=== PATIENT | female | born 1940 | race Caucasian/White ===

== ENCOUNTER 2021-04-28 23:35 | Inpatient (IN) | payer MEDICARE, BC ==
[~2021-04-28] VITALS: Ht 160 cm; Wt 54.9 kg
--- NOTE | 2021-04-29 | NUR ---
PT WOO WITH PSYCHIATRIC 5150 HOLD FOR INCREASED BEHAVIOUR AT FACILITY
[2021-04-29] MEDS ORDERED: OLANZAPINE 10 MG VIAL IM ONE ×2 (00:22→00:30)
[2021-04-29 03:02] LABS: BASOPHILS # (AUTO) 0.1 K/uL (0.0-0.2); BASOPHILS % (AUTO) 1.1 % (0.0-2.0); EOSINOPHILS % (AUTO) 1.1 % (0.0-6.0); HEMATOCRIT 37 % (33-45); LYMPHOCYTES # (AUTO) 2.8 K/uL (0.8-4.8); LYMPHOCYTES % (AUTO) 23.9 % (20.0-44.0); MEAN CORPUSCULAR HGB CONC 32 g/dl (31.0-36.0); MEAN CORPUSCULAR VOLUME 93 fL (82-100); MONOCYTES # (AUTO) 1.1 K/uL (0.1-1.30); MONOCYTES % (AUTO) 9.6 % (2.0-12.0); NEUTROPHILS # (AUTO) 7.5 K/uL (1.8-8.9); NEUTROPHILS % (AUTO) 64.3 % (43.0-81.0); PLATELET COUNT (AUTO) 323 K/uL (150-450); RED BLOOD CELL COUNT(AUTO) 4.01 MIL/uL (4.0-5.2); WHITE BLOOD COUNT (AUTO) 11.6 K/uL (4.3-11.0)
[2021-04-29 03:16] LABS: BILIRUBIN,URINE NEGATIVE (NEGATIVE); COLOR,URINE YELLOW (YELLOW); LEUKOCYTE ESTERASE ,URINE NEGATIVE (NEGATIVE); NITRITE, URINE NEGATIVE (NEGATIVE); PH,URINE 5.5 (5.0-8.0); PROTEIN,URINE NEGATIVE (NEGATIVE); UGLUCOSE 250 MG/DL mg/dL (NEGATIVE); UROBILINOGEN,URINE 0.2 EU/dL (0.2)
[2021-04-29 04:37] LABS: CALCIUM, SERUM 9.2 mg/dL (8.5-10.1); CARBON DIOXIDE 23 mmol/L (21-32); CHLORIDE 107 mmol/L (98-107); CREATININE 1.1 mg/dL (0.6-1.3); GLUCOSE 198 mg/dL (74-106); POTASSIUM 5.1 mmol/L (3.5-5.1); SODIUM SERUM 140 mmol/L (136-145); UREA NITROGEN, BLOOD 26 mg/dL (7-18)
[2021-04-29 04:42] LABS: ALANINE AMINOTRANSFERASE 68 U/L (12-78); ALBUMIN 3.7 g/dL (3.4-5.0); ALKALINE PHOSPHATASE 185 U/L (46-116); ASPARTATE AMINOTRANSFERASE 37 U/L (15-37); TOTAL PROTEIN, SERUM 7.5 g/dL (6.4-8.2)
[2021-04-29 04:43] LABS: ACETAMINOPHEN 0 ug/ml (10-30); ALCOHOL, BLOOD < 0 mg/dL (0-0); BILIRUBIN,DIRECT 0.1 mg/dL (0.0-0.2)
--- NOTE | 2021-04-29 04:59 | NUR ---
report given to serena brooks
--- NOTE | 2021-04-29 05:00 | NUR ---
bed 217
[2021-04-29] MEDS ORDERED: METF-442 PO (05:06)
[2021-04-29] MEDS ORDERED: METO25TA6 PO (05:06)
[2021-04-29] MEDS ORDERED: ESCI5TAB PO (05:07)
[2021-04-29] MEDS ORDERED: LOSA50TA39 PO (05:08)
[2021-04-29] MEDS ORDERED: ASPI-1169 PO (05:10)
[2021-04-29] MEDS ORDERED: GLIP5TAB13 PO (05:11)
[2021-04-29] MEDS ORDERED: POLY17PO4 PO (05:11)
[2021-04-29] MEDS ORDERED: FAMO20TA8 PO (05:12)
[2021-04-29] MEDS ORDERED: LEVO125T8 PO (05:13)
[2021-04-29] MEDS ORDERED: QUET25TA PO (05:14)
[2021-04-29] MEDS ORDERED: ATOR10TA PO (05:14)
[2021-04-29] MEDS ORDERED: GABA-532 PO (05:15)
[2021-04-29] MEDS ORDERED: IBUP-1953 PO (05:17)
--- NOTE | 2021-04-29 05:17 | NUR ---
MRSA SWAB COLLECTED AND SENT TO LAB. PATIENT'S BELONGINGS LIST DONE.
[2021-04-29] MEDS ORDERED: ALBU2.5V38 NEB (05:18)
[2021-04-29] MEDS ORDERED: CLON0.5T4 PO (05:20)
[2021-04-29 06:15] LABS: BILIRUBIN,TOTAL 0.4 mg/dL (0.2-1.0)
--- NOTE | 2021-04-29 06:21 | NUR ---
PT TAKEN TO GPS VIA [place].
--- NOTE | 2021-04-29 06:43 | NUR ---
RN NOTE: PATIENT REFUSED FULL SKIN ASSESSMENT, UNCOOPERATIVE, AGITATED, YELLING, SCREAMING, AGGRESSIVE, NON REDIRECTABLE AT THIS TIME. ONLY ALLOWED RIGHT, LEFT ARM & LEFT SECOND TOE PICTURE.
--- NOTE | 2021-04-29 06:44 | NUR ---
RN NOTE PATIENT REFUSED VITALS UPON ADMISSION, TOOK OFF BP CUFF AND THREW IT ON THE FLOOR. UNCOOPERATIVE, NON COMPLAINT, AGITATED, PARANOID, LOUD AND KEPT REFUSING TO COOPERATE WITH PLAN OF CARE.
--- NOTE | 2021-04-29 06:59 | NUR ---
RN NOTE PATIENT REFUSED MRSA X 3, UNCOOPERATIVE, ASKED THE NURSE TO LEAVE THE ROOM AND NEVER BOTHER HER AGAIN.
[2021-04-29] MEDS ORDERED: MAG HYDROX/AL HYDROX/SIMETH 30 ML UDC PO PRN (07:00)
[2021-04-29] MEDS ORDERED: MAGNESIUM HYDROXIDE 30 ML UDC PO PRN (07:00)
[2021-04-29] MEDS ORDERED: ACETAMINOPHEN 325 MG TABLET PO PRN (07:00)
[2021-04-29] MEDS ORDERED: TEMAZEPAM 7.5 MG CAPSULE PO PRN (07:00)
--- NOTE | 2021-04-29 07:10 | NUR ---
Admitted an 81 years old female on 5150 hold for DTS and GD at 0617. Pt. arrived to the unit via a gurney, assisted by nurse from [facility], ER. Per hold, patient is very loud, not following directions, yelling, being disruptive. patient refused her meds. [facility] nurse kylee reported, patient was hitting her head on the door, yelling not listening, refusing meds. patient is uncooperative with plan of care, disruptive, yelling, screaming, loud, paranoid, unpredictable, agitated, aggressive. Patient refused vitals, mrsa & full skin assessment. Patient refused to provide covid vaccine and pneumococcal vaccine information, keeps repeating, " I am not on 5950 hold, it does not exist." Ambulatory but unsteady. Belongings & contraband done. pt. only has top and shirt. Pt. was offered snack & fluids but patient refused. BS is 109 mg/dl. patient refused to sign all admission papers. Pt. oriented to the unit, needs attended, Endorsed to am RN for continuity of care and admission assessment.
[2021-04-29] MEDS ORDERED: BLOOD SUGAR DIAGNOSTIC 1 EACH STRIP IN ONE (07:30)
[2021-04-29 08:00] VITALS: BP 131/63
[2021-04-29] MEDS ORDERED: ALBUTEROL FS 2.5 MG/3 ML VIAL.NEB NEB PRN (10:00)
[2021-04-29] MEDS ORDERED: IBUPROFEN 400 MG TABLET PO PRN (10:00)
[2021-04-29] MEDS: GABAPENTIN 100 MG CAPSULE PO SCH ×2 (13:00→21:12)
[2021-04-29 16:08] VITALS: BP 132/66
[2021-04-29] MEDS: glipiZIDE 5 MG TABLET PO SCH (16:30)
[2021-04-29] MEDS: METOPROLOL TARTRATE 25 MG TABLET PO SCH (17:00)
[2021-04-29] MEDS: METFORMIN 500 MG TABLET PO SCH (17:00)
--- NOTE | 2021-04-29 17:19 | NUR ---
GPS/RN PT REFUSED THE MEDS. OFFERED X3. PT STATES" I DO NOT NEED MEDS..." PT AGREED TO LET RN TO DO ACCUCHECK.
[2021-04-29] MEDS: ATORVASTATIN 10 MG TABLET PO SCH (17:27)
--- NOTE | 2021-04-29 17:46 | NUR ---
GPS/RN PT WAS OFFERED LOPRESSOR AND NEURONTIN. PT REFUSED STATING :" I DO NOT HAVE HYPERTENSION, YOU,WHAT, GONNA KILL ME..." DR STEVEN MADE AWARE OF PT REFUSAL.
[2021-04-29] MEDS: clonazePAM 0.5 MG TABLET PO SCH (18:00)
--- NOTE | 2021-04-29 18:11 | NUR ---
RN-CO: PATIENT REFUSED KLONOPIN WHEN I OFFERD IT TO HERE. PT STATED " I DON'T NEED ANY MEDICATIONS, BEC I DON'T KNOW WHAT ARE YOU GIVING ME."
--- NOTE | 2021-04-29 18:11 | NUR ---
GPS/RN PT REFUSED CLONAZEPAM PO OFFERED X3.
[2021-04-29 19:56] VITALS: BP 137/65
[2021-04-29] MEDS: DIVALPROEX SODIUM 250 MG TABLET.DR PO SCH (21:00)
--- NOTE | 2021-04-29 21:14 | NUR ---
GPS-RN NOTES: MEDICATION COMPLIANCE PATIENT REFUSED SCHEDULED DEPAKOTE FOR TONIGHT. DESPITE OF EDUCATION PROVIDED REGARDING MEDICATION COMPLIANCE. EXPLAINED RISKS/BENEFITS. PATIENT CONTINUED TO REFUSE X3. WILL CONTINUE TO MONITOR. Addendum: 04/30/21 at 0642 by NIC HERNANDEZ RN CORRECTION ON ABOVE DOCUMENTATION: MEDICATION REFUSAL NOT MEDICATION COMPLIANCE
[2021-04-30] MEDS: GABAPENTIN 100 MG CAPSULE PO SCH ×3 (05:20→21:37)
[2021-04-30] MEDS: clonazePAM 0.5 MG TABLET PO SCH ×2 (06:00→17:13)
[2021-04-30 06:39] LABS: BASOPHILS # (AUTO) 0.1 K/uL (0.0-0.2); BASOPHILS % (AUTO) 0.8 % (0.0-2.0); EOSINOPHILS % (AUTO) 1.7 % (0.0-6.0); HEMATOCRIT 34 % (33-45); HEMOGLOBIN 11.3 g/dL (11.5-14.8); LYMPHOCYTES # (AUTO) 2.7 K/uL (0.8-4.8); LYMPHOCYTES % (AUTO) 25.8 % (20.0-44.0); MEAN CORPUSCULAR HGB CONC 33 g/dl (31.0-36.0); MEAN CORPUSCULAR VOLUME 91 fL (82-100); MONOCYTES # (AUTO) 0.7 K/uL (0.1-1.30); MONOCYTES % (AUTO) 6.4 % (2.0-12.0); NEUTROPHILS # (AUTO) 6.8 K/uL (1.8-8.9); NEUTROPHILS % (AUTO) 65.3 % (43.0-81.0); PLATELET COUNT (AUTO) 307 K/uL (150-450); RED BLOOD CELL COUNT(AUTO) 3.72 MIL/uL (4.0-5.2); WHITE BLOOD COUNT (AUTO) 10.4 K/uL (4.3-11.0)
--- NOTE | 2021-04-30 06:39 | NUR ---
PS-RN NOTES: MEDICATION REFUSAL PATIENT REFUSED SCHEDULED CLONAZEPAM AT 0600. DESPITE OF EDUCATION PROVIDED REGARDING MEDICATION COMPLIANCE AND EXPLAINED RISKS/BENEFITS. PATIENT CONTINUED TO REFUSE X3. PATIENT STATED, "NO, I DON'T NEED IT. WILL ENDORSE TO DAY SHIFT NURSE FOR CONTINUITY OF CARE.
[2021-04-30 07:13] LABS: CALCIUM, SERUM 8.3 mg/dL (8.5-10.1); CREATININE 0.7 mg/dL (0.6-1.3); POTASSIUM 4.5 mmol/L (3.5-5.1)
[2021-04-30] MEDS: glipiZIDE 5 MG TABLET PO SCH ×2 (07:30→16:14)
--- NOTE | 2021-04-30 07:30 | NUR ---
RECEIVED PATIENT RESTING IN HER BED, ALERT, GUARDED, NO ACUTE DISTRESS NOTED..VSS. REFUSED FULL BODY ASSESSMENT. IN COOPERATIVE WITH CARE.SAFETY PRECAUTIONS OBSERVED ALL NEEDS ATTENDED AND ANTICIPATED. WILL CONTINUE MONITORING Q15MIN FOR SAFETY AND BEHAVIOR.
[2021-04-30 08:00] VITALS: BP 133/63
[2021-04-30] MEDS: LEVOTHYROXINE SODIUM 125 MCG TABLET PO SCH (08:35)
[2021-04-30] MEDS: ASPIRIN 81 MG TAB.CHEW PO SCH (08:36)
[2021-04-30] MEDS: LOSARTAN POTASSIUM 50 MG TABLET PO SCH (08:40)
[2021-04-30] MEDS: DIVALPROEX SODIUM 250 MG TABLET.DR PO SCH ×2 (08:42→21:37)
[2021-04-30] MEDS: HALOPERIDOL 1 MG TABLET PO SCH ×3 (08:42→16:43)
[2021-04-30] MEDS: METFORMIN 500 MG TABLET PO SCH ×2 (08:42→16:43)
[2021-04-30] MEDS: METOPROLOL TARTRATE 25 MG TABLET PO SCH ×2 (08:42→16:43)
[2021-04-30] MEDS: FAMOTIDINE (20 MG) 20 MG TABLET PO SCH (08:43)
[2021-04-30] MEDS: LORAZEPAM 0.5 MG TABLET PO PRN (09:55)
--- NOTE | 2021-04-30 13:24 | NUR ---
VINICIO Initial Discharge Plan: Pt currently resides at [facility]. VINICIO contacted [facility] to see if pt is welcomed back and will notify this SW. VINICIO will coordinate with patient, MD, and treatment team for appropriate discharge.
--- NOTE | 2021-04-30 13:42 | NUR ---
VINICIO Family Contact: VINICIO received a call from Aurea (Friend) ([phone]) who stated that she is the DPOA. VINICIO requested for Aurea to send DPOA documents to this SW. VINICIO left a detailed voicemail to gather collateral. SW waiting for a call back,
--- NOTE | 2021-04-30 15:22 | NUR ---
SNF Contact: VINICIO contacted Arnol Méndez from [facility] who stated that the pt is welcomed back upon dc.
[2021-04-30 16:00] VITALS: BP 136/63
[2021-04-30 16:21] VITALS: BP 136/63
[2021-04-30] MEDS: ATORVASTATIN 10 MG TABLET PO SCH (17:13)
[2021-04-30 20:08] VITALS: BP 134/57
[2021-05-01] MEDS: GABAPENTIN 100 MG CAPSULE PO SCH ×4 (05:00→21:00)
[2021-05-01] MEDS: clonazePAM 0.5 MG TABLET PO SCH ×3 (05:27→17:32)
--- NOTE | 2021-05-01 05:36 | NUR ---
Pt refused meds Klonopin 0.25 mg po and Neurontin po. Offered x3 and explained risk and benefits. Still refused. Pt is very agitated and aggressive. Stating, "Get out of here, i dont want any medicines at this time." Charge nurse RN aware. Will endorse to next shift.
[2021-05-01] MEDS: LEVOTHYROXINE SODIUM 125 MCG TABLET PO SCH (07:30)
[2021-05-01] MEDS: glipiZIDE 5 MG TABLET PO SCH ×2 (07:30→16:30)
[2021-05-01 08:00] VITALS: BP 122/68
[2021-05-01] MEDS: ASPIRIN 81 MG TAB.CHEW PO SCH (08:56)
[2021-05-01] MEDS: LOSARTAN POTASSIUM 50 MG TABLET PO SCH (08:56)
[2021-05-01] MEDS: DIVALPROEX SODIUM 250 MG TABLET.DR PO SCH ×2 (08:57→21:00)
[2021-05-01] MEDS: HALOPERIDOL 1 MG TABLET PO SCH ×3 (08:57→17:00)
[2021-05-01] MEDS: METFORMIN 500 MG TABLET PO SCH ×2 (08:57→17:00)
[2021-05-01] MEDS: FAMOTIDINE (20 MG) 20 MG TABLET PO SCH (08:58)
[2021-05-01] MEDS: METOPROLOL TARTRATE 25 MG TABLET PO SCH ×2 (09:00→17:32)
[2021-05-01] MEDS ORDERED: HALOPERIDOL LACTATE INJ 5 MG/ML VIAL IM STA (09:57)
[2021-05-01] MEDS ORDERED: diphenhydrAMINE HCL 50 MG/ML VIAL IM STA (09:58)
--- NOTE | 2021-05-01 10:07 | NUR ---
VINICIO Family Contact: VINICIO Aurea (Friend) ([phone]) who states that she is the DPOA and will send documents to this SW. VINICIO contacted her and left her a detailed voicemail to of information to send the DPOA. She had left this SW a voicemail requesting to speak to the doctor. VINICIO notified NAYAN Cook
--- NOTE | 2021-05-01 10:29 | NUR ---
Patient start to get agitated in her room ,banging her head on the ,yelling and screaming .offered Ativan po patient refused ,redirect patient into lower stimuli setting and tried to calm her down but unsuccessful.Fiona Guillen DNP notified with new order Haldol 2MG IM ,BENADRYL 25MG given at 10:29 ,close monitoring on patient ,patient refused VS x4 ,no S/S distress noted ,no SOB .Will continue to monitor for safety q15 minutes.
[2021-05-01 16:30] VITALS: BP 131/71
[2021-05-01] MEDS: ATORVASTATIN 10 MG TABLET PO SCH (17:31)
[2021-05-01 20:12] VITALS: BP 162/73
--- NOTE | 2021-05-01 22:17 | NUR ---
Pt awake and alert, offered 2100 meds 3x, and pt still refused to take it, charge nurse informed...
[2021-05-02] MEDS: GABAPENTIN 100 MG CAPSULE PO SCH ×3 (05:00→21:12)
[2021-05-02] MEDS: clonazePAM 0.5 MG TABLET PO SCH ×2 (05:01→17:07)
[2021-05-02 08:00] VITALS: BP 127/77
[2021-05-02] MEDS: FAMOTIDINE (20 MG) 20 MG TABLET PO SCH (08:47)
[2021-05-02] MEDS: HALOPERIDOL 1 MG TABLET PO SCH ×4 (08:48→17:00)
[2021-05-02] MEDS: DIVALPROEX SODIUM 250 MG TABLET.DR PO SCH ×2 (08:48→21:00)
[2021-05-02] MEDS: METFORMIN 500 MG TABLET PO SCH ×3 (08:48→17:06)
[2021-05-02] MEDS: ASPIRIN 81 MG TAB.CHEW PO SCH (08:49)
[2021-05-02] MEDS: glipiZIDE 5 MG TABLET PO SCH ×2 (08:49→17:06)
[2021-05-02] MEDS: METOPROLOL TARTRATE 25 MG TABLET PO SCH ×2 (08:53→17:06)
[2021-05-02] MEDS: LEVOTHYROXINE SODIUM 125 MCG TABLET PO SCH (08:54)
[2021-05-02] MEDS: LOSARTAN POTASSIUM 50 MG TABLET PO SCH (08:54)
[2021-05-02] MEDS: LORAZEPAM 0.5 MG TABLET PO PRN (12:57)
--- NOTE | 2021-05-02 12:57 | NUR ---
GIVEN ATIVAN FOR AGITATION.
[2021-05-02 16:00] VITALS: BP 150/89
[2021-05-02] MEDS: ATORVASTATIN 10 MG TABLET PO SCH (17:05)
--- NOTE | 2021-05-02 17:52 | NUR ---
refused zohreh. metoprolol,although advised against it.bp 150/89,hrate 62.
[2021-05-02 20:00] VITALS: BP 151/69
--- NOTE | 2021-05-02 21:19 | NUR ---
RN NOTE PT REFUSED TO TAKE DEPAKOTE, EXPLAINED RISKS AND BENEFITS, VERBALIZES UNDERSTANDING, STILL REFUSED. PT TOOK NEURONTIN SCHEDULED. WILL CONTINUE TO MONITOR.
[2021-05-03] MEDS: GABAPENTIN 100 MG CAPSULE PO SCH ×3 (05:04→21:00)
[2021-05-03] MEDS: clonazePAM 0.5 MG TABLET PO SCH ×2 (06:00→18:00)
[2021-05-03] MEDS: glipiZIDE 5 MG TABLET PO SCH ×2 (07:30→16:30)
[2021-05-03 08:00] VITALS: BP 140/70
[2021-05-03] MEDS: LEVOTHYROXINE SODIUM 125 MCG TABLET PO SCH (08:41)
[2021-05-03] MEDS: ASPIRIN 81 MG TAB.CHEW PO SCH (08:41)
[2021-05-03] MEDS: LOSARTAN POTASSIUM 50 MG TABLET PO SCH (08:41)
[2021-05-03] MEDS: FAMOTIDINE (20 MG) 20 MG TABLET PO SCH (08:43)
[2021-05-03] MEDS: METOPROLOL TARTRATE 25 MG TABLET PO SCH ×2 (09:00→16:42)
[2021-05-03] MEDS: DIVALPROEX SODIUM 250 MG TABLET.DR PO SCH ×2 (09:00→21:00)
[2021-05-03] MEDS: METFORMIN 500 MG TABLET PO SCH ×2 (09:00→16:42)
[2021-05-03] MEDS: HALOPERIDOL 1 MG TABLET PO SCH ×3 (09:00→17:00)
--- NOTE | 2021-05-03 09:38 | NUR ---
Pt. is selective on meds. Refused to take Haldol po, Depakote, Glucotrol, Metformin and Lopressor. Pt. said her BP and BS is ok and she doesn't need Haldol and Depakote. Explained on the importance and offered 3x and still refusing.
--- NOTE | 2021-05-03 12:53 | NUR ---
RN-CO: DR VILLEGAS MADE AWARE OF THE RIESE HEARING TODAY AT 1600.
--- NOTE | 2021-05-03 13:42 | NUR ---
Pt. took only the Gabapentin at this time and refused to take the Haldol po. Explained on the importance and offered 3x and still refusing and said "I don't need it".
[2021-05-03 16:00] VITALS: BP 142/72
--- NOTE | 2021-05-03 16:53 | NUR ---
Received a call from Dr. Chirinos telling that Riese is upheld and gave an order to give Haldol 2 mg IM prn for each refusal of Haldol po.
[2021-05-03] MEDS: HALOPERIDOL LACTATE INJ 5 MG/ML VIAL IM PRN (17:05)
--- NOTE | 2021-05-03 17:31 | NUR ---
Haldol given IM as ordered for pt. refused Haldol po.
[2021-05-03] MEDS: ATORVASTATIN 10 MG TABLET PO SCH (18:00)
--- NOTE | 2021-05-03 20:00 | NUR ---
RN NOTES: REFUSED VITAL SIGNS PT. REFUSED VITAL SIGNS OFFERD X3 EXPLINED RISKS AND BENFITS STRONGLY REFUSED, PT. IS VERY AGITATED AND AGGRESSIVE , NON REDIRECTABLE ,PT. STATING NO NEEDS VITAL SIGNS , I AM OK, CHARGE NURSE MADE AWRE, WILL CONTINUE WITH CARE.
--- NOTE | 2021-05-03 21:47 | NUR ---
RN NOTES: REFUSED MEDICATIONS PT. REFUSED DEPAKOTE 250 MG PO, GABAPENTIN 100 MG PO OFFERD X3 EXPLINED RISKS AND BENFITS STRONGLY REFUSED, PT. IS VERY AGITATED AND AGGRESSIVE ,PT. STATING GET OUT FROM HERE, I DONT WANT TAKE ANY MEDICATIONS, CHARGE NURSE MADE AWRE, WILL CONTINUE WITH CARE.
[2021-05-04] MEDS: GABAPENTIN 100 MG CAPSULE PO SCH ×3 (05:00→20:33)
[2021-05-04] MEDS: clonazePAM 0.5 MG TABLET PO SCH ×2 (05:38→17:18)
--- NOTE | 2021-05-04 05:39 | NUR ---
RN NOTES: REFUSED MEDICATIONS PT. REFUSED SCHEDULE MEDS, GABAPENTIN 100 MG PO, KLONOPIN 0.25 MG PO OFFERD X3 EXPLINED RISKS AND BENFITS STRONGLY REFUSED, PT. IS VERY AGITATED AND AGGRESSIVE ,PT. STATING , I DONT WANT TAKE ANY MEDICATIONS, CHARGE NURSE MADE AWRE, WILL CONTINUE WITH CARE.
[2021-05-04] MEDS: glipiZIDE 5 MG TABLET PO SCH ×2 (07:30→16:39)
[2021-05-04] MEDS: LEVOTHYROXINE SODIUM 125 MCG TABLET PO SCH (07:30)
[2021-05-04 08:00] VITALS: BP 142/75
[2021-05-04] MEDS: HALOPERIDOL 1 MG TABLET PO SCH ×2 (09:34→20:34)
[2021-05-04] MEDS: DIVALPROEX SODIUM 250 MG TABLET.DR PO SCH ×2 (09:34→20:33)
[2021-05-04] MEDS: FAMOTIDINE (20 MG) 20 MG TABLET PO SCH (09:39)
[2021-05-04] MEDS: ASPIRIN 81 MG TAB.CHEW PO SCH (09:39)
[2021-05-04] MEDS: METFORMIN 500 MG TABLET PO SCH ×2 (09:40→17:19)
[2021-05-04] MEDS: METOPROLOL TARTRATE 25 MG TABLET PO SCH ×2 (09:40→17:19)
[2021-05-04] MEDS: LOSARTAN POTASSIUM 50 MG TABLET PO SCH (09:40)
[2021-05-04 16:00] VITALS: BP 133/93
--- NOTE | 2021-05-04 16:15 | NUR ---
DPOA: VINICIO Villar (Friend) ([phone]) who states that she is the DPOA and sent documents to this VINICIO. VINICIO placed in chart.
[2021-05-04] MEDS: ATORVASTATIN 10 MG TABLET PO SCH (17:19)
--- NOTE | 2021-05-04 20:30 | NUR ---
RN NOTE CLONAZEPAM PULLED OUT ACCIDENTALLY AT THE WRONG TIME, IT IS TO BE GIVEN AT 0600. RETURNED MED TO [facility] THROUGH "MISC. RETURN" A WHOLE PILL. CHARGE NURSE AWARE.
[2021-05-04 21:15] VITALS: BP 149/67
[2021-05-05] MEDS: GABAPENTIN 100 MG CAPSULE PO SCH ×4 (05:06→21:22)
[2021-05-05] MEDS: clonazePAM 0.5 MG TABLET PO SCH ×2 (05:06→17:41)
[2021-05-05 08:00] VITALS: BP 127/67
[2021-05-05] MEDS: METOPROLOL TARTRATE 25 MG TABLET PO SCH ×2 (08:20→17:35)
[2021-05-05] MEDS: ASPIRIN 81 MG TAB.CHEW PO SCH (08:20)
[2021-05-05] MEDS: METFORMIN 500 MG TABLET PO SCH ×2 (08:21→17:34)
[2021-05-05] MEDS: LOSARTAN POTASSIUM 50 MG TABLET PO SCH (08:21)
[2021-05-05] MEDS: DIVALPROEX SODIUM 250 MG TABLET.DR PO SCH ×2 (08:21→21:22)
[2021-05-05] MEDS: LEVOTHYROXINE SODIUM 125 MCG TABLET PO SCH (08:22)
[2021-05-05] MEDS: FAMOTIDINE (20 MG) 20 MG TABLET PO SCH (08:22)
[2021-05-05] MEDS: HALOPERIDOL 1 MG TABLET PO SCH ×2 (08:22→21:22)
[2021-05-05] MEDS: glipiZIDE 5 MG TABLET PO SCH ×2 (08:28→17:34)
--- NOTE | 2021-05-05 09:30 | NUR ---
SUSPICIOUS IN AM AND CHECKING MEDS.
[2021-05-05 16:15] VITALS: BP 136/65
[2021-05-05] MEDS: ATORVASTATIN 10 MG TABLET PO SCH (17:34)
--- NOTE | 2021-05-05 17:41 | NUR ---
PT. REFUSED PANTERA.CLONOPIN.
--- NOTE | 2021-05-05 19:30 | NUR ---
GPS RN NOTE, RECEIVED PATIENT AWAKE AND IN BED, NO S/S OR COMPLAINTS OF PAIN AT THIS TIME. PATIENT IS DISPLAYING NO S/S OF APPARENT DISTRESS AT THIS TIME. PATIENT BREATHING IS UNLABORED WITH EQUAL RISE AND FALL OF THE CHEST. PATIENT IS ALERT AND ORIENTED X 2 ON ROOM AIR WITH A SPO2 95%. PATIENT IS SELECTIVE WITH MEDICATIONS, ANXIOUS AT TIMES, PARANOID, ARGUMENTATIVE, UNCOOPERATIVE AT TIMES, AND NEEDS REDIRECTION. PATIENT DENIES SUICIDAL AND HOMICIDAL IDEATIONS AT THIS TIME. PATIENT ASSISTED WITH TURNING AND REPOSITIONING Q2HR AND PRN FOR COMFORT AND CIRCULATION. PATIENT HAS NO NEEDS AT THIS TIME. PATIENT EDUCATED ON THE USE OF THE CALL MEJIA. PATIENT BED SIDE RAILS UP X 2 FOR SAFETY. PATIENT BED IS LOCKED, LOW, WITH BED ALARM ON. WILL CONTINUE TO MONITOR THIS PATIENT Q15 MINUTES WITH THE HELP OF STAFF TO MAINTAIN SAFETY.
[2021-05-05 20:00] VITALS: BP 128/61
[2021-05-06] MEDS: GABAPENTIN 100 MG CAPSULE PO SCH ×3 (05:28→21:27)
[2021-05-06] MEDS: clonazePAM 0.5 MG TABLET PO SCH ×2 (05:29→17:21)
--- NOTE | 2021-05-06 05:29 | NUR ---
GPS RN NOTE, PATIENT REFUSED KLONOPIN 0.25 MG PO Q12HR. OFFERED KLONOPIN THREE TIMES AND STILL PATIENT REFUSED STATING, " I DON'T FELL ANXIOUS SO I DON'T NEED ANY KLONOPIN ". EDUCATED PATIENT ON THE RISKS AND BENEFITS OF TAKING AND REFUSING KLONOPIN. WILL CONTINUE TO MONITOR MONITOR THIS PATIENT WITH THE HELP OF STAFF.
[2021-05-06 08:00] VITALS: BP 123/70
[2021-05-06] MEDS: ASPIRIN 81 MG TAB.CHEW PO SCH (08:29)
[2021-05-06] MEDS: glipiZIDE 5 MG TABLET PO SCH ×2 (08:29→17:27)
[2021-05-06] MEDS: LEVOTHYROXINE SODIUM 125 MCG TABLET PO SCH (08:29)
[2021-05-06] MEDS: FAMOTIDINE (20 MG) 20 MG TABLET PO SCH (08:30)
[2021-05-06] MEDS: HALOPERIDOL 1 MG TABLET PO SCH ×2 (08:30→21:00)
[2021-05-06] MEDS: DIVALPROEX SODIUM 250 MG TABLET.DR PO SCH ×2 (08:30→21:26)
[2021-05-06] MEDS: METOPROLOL TARTRATE 25 MG TABLET PO SCH ×2 (08:30→17:21)
[2021-05-06] MEDS: METFORMIN 500 MG TABLET PO SCH ×2 (08:30→17:21)
[2021-05-06] MEDS: LOSARTAN POTASSIUM 50 MG TABLET PO SCH (08:32)
[2021-05-06 16:00] VITALS: BP 146/67
[2021-05-06] MEDS: ATORVASTATIN 10 MG TABLET PO SCH (17:20)
[2021-05-06 20:22] VITALS: BP 143/67
[2021-05-06] MEDS: HALOPERIDOL LACTATE INJ 5 MG/ML VIAL IM PRN (21:43)
--- NOTE | 2021-05-06 21:43 | NUR ---
GPS-RN NOTES PATIENT REFUSED HALDOL PO. HALDOL 2MG IM GIVEN ORDERED
[2021-05-07] MEDS: GABAPENTIN 100 MG CAPSULE PO SCH ×3 (05:08→21:37)
[2021-05-07] MEDS: clonazePAM 0.5 MG TABLET PO SCH ×2 (06:00→17:14)
--- NOTE | 2021-05-07 06:19 | NUR ---
GPS-RN NOTES: MEDICATION REFUSAL PATIENT REFUSED SCHEDULED KLONOPIN AT 0600. DESPITE OF EDUCATION PROVIDED REGARDING MEDICATION COMPLIANCE. PATIENT CONTINUED TO REFUSE. PATIENT STATED "I DON'T NEED IT". WILL ENDORSE TO DAY SHIFT NURSE FOR CONTINUITY OF CARE.
[2021-05-07] MEDS: glipiZIDE 5 MG TABLET PO SCH ×2 (07:30→16:30)
[2021-05-07 08:00] VITALS: BP 131/55
[2021-05-07] MEDS: LOSARTAN POTASSIUM 50 MG TABLET PO SCH (08:11)
[2021-05-07] MEDS: ASPIRIN 81 MG TAB.CHEW PO SCH (08:11)
[2021-05-07] MEDS: DIVALPROEX SODIUM 250 MG TABLET.DR PO SCH ×2 (08:11→21:37)
[2021-05-07] MEDS: LEVOTHYROXINE SODIUM 125 MCG TABLET PO SCH (08:11)
[2021-05-07] MEDS: METOPROLOL TARTRATE 25 MG TABLET PO SCH ×2 (08:12→17:00)
[2021-05-07] MEDS: METFORMIN 500 MG TABLET PO SCH ×2 (08:12→16:42)
[2021-05-07] MEDS: FAMOTIDINE (20 MG) 20 MG TABLET PO SCH (08:12)
[2021-05-07] MEDS: HALOPERIDOL LACTATE INJ 5 MG/ML VIAL IM PRN (08:18)
[2021-05-07] MEDS: HALOPERIDOL 1 MG TABLET PO SCH ×2 (08:18→21:37)
--- NOTE | 2021-05-07 08:26 | NUR ---
PATIENT REFUSED HALDOL PO. HALDOL 2MG IM GIVEN ORDERED
[2021-05-07 16:00] VITALS: BP 150/77
[2021-05-07] MEDS: ATORVASTATIN 10 MG TABLET PO SCH (17:14)
--- NOTE | 2021-05-07 18:34 | NUR ---
UNABLE TO ADMINISTER IM HALDOL DECANOATE, PHARMACY WORKING ON CORRECT EMAR SCHEDULING. PER PHARMACY, THEY WILL INFORM US WHEN READY. WILL ENDORSE TO WALKER DUMONT.
--- NOTE | 2021-05-07 19:09 | NUR ---
ADMINISTERED IM HALDOL DECANOATE. WILL CONTINUE TO MONITOR.
[2021-05-07] MEDS ORDERED: HALOPERIDOL DECANOATE IM 100 MG/ML AMPUL IM SCH (19:30)
[2021-05-07 21:04] VITALS: BP 152/77
[2021-05-08] MEDS: GABAPENTIN 100 MG CAPSULE PO SCH ×3 (05:53→21:48)
[2021-05-08] MEDS: clonazePAM 0.5 MG TABLET PO SCH ×2 (05:54→17:05)
[2021-05-08] MEDS: glipiZIDE 5 MG TABLET PO SCH ×2 (07:30→16:30)
[2021-05-08 08:00] VITALS: BP 130/60
[2021-05-08] MEDS: LOSARTAN POTASSIUM 50 MG TABLET PO SCH (08:24)
[2021-05-08] MEDS: ASPIRIN 81 MG TAB.CHEW PO SCH (08:25)
[2021-05-08] MEDS: LEVOTHYROXINE SODIUM 125 MCG TABLET PO SCH (08:25)
[2021-05-08] MEDS: METOPROLOL TARTRATE 25 MG TABLET PO SCH ×2 (08:25→17:00)
[2021-05-08] MEDS: HALOPERIDOL 1 MG TABLET PO SCH ×2 (08:25→21:48)
[2021-05-08] MEDS: METFORMIN 500 MG TABLET PO SCH ×2 (08:25→17:00)
[2021-05-08] MEDS: DIVALPROEX SODIUM 250 MG TABLET.DR PO SCH ×2 (08:25→21:48)
[2021-05-08] MEDS: FAMOTIDINE (20 MG) 20 MG TABLET PO SCH (08:26)
--- NOTE | 2021-05-08 11:29 | NUR ---
DPOA: VINICIO Villar (Friend) ([phone]) DPOA and spoke with her in regards to pt's status and how she is doing.
[2021-05-08 16:09] VITALS: BP 148/75
[2021-05-08] MEDS: ATORVASTATIN 10 MG TABLET PO SCH (17:06)
[2021-05-09] MEDS: GABAPENTIN 100 MG CAPSULE PO SCH ×3 (05:45→20:57)
[2021-05-09] MEDS: clonazePAM 0.5 MG TABLET PO SCH ×2 (06:00→18:00)
[2021-05-09] MEDS: LEVOTHYROXINE SODIUM 125 MCG TABLET PO SCH (06:32)
[2021-05-09] MEDS: glipiZIDE 5 MG TABLET PO SCH ×2 (07:30→16:30)
[2021-05-09 08:00] VITALS: BP 120/57
[2021-05-09] MEDS: METFORMIN 500 MG TABLET PO SCH ×2 (08:25→17:00)
[2021-05-09] MEDS: ASPIRIN 81 MG TAB.CHEW PO SCH (08:25)
[2021-05-09] MEDS: METOPROLOL TARTRATE 25 MG TABLET PO SCH ×2 (08:26→17:00)
[2021-05-09] MEDS: FAMOTIDINE (20 MG) 20 MG TABLET PO SCH (08:27)
[2021-05-09] MEDS: DIVALPROEX SODIUM 250 MG TABLET.DR PO SCH ×2 (08:28→20:57)
[2021-05-09] MEDS: LOSARTAN POTASSIUM 50 MG TABLET PO SCH (08:29)
[2021-05-09] MEDS: HALOPERIDOL 1 MG TABLET PO SCH ×2 (08:32→20:57)
[2021-05-09 16:00] VITALS: BP 135/69
[2021-05-09] MEDS: ATORVASTATIN 10 MG TABLET PO SCH (18:00)
--- NOTE | 2021-05-09 19:30 | NUR ---
RN NOTES RECEIVED PT IN NO ACUTE RESPIRATORY DISTRESS. PT IN BEDROOM RESTING COMFORTABLY. NO SIGNS OF RESTLESSNESS AND AGITATION AT THIS TIME. WILL ENSURE TP PROVIDE SAFE AND COMFORTABLE ENVIRONMENT FOR THE PT AND TO MONITOR AND ADDRESS ALL NEEDS THROUGHOUT THE SHIFT.
[2021-05-09 20:00] VITALS: BP_SYST 120; BP_SYST 159; BP_DIAS 57; BP_DIAS 67
[2021-05-09 21:26] VITALS: BP 108/45
--- NOTE | 2021-05-10 | NUR ---
RN NOTES PATIENT REMAINED TO BE IN NO SIGNS OF ACUTE RESPIRATORY DISTRESS , SAFE ENVIRONMENT MAINTAINED FOR PT. WILL CONTINUE TO MONITOR AND REASSESS FOR ANY CHANGES THROUGHOUT THE CRISTHIAN
[2021-05-10] MEDS: GABAPENTIN 100 MG CAPSULE PO SCH ×3 (05:14→21:30)
[2021-05-10] MEDS: clonazePAM 0.5 MG TABLET PO SCH ×2 (05:15→18:00)
--- NOTE | 2021-05-10 06:49 | NUR ---
RN CLOSING NOTE: PATIENT REMAINS IN ROOM IN NO SIGNS OF RESPIRATORY DISTRESS; PATIENT ON ROOM AIR. SAFETY MEASURES IMPLEMENTED, BED IN LOWEST POSITION, LOCKED, SIDE RAILS UP, CALL LIGHT WITHIN REACH. ALL NEEDS AND ORDERS ADDRESSED DURING THE SHIFT.PATIENT KEPT CLEAN AND COMFORTABLE WITHIN THE SHIFT. PATIENT ENDORSED TO INCOMING SHIFT RN WITH STABLE VITAL SIGN AND FOR CONTINUITY OF CARE.
[2021-05-10] MEDS: glipiZIDE 5 MG TABLET PO SCH ×2 (07:30→16:30)
[2021-05-10 08:00] VITALS: BP 137/71
[2021-05-10] MEDS: ASPIRIN 81 MG TAB.CHEW PO SCH (08:39)
[2021-05-10] MEDS: LOSARTAN POTASSIUM 50 MG TABLET PO SCH (08:40)
[2021-05-10] MEDS: LEVOTHYROXINE SODIUM 125 MCG TABLET PO SCH (08:40)
[2021-05-10] MEDS: HALOPERIDOL 1 MG TABLET PO SCH ×2 (08:40→21:29)
[2021-05-10] MEDS: FAMOTIDINE (20 MG) 20 MG TABLET PO SCH (08:41)
[2021-05-10] MEDS: DIVALPROEX SODIUM 250 MG TABLET.DR PO SCH ×2 (09:00→21:30)
[2021-05-10] MEDS: METOPROLOL TARTRATE 25 MG TABLET PO SCH ×2 (09:00→17:00)
[2021-05-10] MEDS: METFORMIN 500 MG TABLET PO SCH ×2 (09:00→17:00)
[2021-05-10 16:00] VITALS: BP 149/77
[2021-05-10] MEDS: ATORVASTATIN 10 MG TABLET PO SCH (18:00)
[2021-05-10 20:03] VITALS: BP 162/77
[2021-05-10 20:10] VITALS: BP 162/77
[2021-05-10 20:35] VITALS: BP 148/61
[2021-05-11] MEDS: GABAPENTIN 100 MG CAPSULE PO SCH ×3 (05:00→20:26)
--- NOTE | 2021-05-11 05:13 | NUR ---
GPS RN NOTE: MEDICATION REFUSAL PATIENT REFUSED SCHEDULED GABAPENTIN AT 0500 DESPITE OF EDUCATION PROVIDED REGARDING MEDICATION COMPLIANCE. PATIENT CONTINUED TO REFUSE AND STATED," LET ME SLEEP,". WILL CONTINUE TO MONITOR.
[2021-05-11] MEDS: clonazePAM 0.5 MG TABLET PO SCH ×2 (06:22→18:00)
[2021-05-11] MEDS: glipiZIDE 5 MG TABLET PO SCH ×2 (07:30→16:30)
[2021-05-11 08:00] VITALS: BP 126/73
[2021-05-11] MEDS: DIVALPROEX SODIUM 250 MG TABLET.DR PO SCH ×2 (08:18→20:26)
[2021-05-11] MEDS: LEVOTHYROXINE SODIUM 125 MCG TABLET PO SCH (08:18)
[2021-05-11] MEDS: ASPIRIN 81 MG TAB.CHEW PO SCH (08:18)
[2021-05-11] MEDS: HALOPERIDOL 1 MG TABLET PO SCH ×2 (08:18→20:26)
[2021-05-11] MEDS: LOSARTAN POTASSIUM 50 MG TABLET PO SCH (08:19)
[2021-05-11] MEDS: METFORMIN 500 MG TABLET PO SCH ×2 (09:00→17:00)
[2021-05-11] MEDS: METOPROLOL TARTRATE 25 MG TABLET PO SCH ×2 (09:00→17:00)
[2021-05-11] MEDS: FAMOTIDINE (20 MG) 20 MG TABLET PO SCH (09:00)
[2021-05-11 16:00] VITALS: BP 133/52
[2021-05-11] MEDS: ATORVASTATIN 10 MG TABLET PO SCH (18:00)
[2021-05-11 20:24] VITALS: BP 141/78
[2021-05-11 22:00] VITALS: BP 129/69
[2021-05-12] MEDS: GABAPENTIN 100 MG CAPSULE PO SCH ×3 (05:05→21:06)
[2021-05-12] MEDS: clonazePAM 0.5 MG TABLET PO SCH ×2 (06:00→17:09)
--- NOTE | 2021-05-12 06:11 | NUR ---
GPS-RN NOTES: MEDICATION REFUSAL PATIENT REFUSED SCHEDULED KLONOPIN AT 0600. DESPITE OF EDUCATION PROVIDED REGARDING MEDICATION COMPLIANCE. PER PT. THAT MEDICATIONS MAKE ME SLEEPING AND TIRED. WILL CONTINUITY WITH CARE.
[2021-05-12] MEDS: glipiZIDE 5 MG TABLET PO SCH (07:30)
[2021-05-12 08:00] VITALS: BP 127/68
[2021-05-12] MEDS: ASPIRIN 81 MG TAB.CHEW PO SCH ×2 (08:21→09:00)
[2021-05-12] MEDS: HALOPERIDOL 1 MG TABLET PO SCH ×2 (08:21→21:06)
[2021-05-12] MEDS: DIVALPROEX SODIUM 250 MG TABLET.DR PO SCH ×3 (08:21→21:06)
[2021-05-12] MEDS: LEVOTHYROXINE SODIUM 125 MCG TABLET PO SCH (08:22)
[2021-05-12] MEDS: LOSARTAN POTASSIUM 50 MG TABLET PO SCH (08:22)
[2021-05-12] MEDS: METFORMIN 500 MG TABLET PO SCH ×2 (09:00→17:00)
[2021-05-12] MEDS: METOPROLOL TARTRATE 25 MG TABLET PO SCH ×2 (09:00→17:00)
[2021-05-12] MEDS: FAMOTIDINE (20 MG) 20 MG TABLET PO SCH (09:00)
--- NOTE | 2021-05-12 09:45 | NUR ---
Dr. Sanchez in the unit and made aware that pt. is selective on meds and ordered to d/c the Glipizide.
[2021-05-12 16:00] VITALS: BP 153/71
[2021-05-12] MEDS: ATORVASTATIN 10 MG TABLET PO SCH (18:00)
[2021-05-12 20:08] VITALS: BP 152/71
[2021-05-13] MEDS: clonazePAM 0.5 MG TABLET PO SCH ×2 (05:31→17:09)
[2021-05-13] MEDS: GABAPENTIN 100 MG CAPSULE PO SCH ×3 (05:31→21:16)
--- NOTE | 2021-05-13 07:21 | NUR ---
RN NOTES RECEIVED PT IN NO ACUTE RESPIRATORY DISTRESS. PT IN BEDROOM RESTING COMFORTABLY. NO SIGNS OF RESTLESSNESS AND AGITATION AT THIS TIME. WILL ENSURE TP PROVIDE SAFE AND COMFORTABLE ENVIRONMENT FOR THE PT AND TO MONITOR PATIENT THROUGHOUT SHIFT
[2021-05-13 08:00] VITALS: BP 142/76
[2021-05-13] MEDS: ASPIRIN 81 MG TAB.CHEW PO SCH (08:03)
[2021-05-13] MEDS: HALOPERIDOL 1 MG TABLET PO SCH ×2 (08:03→21:16)
[2021-05-13] MEDS: LEVOTHYROXINE SODIUM 125 MCG TABLET PO SCH (08:03)
[2021-05-13] MEDS: LOSARTAN POTASSIUM 50 MG TABLET PO SCH (08:03)
[2021-05-13] MEDS: METFORMIN 500 MG TABLET PO SCH ×2 (08:04→17:09)
[2021-05-13] MEDS: METOPROLOL TARTRATE 25 MG TABLET PO SCH ×2 (08:04→17:09)
[2021-05-13] MEDS: DIVALPROEX SODIUM 250 MG TABLET.DR PO SCH ×2 (08:04→21:16)
[2021-05-13] MEDS: FAMOTIDINE (20 MG) 20 MG TABLET PO SCH (08:04)
[2021-05-13] MEDS: LORAZEPAM 0.5 MG TABLET PO PRN (12:02)
--- NOTE | 2021-05-13 12:02 | NUR ---
RN NOTE PATIENT C/O ANXIOUS, RESTLESS, AGITATED. NONREDIRECTABLE PRN ATIVAN PO ADMINISTERED ORDERED. WILL CONTINUE TO MONITOR.
[2021-05-13 16:00] VITALS: BP 150/67
[2021-05-13] MEDS: ATORVASTATIN 10 MG TABLET PO SCH (17:09)
--- NOTE | 2021-05-13 18:03 | NUR ---
RN CLOSING NOTES PATIENT AWAKE IN BED AT THIS TIME. PATIENT REMAINED STABLE THROUGHOUT SHIFT. PT IS CALM AT THIS TIME, PT DENIES SI/HI. DENIES VISUAL AND AUDITORY HALLUCINATION. NO TREMORS OR EPS NOTED. SAFETY PRECAUTIONS IN PLACE AND MAINTAINED AT ALL TIMES. BED IN LOWEST LOCKED POSITION, HOB ELEVATED, SIDE RAILS UP X2, CALL LIGHT AND TABLE WITHIN REACH, WILL ENDORSE TO ONCOMING SHIFT
--- NOTE | 2021-05-13 19:30 | NUR ---
GPS RN NOTE, RECEIVED PATIENT AWAKE AND IN BED, NO S/S OR COMPLAINTS OF PAIN AT THIS TIME. PATIENT IS DISPLAYING NO S/S OF APPARENT DISTRESS AT THIS TIME. PATIENT BREATHING IS UNLABORED WITH EQUAL RISE AND FALL OF THE CHEST. PATIENT IS ALERT AND ORIENTED X 2 ON ROOM AIR WITH A SPO2 96%. PATIENT IS SELECTIVE WITH MEDICATIONS, ANXIOUS AT TIMES, PARANOID, ARGUMENTATIVE, UNCOOPERATIVE AT TIMES, AND NEEDS REDIRECTION. PATIENT DENIES SUICIDAL AND HOMICIDAL IDEATIONS AT THIS TIME. PATIENT ASSISTED WITH TURNING AND REPOSITIONING Q2HR AND PRN FOR COMFORT AND CIRCULATION. PATIENT HAS NO NEEDS AT THIS TIME. PATIENT EDUCATED ON THE USE OF THE CALL MEJIA. PATIENT BED SIDE RAILS UP X 2 FOR SAFETY. PATIENT BED IS LOCKED, LOW, WITH BED ALARM ON. WILL CONTINUE TO MONITOR THIS PATIENT Q15 MINUTES WITH THE HELP OF STAFF TO MAINTAIN SAFETY.
--- NOTE | 2021-05-13 19:53 | NUR ---
GPS RN NOTE, PATIENT REFUSED TO HAVE SKIN ASSESSMENT AND WEEKLY PHOTO'S TAKEN PER POLICY. OFFERED THREE TIMES AND STILL PATIENT REFUSED STATING, " NO NOT EVER ". ECAUDATED PATIENT ABOUT HOSPITAL POLICY. WILL CONTINUE TO MONITOR THIS PATIENT WITH THE HELP OF STAFF.
[2021-05-13 20:05] VITALS: BP 157/62
[2021-05-14] MEDS: clonazePAM 0.5 MG TABLET PO SCH ×2 (05:34→18:00)
[2021-05-14] MEDS: GABAPENTIN 100 MG CAPSULE PO SCH ×3 (05:34→21:10)
[2021-05-14] MEDS: LEVOTHYROXINE SODIUM 125 MCG TABLET PO SCH (07:30)
[2021-05-14 08:00] VITALS: BP 139/74
[2021-05-14] MEDS: LOSARTAN POTASSIUM 50 MG TABLET PO SCH (09:00)
[2021-05-14] MEDS: METOPROLOL TARTRATE 25 MG TABLET PO SCH ×2 (09:00→17:00)
[2021-05-14] MEDS: ASPIRIN 81 MG TAB.CHEW PO SCH (09:00)
[2021-05-14] MEDS: FAMOTIDINE (20 MG) 20 MG TABLET PO SCH (09:00)
[2021-05-14] MEDS: METFORMIN 500 MG TABLET PO SCH ×2 (09:00→17:00)
[2021-05-14] MEDS: HALOPERIDOL 1 MG TABLET PO SCH ×2 (09:10→21:10)
[2021-05-14] MEDS: DIVALPROEX SODIUM 250 MG TABLET.DR PO SCH ×2 (09:13→21:10)
[2021-05-14 16:00] VITALS: BP 141/67
[2021-05-14] MEDS: ATORVASTATIN 10 MG TABLET PO SCH (18:00)
[2021-05-14 19:56] VITALS: BP 152/62
[2021-05-14 20:15] VITALS: BP 152/62
[2021-05-15] MEDS: GABAPENTIN 100 MG CAPSULE PO SCH ×2 (05:06→13:00)
[2021-05-15] MEDS: clonazePAM 0.5 MG TABLET PO SCH (06:05)
--- NOTE | 2021-05-15 06:52 | NUR ---
RN NOTE COVID SWAB COLLECTED AND SENT TO LAB.
--- NOTE | 2021-05-15 06:53 | NUR ---
RN NOTE PATIENT SLEPT WELL AT NIGHT. NO BEHAVIOR EPISODE NOTED THROUGH OUT THE SHIFT.
[2021-05-15] MEDS: LEVOTHYROXINE SODIUM 125 MCG TABLET PO SCH (07:30)
[2021-05-15 08:00] VITALS: BP 136/66
--- NOTE | 2021-05-15 08:15 | NUR ---
SW Discharge Note: Patient will be discharged to [facility] facility [facility] [address] [address], [place] [address]; ). Please arrange transportation at 1PM. Biofuels Production Technician spoke with Susan title searcher at [facility]; ([phone], who stated patient will be accepted today. Patients DPOA Aurea ([phone]) is aware and agreeable. Patient is alert and oriented x3 and is unable to plan for self-care. Patient denies any suicidal or homicidal ideations. Patient is aware and agreeable with discharge plans. Patient will continue to follow-up with (psychiatrist) Dr. Zuniga located at [id number] [place] [id number]; ([phone]) and (car sales consultant) Dr. Orona [address], [place] [address]; ([phone]). Patient presents with euthymic and congruent mood.
[2021-05-15] MEDS: HALOPERIDOL 1 MG TABLET PO SCH (08:46)
[2021-05-15] MEDS: DIVALPROEX SODIUM 250 MG TABLET.DR PO SCH (08:46)
[2021-05-15] MEDS: ASPIRIN 81 MG TAB.CHEW PO SCH (08:47)
[2021-05-15] MEDS: METOPROLOL TARTRATE 25 MG TABLET PO SCH (08:48)
[2021-05-15] MEDS: LOSARTAN POTASSIUM 50 MG TABLET PO SCH (08:48)
[2021-05-15] MEDS: METFORMIN 500 MG TABLET PO SCH (08:48)
[2021-05-15] MEDS: FAMOTIDINE (20 MG) 20 MG TABLET PO SCH (08:49)
[2021-05-15] MEDS ORDERED: LORAZEPAM INJ 2 MG/ML VIAL IM STA (13:20)
--- NOTE | 2021-05-15 13:20 | NUR ---
Patient start to get agitated in her room and refused to go to [facility] ,loud ,not following directions ,disrupting unit and yells at staff .Offered Ativan po patient refused ,redirect patient into lower stimuli setting and tried to calm her down but unsuccessful. Unrein TAX ASSESSOR notified with new order Ativan 0.25mg IM AND given at 1320 ,patient voluntarily accept IM injection ,no physical hold close monitoring on patient ,patient refused VS x4 ,no S/S distress noted ,no SOB .Will continue to monitor for safety q15 minutes.
[2021-05-15 16:04] VITALS: BP 138/65
--- NOTE | 2021-05-15 16:35 | NUR ---
Patient discharged to [facility] in stable condition.Compliant with medications ,cooperative with treatment plans Patient denies SI/HI/AVH .Behavior improved ,psychiatric tx plans met ,medical tx plans differed for for continual monitoring Educated pt about after care plan (Exit -care)and copy provided .Returned personal belongings to patient med list given and explained to patient able to verbalize understanding, report given to Louis PARK in facility .Vs stable ,no c/o pain .Patient seen by Erica PUBLIC AFFAIRS SPECIALIST and Michael Mcclellan DNP with discharge orders .Patient discharge at 1635 with ambulance.
[2021-06-06] MEDS ORDERED: HALOPERIDOL DECANOATE IM 100 MG/ML AMPUL IM SCH (18:16)
== END 2021-05-15 16:35 | DRG 885 ==
LOC: ER 23:37 → GPS 04-29 05:56
PROVIDERS: ADMIT Psychiatry & Neurology Psychiatry; ATTEND Nurse Practitioner Acute Care
DX: F31.64 Bipolar disorder, current episode mixed, severe, with psychotic features (principal); F23 Brief psychotic disorder; E11.9 Type 2 diabetes mellitus without complications; E03.9 Hypothyroidism, unspecified; E78.5 Hyperlipidemia, unspecified; F03.90 Unspecified dementia, unspecified severity, without behavioral disturbance, psychotic disturbance, mood disturbance, and anxiety; I25.10 Atherosclerotic heart disease of native coronary artery without angina pectoris; I10 Essential (primary) hypertension; J44.9 Chronic obstructive pulmonary disease, unspecified; Z79.899 Other long term (current) drug therapy; Z88.1 Allergy status to other antibiotic agents; Z88.8 Allergy status to other drugs, medicaments and biological substances; Z79.51 Long term (current) use of inhaled steroids; Z79.82 Long term (current) use of aspirin; Z79.84 Long term (current) use of oral hypoglycemic drugs
CPT/HCPCS: 36415; 80048-TC; 80061-TC; 80076-TC; 80164-TC; 82962-TC; 85025-TC; 87081-TC; C9803; G0480; J1200; J1630; J1631; J2060; J3490

== ENCOUNTER 2021-09-06 21:43 | Inpatient (IN) | payer MEDICARE, BC ==
[~2021-09-06] VITALS: Ht 160 cm; Wt 56.7 kg
[~2021-09-06 21:43] MED LIST: ALBU2.5V38 NEB; ASPI-1169 PO; ATOR10TA PO; CLON0.5T4 PO; ESCI5TAB PO; FAMO20TA8 PO; GABA-532 PO; GLIP5TAB13 PO; IBUP-1953 PO; LEVO125T8 PO; LOSA50TA39 PO; METF-442 PO; METO25TA6 PO; POLY17PO4 PO; QUET25TA PO
[2021-09-06] MEDS ORDERED: IV NS 0.9% 1,000 ML BAG IV ONE (22:30)
[2021-09-06] MEDS ORDERED: INSULIN REGULAR, HUMAN 100 UNIT/ML 10 ML VIAL ONE (22:34)
[2021-09-06 22:55] LABS: BASOPHILS % (AUTO) 0.1 % (0.0-2.0); HEMATOCRIT 36 % (33-45); HEMOGLOBIN 11.6 g/dL (11.5-14.8); LYMPHOCYTES # (AUTO) 0.9 K/uL (0.8-4.8); LYMPHOCYTES % (AUTO) 3.1 % (20.0-44.0); MEAN CORPUSCULAR HGB CONC 32 g/dl (31.0-36.0); MEAN CORPUSCULAR VOLUME 87 fL (82-100); MONOCYTES # (AUTO) 3.1 K/uL (0.1-1.30); MONOCYTES % (AUTO) 10.4 % (2.0-12.0); NEUTROPHILS # (AUTO) 25.4 K/uL (1.8-8.9); NEUTROPHILS % (AUTO) 86.4 % (43.0-81.0); PLATELET COUNT (AUTO) 269 K/uL (150-450); RED BLOOD CELL COUNT(AUTO) 4.11 MIL/uL (4.0-5.2); WHITE BLOOD COUNT (AUTO) 29.4 K/uL (4.3-11.0)
[2021-09-06] MEDS ORDERED: INSULIN REGULAR, HUMAN 100 UNIT/ML 10 ML VIAL IV ONE (23:00)
--- NOTE | 2021-09-06 23:11 | NUR ---
BIBPA FROM SNF TO ER BED 7. AAOX3. NOT IN RESP DISTRESS. BROUGHT IN FOR HYPERGLYCEMIA. PT WAS NOTED WITH ACCUCHECK OF 465.
[2021-09-06 23:53] LABS: ALBUMIN 3.3 g/dL (3.4-5.0); BILIRUBIN,DIRECT 0.5 mg/dL (0.0-0.2); BILIRUBIN,TOTAL 1.2 mg/dL (0.2-1.0); CREATININE 1.2 mg/dL (0.6-1.3); POTASSIUM 3.7 mmol/L (3.5-5.1); TOTAL PROTEIN, SERUM 7.3 g/dL (6.4-8.2)
[2021-09-07] VITALS (23 sets, daily range): BP systolic 90–154; BP diastolic 35–87
[2021-09-07 00:05] LABS: BILIRUBIN,URINE NEGATIVE (NEGATIVE); COLOR,URINE YELLOW (YELLOW); LEUKOCYTE ESTERASE ,URINE NEGATIVE (NEGATIVE); NITRITE, URINE NEGATIVE (NEGATIVE); PROTEIN,URINE NEGATIVE (NEGATIVE); UGLUCOSE >=1000 mg/dL (NEGATIVE); UROBILINOGEN,URINE 0.2 EU/dL (0.2)
--- NOTE | 2021-09-07 00:05 | NUR ---
PER LAB, BS 478; DR. ARACELI CHAPARRO AWARE
[2021-09-07 01:04] LABS: BACTERIA,URINE Rare /HPF (None Seen); RBC,URINE 0-2 /HPF (0-2); SQUAMOUS EPITHELIAL CELL,UR None Seen /HPF (None Seen); WBC,URINE NONE SEEN /HPF (0-3)
[2021-09-07 01:04] LABS: ABG BASE EXCESS -5.2 mmol/L; ABG PCO2 23.8 mmHg (35.0-45.0); ABG PH 7.469 (7.350-7.450); ABG PO2 74.7 mmHg (75.0-100.0); COHb 0.3 % (0.5-1.5); MetHb 0.3 % (0.0-1.5); O2Hb 93.9 % (94.0-97.0); SITE, ABG Right Brachial; VENT MODE, BG RA
[2021-09-07 01:48] LABS: CALCIUM, SERUM 9.1 mg/dL (8.5-10.1)
[2021-09-07] MEDS ORDERED: ONDANSETRON HCL/PF 4 MG/2 ML VIAL IVP PRN (03:30)
[2021-09-07] MEDS ORDERED: MAG HYDROX/AL HYDROX/SIMETH 30 ML UDC PO PRN (03:30)
--- NOTE | 2021-09-07 03:51 | NUR ---
ROOM 254 ICU
[2021-09-07] MEDS ORDERED: ENOXAPARIN SODIUM 40 MG/0.4 ML DISP.SYRIN SQ ONE (03:54)
[2021-09-07] MEDS ORDERED: INSULIN REGULAR, HUMAN 100 UNIT/ML 10 ML VIAL ONE (03:55)
[2021-09-07 04:15] LABS: BASOPHILS % (AUTO) 0.1 % (0.0-2.0); HEMATOCRIT 37 % (33-45); HEMOGLOBIN 11.8 g/dL (11.5-14.8); LYMPHOCYTES % (AUTO) 3.1 % (20.0-44.0); MEAN CORPUSCULAR HGB CONC 32 g/dl (31.0-36.0); MEAN CORPUSCULAR VOLUME 87 fL (82-100); MONOCYTES # (AUTO) 4.2 K/uL (0.1-1.30); MONOCYTES % (AUTO) 13.1 % (2.0-12.0); NEUTROPHILS # (AUTO) 27.1 K/uL (1.8-8.9); NEUTROPHILS % (AUTO) 83.7 % (43.0-81.0); PLATELET COUNT (AUTO) 276 K/uL (150-450); RED BLOOD CELL COUNT(AUTO) 4.18 MIL/uL (4.0-5.2)
--- NOTE | 2021-09-07 04:15 | NUR ---
INSULIN DRIP STARTED AT 5.3 ML/HR BS NOTED AT 353
[2021-09-07] MEDS: ENOXAPARIN SODIUM 40 MG/0.4 ML DISP.SYRIN SQ SCH (04:27)
[2021-09-07] MEDS: IV NS 0.9% 1,000 ML IV PRN ×3 (04:27→19:39)
--- NOTE | 2021-09-07 04:28 | NUR ---
Garrick darby in ED - 09/07/21 at 0429 by DAYRON INSULIN DRIP STARTED AT 5.3 ML/HR BS NOTED AT 353
--- NOTE | 2021-09-07 04:39 | NUR ---
REPORT GIVEN TO TIM ELLISON
[2021-09-07 04:55] LABS: WHITE BLOOD COUNT (AUTO) 32.4 K/uL (4.3-11.0)
--- NOTE | 2021-09-07 05:10 | NUR ---
PT TRANSFERRED UNDER ACLS
[2021-09-07 05:27] LABS: CALCIUM, SERUM 9.3 mg/dL (8.5-10.1); CREATININE 1.1 mg/dL (0.6-1.3); POTASSIUM 3.5 mmol/L (3.5-5.1)
[2021-09-07] MEDS: BLOOD SUGAR DIAGNOSTIC 1 EACH STRIP IN SCH ×5 (05:56→10:15)
[2021-09-07] MEDS ORDERED: INSULIN REGULAR, HUMAN 100 UNIT in IV NS 0.9% 99 ML IV PRN ×2 (06:00)
--- NOTE | 2021-09-07 06:55 | NUR ---
ANIMAL CONTROL LICENSING WORKER PER PT SHE SHAKES DUE TO PAST MEDICATIONS GIVEN TO HER INCLUDING HALDOL
--- NOTE | 2021-09-07 07:00 | NUR ---
RN NOTES RECEIVED PT ON BED, A/Ox1, ON RA, NO SOB NOTED, ON TELE ST HR IN 110'S, T=100.4 AXILLARY , PT IS NPO, ON INSULIN DRIP AT 3.39 U/HR , NS AT 125CC/HR RUNNING , IV SITES CLEAN ,DRY AND INTACT, SR UP x3, CALL LIGHT WITHIN EASY REACH, BED LOCKED AND IN LOWEST POSITION , CONTINUE TO MONITOR .
[2021-09-07] MEDS: ACETAMINOPHEN 325 MG TABLET PO PRN (07:23)
[2021-09-07] MEDS ORDERED: ALBUTEROL FS 2.5 MG/3 ML VIAL.NEB NEB PRN (07:30)
[2021-09-07] MEDS ORDERED: IBUPROFEN 400 MG TABLET PO PRN (07:30)
[2021-09-07] MEDS: METOPROLOL TARTRATE 25 MG TABLET PO SCH ×2 (08:19→16:08)
[2021-09-07] MEDS: LOSARTAN POTASSIUM 50 MG TABLET PO SCH (08:19)
[2021-09-07] MEDS: ASPIRIN 81 MG TAB.CHEW PO SCH (08:19)
[2021-09-07] MEDS: QUETIAPINE FUMARATE 25 MG TABLET PO SCH ×2 (08:20→20:01)
[2021-09-07] MEDS: FAMOTIDINE (20 MG) 20 MG TABLET PO SCH (08:20)
[2021-09-07] MEDS: ESCITALOPRAM OXALATE (10 MG) 10 MG TABLET PO SCH (08:20)
[2021-09-07] MEDS: POLYETHYLENE GLYCOL 3350 17 GM POWD.PACK PO SCH (08:20)
[2021-09-07] MEDS: LEVOTHYROXINE SODIUM 125 MCG TABLET PO SCH (08:20)
[2021-09-07] MEDS ORDERED: VANCOMYCIN 1.25 GM in IV D5W 250 ML IV ONE (09:00)
[2021-09-07 09:41] LABS: ALBUMIN 2.7 g/dL (3.4-5.0); POTASSIUM 3.1 mmol/L (3.5-5.1); TOTAL PROTEIN, SERUM 6.6 g/dL (6.4-8.2)
[2021-09-07] MEDS ORDERED: DEXTROSE 50%-WATER 50 ML DISP.SYRIN IV PRN (10:30)
[2021-09-07] MEDS: POTASSIUM CL. PREMIX PERIPHER. 50 ML IV SCH ×4 (10:45→14:31)
--- NOTE | 2021-09-07 11:00 | NUR ---
RN NOTES CALL RECEIVED FROM SNF THAT PT FELL DERREK AT SNF BEFORE SHE GETS ADMITTED TO THE HOSPITAL , DR PATEL NOTIFIED , NEW ORDER RECEIVED .CONTINUE TO MONITOR.
[2021-09-07 11:04] LABS: BAND % (MANUAL) 13 % (0.0-5.0); LYMPHOCYTES % (MANUAL) 4 % (16-48); METAMYELOCYTES % 1 % (0-0); MONOCYTES % (MANUAL) 11 % (0-11.0); MYELOCYTES % 1 % (0-0); NEUTROPHILS % (MANUAL) 70 (42-76)
[2021-09-07] MEDS: PIPERACILLIN /TAZOBACTAM 2.25 G in IV D5W 50 ML IV SCH ×3 (11:31→23:00)
--- NOTE | 2021-09-07 12:00 | NUR ---
RN NOTES PT CONFUSED AT TIMES AND AGITATED, REFUSED MEDS , TEACHING REINFORCED.
[2021-09-07] MEDS: INSULIN GLARGINE, 100 UNIT/ML CARTRIDGE SQ SCH ×2 (12:14→21:19)
[2021-09-07] MEDS: INSULIN REGULAR, HUMAN 100 UNIT/ML 3 ML VIAL SQ PRN ×2 (12:15→17:29)
[2021-09-07] MEDS: BLOOD SUGAR DIAGNOSTIC 1 EACH STRIP VI SCH ×3 (12:16→21:30)
[2021-09-07] MEDS: GABAPENTIN 100 MG CAPSULE PO SCH ×2 (12:18→20:01)
--- NOTE | 2021-09-07 15:00 | NUR ---
RN NOTES PT WANTS TO GET OUT OF THE BED, CONFUSED TO PLACE , REORIENTED TO ROOM AND SURROUNDING , CONTINUE TO MONITOR .
[2021-09-07] MEDS: ATORVASTATIN 10 MG TABLET PO SCH (17:17)
[2021-09-07] MEDS: clonazePAM 0.5 MG TABLET PO PRN ×2 (17:39→21:45)
--- NOTE | 2021-09-07 18:00 | NUR ---
RN NOTES NO SIGNIFICANT CHANGES NOTED ON THIS SHIFT, PT REFUSED MEDS AT TIMES , ON TELE SR , KATE DRINING TO GRAVITY, IVF AT 125CC/HR RUNNING, WILL ENDORSE TO PATIENT SERVICES ASSISTANT NURSE FOR CONTINUITY OF CARE .
--- NOTE | 2021-09-07 18:15 | NUR ---
RN NOTES CALL MADE TO LAB x2 REGARDING BMP RESULTS ,
[2021-09-07 18:31] LABS: ALANINE AMINOTRANSFERASE 37 U/L (12-78); ALKALINE PHOSPHATASE 113 U/L (46-116); ASPARTATE AMINOTRANSFERASE 36 U/L (15-37); BILIRUBIN,TOTAL 1.5 mg/dL (0.2-1.0); CREATININE 1.3 mg/dL (0.6-1.3); GLUCOSE 313 mg/dL (74-106); UREA NITROGEN, BLOOD 31 mg/dL (7-18)
[2021-09-07 18:58] LABS: CALCIUM, SERUM 8.8 mg/dL (8.5-10.1); CARBON DIOXIDE 25 mmol/L (21-32); CHLORIDE 95 mmol/L (98-107); POTASSIUM 3.9 mmol/L (3.5-5.1); SODIUM SERUM 128 mmol/L (136-145)
--- NOTE | 2021-09-07 19:15 | NUR ---
RN URGENT CARE FOUND PT PULLING ECG LEADS; REORIENTED PT; PT CONFUSED AND NOT PRECEPTIVE TO SITUATION
[2021-09-07] MEDS: VANCOMYCIN 1 GM in IV D5W 250 ML IV SCH (20:00)
--- NOTE | 2021-09-07 20:00 | NUR ---
SHIPPING PROCESSOR PT A/O x4; COMPLIANT AT THIS TIME
[2021-09-07] MEDS ORDERED: IV NS 0.9% 1,000 ML IV ONE (21:00)
[2021-09-07] MEDS: *INSULIN REGULAR(HUMULIN R)HUM 100 UNIT/ML VIAL SQ PRN (21:19)
--- NOTE | 2021-09-07 21:36 | NUR ---
SUPERVISOR PUTTY AND CALUKING PT NOTED WITH MOMENTS OF CONFUSION WELL REMOVING ECG LEADS AND PULLING ON IV TUBING. ATTEMPT TO REORIENT PT HOWEVER PT DISPLAYS AGGRESSIVE DEMEANOR AND RESPONDS INAPPROPRIATELY.
--- NOTE | 2021-09-07 21:46 | NUR ---
SAT MATH TUTOR PT NOTED TO BE AGITATED PULLING ON ECG LINES AND IVS; AGGRESSIVE WHEN NURSING ATTEMPTS TO REAPPLY ECG LEADS. PT TALKING ABOUT PACKAGES SHE IS EXPECTING AT [facility]. REDIRECTED PT THAT SHE IS AT [facility]. PT DOES NOT LISTEN CONTINUES THINKING SHE IS ELSEWHERE AND DOES NOT TO HAVE "SO MANY THINGS ATTACHED" HER. Addendum: 09/07/21 at 2149 by SCOT GOMEZ RN KLONOPIN 0.5 MG PO GIVEN
[2021-09-07 21:50] LABS: BASOPHILS # (AUTO) 0.1 K/uL (0.0-0.2); BASOPHILS % (AUTO) 0.3 % (0.0-2.0); HEMATOCRIT 32 % (33-45); HEMOGLOBIN 10.3 g/dL (11.5-14.8); LYMPHOCYTES # (AUTO) 1.1 K/uL (0.8-4.8); LYMPHOCYTES % (AUTO) 3.5 % (20.0-44.0); MEAN CORPUSCULAR HGB CONC 32 g/dl (31.0-36.0); MEAN CORPUSCULAR VOLUME 87 fL (82-100); MONOCYTES # (AUTO) 3.9 K/uL (0.1-1.30); NEUTROPHILS # (AUTO) 25.2 K/uL (1.8-8.9); NEUTROPHILS % (AUTO) 83.2 % (43.0-81.0); PLATELET COUNT (AUTO) 247 K/uL (150-450); RED BLOOD CELL COUNT(AUTO) 3.64 MIL/uL (4.0-5.2)
[2021-09-07 22:00] LABS: WHITE BLOOD COUNT (AUTO) 30.3 K/uL (4.3-11.0)
--- NOTE | 2021-09-07 22:00 | NUR ---
TARPER PT ATTEMPTED TO GET OUT OF BED DISPLAYING AGGRESSIVE DEMEANOR; SOFT WRIST RESTRAINTS PLACED AT THIS TIME
[2021-09-07 22:54] LABS: BAND % (MANUAL) 31 % (0.0-5.0); LYMPHOCYTES % (MANUAL) 7 % (16-48); METAMYELOCYTES % 1 % (0-0); MONOCYTES % (MANUAL) 4 % (0-11.0); MYELOCYTES % 1 % (0-0); NEUTROPHILS % (MANUAL) 56 (42-76)
[2021-09-08] VITALS (25 sets, daily range): BP systolic 87–128; BP diastolic 33–88
[2021-09-08] MEDS: ACETAMINOPHEN 325 MG TABLET PO PRN ×2 (04:01→20:51)
[2021-09-08] MEDS: GABAPENTIN 100 MG CAPSULE PO SCH ×3 (04:01→20:51)
[2021-09-08] MEDS: PIPERACILLIN /TAZOBACTAM 2.25 G in IV D5W 50 ML IV SCH ×4 (05:15→23:53)
--- NOTE | 2021-09-08 05:30 | NUR ---
RED HAT OPEN STACK ADMINISTRATOR PT SLEEPING AT THIS TIME; BSWR REMOVED AT THIS TIME
[2021-09-08 06:02] LABS: BASOPHILS # (AUTO) 0.1 K/uL (0.0-0.2); BASOPHILS % (AUTO) 0.2 % (0.0-2.0); HEMATOCRIT 30 % (33-45); HEMOGLOBIN 9.9 g/dL (11.5-14.8); LYMPHOCYTES # (AUTO) 1.4 K/uL (0.8-4.8); LYMPHOCYTES % (AUTO) 4.7 % (20.0-44.0); MEAN CORPUSCULAR HGB CONC 33 g/dl (31.0-36.0); MEAN CORPUSCULAR VOLUME 86 fL (82-100); MONOCYTES # (AUTO) 3.9 K/uL (0.1-1.30); MONOCYTES % (AUTO) 13.6 % (2.0-12.0); NEUTROPHILS # (AUTO) 23.4 K/uL (1.8-8.9); NEUTROPHILS % (AUTO) 81.5 % (43.0-81.0); PLATELET COUNT (AUTO) 239 K/uL (150-450); RED BLOOD CELL COUNT(AUTO) 3.47 MIL/uL (4.0-5.2); WHITE BLOOD COUNT (AUTO) 28.8 K/uL (4.3-11.0)
[2021-09-08 06:57] LABS: MAGNESIUM 1.3 mg/dL (1.8-2.4); PHOSPHORUS 2.2 mg/dL (2.5-4.9)
[2021-09-08 07:17] LABS: CARBON DIOXIDE 18 mmol/L (21-32); CHLORIDE 105 mmol/L (98-107); GLUCOSE 117 mg/dL (74-106); POTASSIUM 3.6 mmol/L (3.5-5.1); SODIUM SERUM 134 mmol/L (136-145); UREA NITROGEN, BLOOD 21 mg/dL (7-18)
[2021-09-08] MEDS: BLOOD SUGAR DIAGNOSTIC 1 EACH STRIP VI SCH ×4 (07:55→22:01)
[2021-09-08] MEDS: POLYETHYLENE GLYCOL 3350 17 GM POWD.PACK PO SCH (08:46)
[2021-09-08] MEDS: QUETIAPINE FUMARATE 25 MG TABLET PO SCH ×2 (08:46→20:51)
[2021-09-08] MEDS: LEVOTHYROXINE SODIUM 125 MCG TABLET PO SCH (08:46)
[2021-09-08] MEDS: FAMOTIDINE (20 MG) 20 MG TABLET PO SCH (08:47)
[2021-09-08] MEDS: ESCITALOPRAM OXALATE (10 MG) 10 MG TABLET PO SCH (08:47)
[2021-09-08] MEDS: ENOXAPARIN SODIUM 40 MG/0.4 ML DISP.SYRIN SQ SCH (08:50)
[2021-09-08] MEDS: ASPIRIN 81 MG TAB.CHEW PO SCH (08:50)
[2021-09-08] MEDS: LOSARTAN POTASSIUM 50 MG TABLET PO SCH (08:51)
[2021-09-08] MEDS: METOPROLOL TARTRATE 25 MG TABLET PO SCH ×2 (08:51→17:54)
[2021-09-08] MEDS: INSULIN GLARGINE, 100 UNIT/ML CARTRIDGE SQ SCH ×2 (08:59→18:11)
[2021-09-08] MEDS: IV NS 0.9% 1,000 ML IV PRN (09:00)
--- NOTE | 2021-09-08 09:30 | NUR ---
RN NOTES PATIENT GET INSERTED MIDLINE ON EDGAR INTACT, PATIENT CONFUSED, COMBATIVE, HITTING, DUE MEDICATION ADMINISTERED CRUSHED MIXED WITH APPLE SAUCE, KEEP HOB ELEVATED FOR ASPIRATION PRECAUTION, INFUSING NS @125 ML/HR INTACT.
--- NOTE | 2021-09-08 09:40 | NUR ---
RN NOTES SEEN HOSPITALIST PATIENT WILL DOWNGRADE TO THE TELE UNIT, WAITING FOR AVAILABLE BED, ALSO GET TO NEW ORDER TITRATED IV NS TO THE 80ML/HR, ORDER TAKEN AND CARRIED OUT.
[2021-09-08] MEDS: MAGNESIUM OXIDE 400 MG TABLET PO SCH ×2 (10:54→12:46)
[2021-09-08 11:18] LABS: CALCIUM, SERUM 8.6 mg/dL (8.5-10.1)
[2021-09-08 11:25] LABS: CALCIUM, SERUM 8.2 mg/dL (8.5-10.1); CARBON DIOXIDE 20 mmol/L (21-32); CHLORIDE 105 mmol/L (98-107); GLUCOSE 155 mg/dL (74-106); POTASSIUM 3.4 mmol/L (3.5-5.1); SODIUM SERUM 136 mmol/L (136-145); UREA NITROGEN, BLOOD 24 mg/dL (7-18)
[2021-09-08 11:32] LABS: ALANINE AMINOTRANSFERASE 27 U/L (12-78); ALBUMIN 1.9 g/dL (3.4-5.0); ASPARTATE AMINOTRANSFERASE 27 U/L (15-37); BILIRUBIN,TOTAL 0.8 mg/dL (0.2-1.0); TOTAL PROTEIN, SERUM 5.3 g/dL (6.4-8.2)
[2021-09-08 11:32] LABS: ALANINE AMINOTRANSFERASE 31 U/L (12-78); ALBUMIN 2.2 g/dL (3.4-5.0); ASPARTATE AMINOTRANSFERASE 32 U/L (15-37); TOTAL PROTEIN, SERUM 5.8 g/dL (6.4-8.2)
[2021-09-08] MEDS: INSULIN REGULAR, HUMAN 100 UNIT/ML 3 ML VIAL SQ PRN ×2 (12:44→18:16)
--- NOTE | 2021-09-08 13:12 | NUR ---
RN NOTES GET CONSENT SIGN WITH TO WITH PATIENT'S POWER 0F ATTORNEYNAME ELIN ALANIS FOR CT OF ABDOMEN, AND PELVIC. CO SIGN CO WORKER YVETTE DUMONT.
[2021-09-08] MEDS ORDERED: POTASSIUM CHLORIDE 20 MEQ TAB.PRT.SR PO SCH (13:30)
[2021-09-08] MEDS ORDERED: IOHEXOL-350 100 ML VIAL IV ONE (13:41)
[2021-09-08] MEDS ORDERED: IV NS 0.9% 250 ML IV ONE (13:41)
[2021-09-08] MEDS ORDERED: CT SWABBABLE VALVE TRANS SET 1 EA INFUS.SET MC ONE (13:41)
--- NOTE | 2021-09-08 15:50 | NUR ---
RN NOTES TRANSFERRED PATIENT STABLE CONDITION TO THE MED/SURGE UNIT AT THOIS TIME . PATIENT HAS NO ACUTE RESPIRATORY DISTRESS. PATIENT CONFUSED, AND LAST MINUTE TRANSFERRING , REMOVED MIDLINE FROM EDGAR. PUT PATIENT ON RESTRAIN SOFT BILATERAL WRISTS. BEDSIDE REPORT GIVEN RN JSOEPH MONTE.
[2021-09-08] MEDS ORDERED: K PHOS NEUTRAL 250 MG TABLET PO ONE (16:00)
--- NOTE | 2021-09-08 16:00 | NUR ---
ms rn receive a new transfer from icu, 81 year old female, alert,oriented x2,not in any form of distress, respirations even and unlabored,no sob noted, noble to gravity w/ yellowish urine output, bilateral soft wrist restraint ,will monitor patient.
[2021-09-08] MEDS: ATORVASTATIN 10 MG TABLET PO SCH (17:53)
--- NOTE | 2021-09-08 18:00 | NUR ---
ms r due meds given,tolerated well.
--- NOTE | 2021-09-08 19:00 | NUR ---
ms rn on bed, all needs attended.
--- NOTE | 2021-09-08 19:52 | NUR ---
RN NOTES: RECEIVED AWAKE ON BED, A/OX1 TO SELF ONLY, ON RA, ORIENTED TO UNIT AND STAFF, WITH IV CANNULA-PERIPHERAL LIEN, ON THE LEFT HAND IVF ON NS AT 80ML/HR ON GOING, PATIENT IS FROM ICU PER RN/AM SHIFT AND ON BILATERAL SOFT RESTRAINTS, PER ENDORSEMENT SHE IS TRYING TO PULL OUT HER IV; HER MIDLINE WAS PULLED OUT FROM ICU,ON BLOOD GLUCOSE MONITOR, Q ACHS, ALL ELECTROLYTES REPLACED FROM ICU INCLUDING MG, PHOS, AND K; CT ABDOMEN DONE AND PSYCH CONSULT, PATIENT HAS PERIODS OF AGITATION ESPECIALLY DURING ADL AND REPOSITIONING. -ORIENTED TO UNIT AND STAFF, FALL,SAFETY AND ASPIRATION PRECAUTION OBSERVED, Addendum: 09/08/21 at 2024 by SCOTT JOHNSON RN ADDED NOTES: -PER ENDORSEMENT PATIENT IS ON MED SURG NOT ON TELE ANYMORE.
[2021-09-08] MEDS: VANCOMYCIN 1 GM in IV D5W 250 ML IV SCH (20:51)
--- NOTE | 2021-09-08 21:13 | NUR ---
RN NOTES: SHE GRIMACE AND SHOUT WHEN YOU REPOSITIONED HER, GIVEN ORAL MEDS WITH PRN FOR PAIN, ALSO HER IV/ATB, EXPLAINED TO HER WILL GIVE HER ORAL MEDS WITH PUDDINGS AND WE WILL REPOSITIONED HER, RN AND BRASS POLISHER NEEDS TO EXPLAIN IN DETAILED ALL THE THINGS YOU WILL DO TO HIM THEN SHE WILL COOPERATE AND SHE WILL NOT SHOUT.
[2021-09-08] MEDS: *INSULIN REGULAR(HUMULIN R)HUM 100 UNIT/ML VIAL SQ PRN (22:03)
--- NOTE | 2021-09-08 22:18 | NUR ---
RN NOTES: SHE AGREED FOR BLOOD SUGAR CHECK-219, INSULIN PER SCALE WAS 4 UNITS, WHEN RN WAS ABOUT TO GIVE AFTER EXPLAINING TO HER , SHE STARTED TO SHOUT AND BECOME RESTLESS, SHE IS PINCHING THE RN HAND AND SAYING "219 IS NORMAL, I DONT NEED ANY INSULIN, GET OUT", DESPITE EXPLANATION SHE DID NOT LISTEN SHE KICK HER LEGS,WITNESSED BY ANOTHER RN/FELECIA, INSULIN WAS NOT GIVEN. Addendum: 09/08/21 at 2229 by SCOTT JOHNSON RN ADDED NOTES: CN NOTIFIED.
[2021-09-09] MEDS: IV NS 0.9% 1,000 ML IV PRN (02:31)
--- NOTE | 2021-09-09 03:18 | NUR ---
RN NOTES: ASLEEP AT SHORT INTERVALS, WHENEVER RN STARTS TO CHECK HER RESTRAIN AND CHECK HER IV SITE SHE WAKES UP AND SAID "DONT TOUCH ME". ON CLOSE MONITOR, KEPT CALL LIGHT WITHIN EASY REACH.
[2021-09-09] MEDS: GABAPENTIN 100 MG CAPSULE PO SCH ×3 (05:01→23:28)
[2021-09-09] MEDS: PIPERACILLIN /TAZOBACTAM 2.25 G in IV D5W 50 ML IV SCH ×3 (05:01→17:15)
--- NOTE | 2021-09-09 05:12 | NUR ---
RN NOTES: -AWAKEN TO GIVE HER ORAL MEDS MIXED WITH PUDDING, SHE OPEN HER MOUTH, SHE WAS ABLE TO TAKE ALMOST HALF OF THE MEDICINE, WHEN SHE BEGONE TO TASTE ITS BITTER SHE STARTED TO SPIT IT OUT, THEN SHOUT "GET OUT OF HERE". IV/ATB GIVEN. Addendum: 09/09/21 at 0515 by SCOTT JOHNSON RN ADDED NOTES: SHE GO BACK TO SLEEP AGAIN.
--- NOTE | 2021-09-09 05:50 | NUR ---
RN NOTES: NOTICED PATIENT WAS CRYING IN PAIN DURING THE TIME MORNING CARE ESPECIALLY WHEN SHE WAS REPOSITIONED ON THE LEFT SIDE, NOTICED HER LLE IS A LITTLE BIT BIGGER THAN THE RLE, SHE HAS MILD SWELLING ON THE LEFT KNEE, OFFERED PAIN MEDICATION, SHE AGREED, WHEN RN WAS ABOUT TO GIVE HER SHE HEARD THE BANANA EXPERT TALKING TO HER ROOM MATE THE PATIENT IN BED 1 REGARDING BLOOD PRESSURE AND SHE THOUGHT SHE WAS GIVEN THE WRONG MEDICATION, RN WAS EXPLAINING TO HER AND SHOWING HER THE MEDICATION IS NOT YET OPEN, SHE BEGONE TO SHOUT VERY LOUDLY AND SAYING "I DONT WANT TO TAKE ANY OF YOUR MEDICATION, I DONT WANT, YOU ARE ALL LYING TO ME, I DONT WANNA HERE BECAUSE YOU GIVE A WRONG PILL". THEN SHE SAID "GET OUT". -MEDICATION WAS RETURNED BACK TO OMNICEL, NOT YET OPEN.
--- NOTE | 2021-09-09 06:00 | NUR ---
RN NOTES: WILL ENDORSED TO MORNING SHIFT TO LET [facility] DOCTOR ASSESSED HER LLE, SWELLING IS PROMINENT AND SHE HAS MODERATE-SEVERE PAIN UPON REPOSITIONING SHE MIGHT NEED X-RAY FOR FURTHER EVALUATION.CHARGE NURSE AWARE.
[2021-09-09] MEDS: BLOOD SUGAR DIAGNOSTIC 1 EACH STRIP VI SCH ×4 (06:28→23:52)
--- NOTE | 2021-09-09 06:53 | NUR ---
RN NOTES: SHE TOOK A NAP IN BETWEEN, FBS-131, SHE REFUSED FOR HER INSULIN , SHE SAID 'IM OK I DONT NEED INSULIN, MY RESULT IS NORMAL",KEPT MONITORED, CONTINUE CAREFUL HANDLING ESPECIALLY DURING REPOSITIONING. ENDORSED FOR CONTINUITY OF CARE.
[2021-09-09 06:59] LABS: BASOPHILS % (AUTO) 0.1 % (0.0-2.0); EOSINOPHILS % (AUTO) 0.2 % (0.0-6.0); HEMATOCRIT 30 % (33-45); LYMPHOCYTES # (AUTO) 1.4 K/uL (0.8-4.8); MEAN CORPUSCULAR HGB CONC 33 g/dl (31.0-36.0); MEAN CORPUSCULAR VOLUME 87 fL (82-100); MONOCYTES # (AUTO) 2.7 K/uL (0.1-1.30); MONOCYTES % (AUTO) 9.5 % (2.0-12.0); NEUTROPHILS # (AUTO) 24.2 K/uL (1.8-8.9); NEUTROPHILS % (AUTO) 85.2 % (43.0-81.0); PLATELET COUNT (AUTO) 303 K/uL (150-450); RED BLOOD CELL COUNT(AUTO) 3.51 MIL/uL (4.0-5.2); WHITE BLOOD COUNT (AUTO) 28.4 K/uL (4.3-11.0)
[2021-09-09] MEDS: LEVOTHYROXINE SODIUM 125 MCG TABLET PO SCH (07:29)
--- NOTE | 2021-09-09 07:39 | NUR ---
MS RN OPENING NOTE RECEIVED PATIENT ASLEEP IN BED, AROUSABLE BY NAME TO A/O X 1-2 (ORIENTED TO NAME AND LOCATION) TOLERATING WELL ON ROOM AIR WITH NO S/S OF RESPIRATORY DISTRESS. BREATHING EVEN AND UNLABORED WITH NO COMPLAINTS OF PAIN OR DISCOMFORT AT THIS TIME. LEFT WRIST 22G CLEAN, INTACT, AND FLUSHING WELL WITH NS AT 80 ML/HR. PATIENT ON BILATERAL SOFT WRIST RESTRAINTS WITH CIRCULATION, MOTOR FUNCTION, AND SENSATION INTACT IN BILATERAL HANDS. SAFETY MEASURES IN PLACE: BED IN LOWEST LOCKED POSITION, SIDE RAILS UP X 2, CALL LIGHT WITHIN REACH. WILL CONTINUE TO MONITOR.
[2021-09-09 08:00] VITALS: BP 140/71
[2021-09-09 08:04] LABS: CALCIUM, SERUM 8.5 mg/dL (8.5-10.1); CREATININE 0.9 mg/dL (0.6-1.3); MAGNESIUM 2.1 mg/dL (1.8-2.4); PHOSPHORUS 2.8 mg/dL (2.5-4.9); POTASSIUM 3.6 mmol/L (3.5-5.1)
[2021-09-09] MEDS: ENOXAPARIN SODIUM 40 MG/0.4 ML DISP.SYRIN SQ SCH ×2 (09:00→09:21)
[2021-09-09] MEDS: ESCITALOPRAM OXALATE (10 MG) 10 MG TABLET PO SCH ×2 (09:00→09:21)
[2021-09-09] MEDS: ASPIRIN 81 MG TAB.CHEW PO SCH ×2 (09:00→09:22)
[2021-09-09] MEDS: LOSARTAN POTASSIUM 50 MG TABLET PO SCH ×2 (09:00→09:22)
[2021-09-09] MEDS: FAMOTIDINE (20 MG) 20 MG TABLET PO SCH ×2 (09:00→09:22)
[2021-09-09] MEDS: METOPROLOL TARTRATE 25 MG TABLET PO SCH ×3 (09:00→17:00)
[2021-09-09] MEDS: POLYETHYLENE GLYCOL 3350 17 GM POWD.PACK PO SCH ×2 (09:00→09:21)
[2021-09-09] MEDS: INSULIN GLARGINE, 100 UNIT/ML CARTRIDGE SQ SCH ×3 (09:00→17:00)
[2021-09-09] MEDS: QUETIAPINE FUMARATE 25 MG TABLET PO SCH ×3 (09:00→23:28)
[2021-09-09] MEDS: *INSULIN REGULAR(HUMULIN R)HUM 100 UNIT/ML VIAL SQ PRN (11:36)
--- NOTE | 2021-09-09 13:47 | NUR ---
MS RN NOTE SPOKE WITH HAM FROM LAB WHO STATED PATIENT URINE CULTURE IS POSITIVE FOR GRAM POSITIVE COCCI CHAINS IN BOTH AEROBIC AND ANAEROBIC CULTURES. PRIMARY MD MADE AWARE.
[2021-09-09 16:00] VITALS: BP 135/65
[2021-09-09] MEDS: ATORVASTATIN 10 MG TABLET PO SCH (17:23)
--- NOTE | 2021-09-09 18:10 | NUR ---
MS RN NOTE SPOKE WITH JAY FROM PHARMACY WHO CONFIRMED PATIENT MAY RECEIVE HER FIRST VANCOMYCIN DOSE THIS EVENING PRIOR TO DRAWING THE TROUGH LEVELS TOMORROW MORNING.
--- NOTE | 2021-09-09 18:11 | NUR ---
MS RN NOTE PATIENT WITH 500 ML TOTAL URINE OUTPUT DURING SHIFT.
--- NOTE | 2021-09-09 18:19 | NUR ---
MS RN CLOSING NOTE PATIENT LAYING ASLEEP IN BED, AROUSABLE BY NAME TO A/O X 3. PATIENT TOLERATING WELL ON ROOM AIR WITH NO S/S OF RESPIRATORY DISTRESS. BREATHING EVEN AND UNLABORED WITH NO COMPLAINTS OF PAIN OR DISCOMFORT AT THIS TIME. LEFT WRIST 22G CLEAN, INTACT, AND FLUSHING WELL WITH NS @ 80 ML/HR. LOVE CATHETER IN PLACE DRAINING CLEAR YELLOW URINE TO GRAVITY. PATIENT WRIST RESTRAINTS WERE REMOVED THIS MORNING AND REMAINED OFF OF PATIENT WITH NO SIGNS OF AGGRESSION OR ATTEMPTS TO PULL OUT IV LINES DURING SHIFT. ALL NEEDS MET. SAFETY MEASURES IN PLACE: BED IN LOWEST LOCKED POSITION, SIDE RAILS UP X 2, CALL LIGHT WITHIN REACH. WILL ENDORSE TO JANITOR HELPER FOR MELL.
--- NOTE | 2021-09-09 19:15 | NUR ---
RN opening notes Pt is resting in bed comfortably. Pt is alert and orienetedX2. On room air. No SOB. No S/s of distress noted. IV site at R arm # 22 is clean, intact and infusing well NS @ 80 ml/hr. Montiel cath is in placed and draining yellow urine. Safety precautions is maintained all the time. Bed at low position, brakes locked, side rails upX3, hob elevated and call light is within reach. Will continue to monitor.
[2021-09-09 20:00] VITALS: BP 124/74
[2021-09-09 20:19] VITALS: BP 124/74
[2021-09-09] MEDS: VANCOMYCIN 1 GM in IV D5W 250 ML IV SCH (23:16)
[2021-09-09] MEDS: ACETAMINOPHEN 325 MG TABLET PO PRN (23:43)
--- NOTE | 2021-09-09 23:43 | NUR ---
RN notes Pt is complaining of pain on left leg and requesting tylenol only. administered tylenol 650mg/po/prn as ordered. Will continue to monitor.
[2021-09-09] MEDS: INSULIN REGULAR, HUMAN 100 UNIT/ML 3 ML VIAL SQ PRN (23:52)
--- NOTE | 2021-09-09 23:57 | NUR ---
RN notes Pt's blood sugar HS is 140. Pt refused coverage. Pt stated "No Insulin!!" explained risks and benefits. Pt keep refusing. Will continue to monitor.
[2021-09-10] MEDS: PIPERACILLIN /TAZOBACTAM 2.25 G in IV D5W 50 ML IV SCH ×5 (00:46→17:54)
[2021-09-10] MEDS: GABAPENTIN 100 MG CAPSULE PO SCH ×3 (05:00→21:00)
--- NOTE | 2021-09-10 06:50 | NUR ---
RN closing notes Pt is resting in bed comfortably. Pt is alert and orientedX2. On room air. No SOB. No S/s of distress noted. IV site at R arm # 22 is clean, intact and infusing well NS @ 80 ml/hr. Montiel cath is in placed and draining yellow urine 600 ml. Kept Pt clean, dry and comfortable. Safety precautions is maintained. Bed at low position, brakes locked, side rails upX3, hob elevated and call light is within reach. Will endorse to am nurse for MELL.
--- NOTE | 2021-09-10 07:41 | NUR ---
MS RN OPENING NOTE RECEIVED PATIENT ASLEEP IN BED.TOLERATING WELL ON ROOM AIR WITH NO S/S OF RESPIRATORY DISTRESS. BREATHING EVEN AND UNLABORED.LEFT WRIST 22G CLEAN, INTACT, AND FLUSHING WELL WITH NS AT 80 ML/HR. PATIENT ON BILATERAL SOFT WRIST RESTRAINTS WITH CIRCULATION, MOTOR FUNCTION, AND SENSATION INTACT IN BILATERAL HANDS. SAFETY MEASURES IN PLACE: BED IN LOWEST LOCKED POSITION, SIDE RAILS UP X 2, CALL LIGHT WITHIN REACH. WILL CONTINUE TO MONITOR.
[2021-09-10] MEDS: LEVOTHYROXINE SODIUM 125 MCG TABLET PO SCH (07:52)
[2021-09-10] MEDS: BLOOD SUGAR DIAGNOSTIC 1 EACH STRIP VI SCH ×4 (08:00→22:00)
[2021-09-10] MEDS: INSULIN REGULAR, HUMAN 100 UNIT/ML 3 ML VIAL SQ PRN ×3 (08:08→16:53)
[2021-09-10 08:29] VITALS: BP 97/54
[2021-09-10 08:50] LABS: ALBUMIN 1.7 g/dL (3.4-5.0); CALCIUM, SERUM 8.2 mg/dL (8.5-10.1); CREATININE 0.9 mg/dL (0.6-1.3); POTASSIUM 3.8 mmol/L (3.5-5.1); TOTAL PROTEIN, SERUM 5.8 g/dL (6.4-8.2)
[2021-09-10] MEDS: METOPROLOL TARTRATE 25 MG TABLET PO SCH ×2 (09:00→16:25)
[2021-09-10] MEDS: LOSARTAN POTASSIUM 50 MG TABLET PO SCH (09:00)
[2021-09-10] MEDS: INSULIN GLARGINE, 100 UNIT/ML CARTRIDGE SQ SCH ×2 (09:00→16:40)
[2021-09-10] MEDS: ENOXAPARIN SODIUM 40 MG/0.4 ML DISP.SYRIN SQ SCH (09:01)
--- NOTE | 2021-09-10 09:07 | NUR ---
RN NOTE PT REFUSED ENOXAPARIN SODIUM 40MG/0.4ML ALSO POLYETHYLENE GLYCOL POWDER FOR ORAL DARIUS'N.HYPERTENSION MEDS WAS HOLD DUE TO DECREASED BLOOD PRESSURE MD AWARE.PT REMAINE STABLE NO CHANGES.
[2021-09-10 09:16] LABS: BASOPHILS % (AUTO) 0.1 % (0.0-2.0); EOSINOPHILS % (AUTO) 0.4 % (0.0-6.0); HEMATOCRIT 33 % (33-45); HEMOGLOBIN 10.9 g/dL (11.5-14.8); LYMPHOCYTES # (AUTO) 1.5 K/uL (0.8-4.8); LYMPHOCYTES % (AUTO) 4.8 % (20.0-44.0); MEAN CORPUSCULAR HGB CONC 33 g/dl (31.0-36.0); MEAN CORPUSCULAR VOLUME 85 fL (82-100); MONOCYTES # (AUTO) 3.2 K/uL (0.1-1.30); MONOCYTES % (AUTO) 9.9 % (2.0-12.0); NEUTROPHILS # (AUTO) 27.1 K/uL (1.8-8.9); NEUTROPHILS % (AUTO) 84.8 % (43.0-81.0); PLATELET COUNT (AUTO) 422 K/uL (150-450); RED BLOOD CELL COUNT(AUTO) 3.91 MIL/uL (4.0-5.2)
[2021-09-10] MEDS: QUETIAPINE FUMARATE 25 MG TABLET PO SCH ×2 (09:39→21:00)
[2021-09-10] MEDS: POLYETHYLENE GLYCOL 3350 17 GM POWD.PACK PO SCH (09:39)
[2021-09-10] MEDS: FAMOTIDINE (20 MG) 20 MG TABLET PO SCH (09:39)
[2021-09-10] MEDS: ASPIRIN 81 MG TAB.CHEW PO SCH (09:39)
[2021-09-10] MEDS: ESCITALOPRAM OXALATE (10 MG) 10 MG TABLET PO SCH (09:39)
[2021-09-10] MEDS ORDERED: IV NS 0.9% 250 ML IV ONE (09:42)
[2021-09-10] MEDS ORDERED: CT SWABBABLE VALVE TRANS SET 1 EA INFUS.SET MC ONE (09:42)
[2021-09-10] MEDS ORDERED: IOHEXOL-300 100 ML VIAL IV ONE (09:42)
--- NOTE | 2021-09-10 10:00 | NUR ---
RN NOTE NOTIFIED OF CRITICAL LAB VALUE OF 33, NNO AT THIS TIME
[2021-09-10 10:44] LABS: LYMPHOCYTES % (MANUAL) 6 % (16-48); MONOCYTES % (MANUAL) 6 % (0-11.0); NEUTROPHILS % (MANUAL) 88 (42-76)
[2021-09-10 11:08] LABS: THYROID STIMULATING HORMONE 2.276 uIU/mL (0.358-3.74)
[2021-09-10 16:02] VITALS: BP 127/71
--- NOTE | 2021-09-10 16:53 | NUR ---
RN NOTE PATIENT NOTED WITH 347 SUGAR, PATIENT ADAMANTLY REFUSING INSULIN. EXPLAINED RISK AND BENEFITS X2, STILL REFUSED, MD AWARE
[2021-09-10] MEDS: ATORVASTATIN 10 MG TABLET PO SCH (17:23)
--- NOTE | 2021-09-10 17:55 | NUR ---
PT REFUSED ZOSYN IV 1800.EXPLAINED IN BENEFITS X3 BUT PT STILL REFUSED.CHARGE NURSE MADE AWARE
--- NOTE | 2021-09-10 18:31 | NUR ---
MS RN CLOSING NOTE PATIENT IN BED AOX3.PATIENT ON ROOM AIR TOLERATED WELL. NO S/S OF RESPIRATORY DISTRESS. BREATHING EVEN AND UNLABORED WITH NO COMPLAINTS OF PAIN OR DISCOMFORT AT THIS TIME. RFA 22G PATENT/ INTACT .PT REFUSED TURNING/REPOSITION.EXPLAINED IN BENEFITS.LOVE CATHETER IN PLACE DRAINING CLEAR YELLOW URINE TO GRAVITY. ALL NEEDS MET. SAFETY MEASURES IN PLACE: BED IN LOWEST LOCKED POSITION, SIDE RAILS UP X 2, CALL LIGHT WITHIN REACH. WILL ENDORSE TO AUTOMOTIVE ENGINEER.
--- NOTE | 2021-09-10 19:43 | NUR ---
MS RN OPENING RECEIVED PATIENT IN BED. A/OX1-2. NO S/S OF APPARENT DISTRESS ON ROOM AIR. NO C/O PAIN AT THIS TIME. LOVE DRAINING DARK EMILIA URINE. NO FLUIDS RUNNING AT THIS TIME PATIENT REFUSED. SAFETY IN PLACE. WILL CONTINUE WITH PLAN OF CARE FOR PATIENT.
[2021-09-10 20:00] VITALS: BP 119/84
[2021-09-10] MEDS: VANCOMYCIN 1 GM in IV D5W 250 ML IV SCH (21:00)
--- NOTE | 2021-09-10 21:02 | NUR ---
MS RN NOTE PATIENT REFUSED SCHEDULED 2100 MEDICATIONS, INCLUDING ZOSYN ANTIBIOTICS. PER PATIENT "NO ANTIBIOTICS!" "I ALREADY SPOKE TO THE DOCTOR!" PATIENT SCREAMING FOR ME TO "GET OUT! THIS IS A PRIVATE ROOM!". PATIENT PASSIVE ABOUT PATIENT TEACHING AND REFUSED TO LISTEN. IT WAS ALSO ENDORSED TO ME BY AM RN, THAT PATIENT ALSO REFUSED AM MEDS AND DOCTOR IS AWARE.
--- NOTE | 2021-09-10 22:32 | NUR ---
MS RN NOTE PATIENT BEING HYSTERICAL. GETTING OUT OF BED SAYING "I'LL LEAVE BY MYSELF", TRYING TO HIT NURSES. CHARGE NURSE WAS EVEN IN THE ROOM PATIENT NON-DIRECTABLE. SECURITY, MONIQUE MADE HIS ROUNDS AND HELPED PUT PATIENT BACK IN BED. PATIENT BACK IN BED, QUIET AT THE MOMENT. WILL CONTINUE TO MONITOR.
--- NOTE | 2021-09-10 22:35 | NUR ---
NOW REFUSING BLOOD SUGAR CHECK.
--- NOTE | 2021-09-10 23:45 | NUR ---
MS RN NOTE PATIENT ADAMANTLY REFUSED BLOOD SUGAR CHECK.
[2021-09-11] MEDS: GABAPENTIN 100 MG CAPSULE PO SCH ×2 (05:03→13:00)
--- NOTE | 2021-09-11 05:09 | NUR ---
MS RN NOTE PATIENT MORE CALM AND AGREED TO TAKE HER GABAPENTIN. HOWEVER STILL REFUSING BLOOD SUGAR CHECKS AND TO QUOTE "I DO NOT NEED BLOOD SUGAR" "I AM NOT DIABETIC, THEY JUST SAY THAT." "IT'S BEEN TESTED 3 TIMES" PATIENT GETS ANGRY WHEN RISKS AD BENEFITS ARE BEING EXPLAINED. WILL ASK AGAIN LATER AND CHECK PATIENT PERMITS.
[2021-09-11] MEDS: PIPERACILLIN /TAZOBACTAM 2.25 G in IV D5W 50 ML IV SCH ×5 (06:00→18:25)
--- NOTE | 2021-09-11 06:13 | NUR ---
MS RN NOTE PATIENT ADAMANTLY REFUSES IV ANTIBIOTICS. TELLING ME TO "GET OUT!"
[2021-09-11] MEDS: BLOOD SUGAR DIAGNOSTIC 1 EACH STRIP VI SCH ×3 (06:40→18:08)
--- NOTE | 2021-09-11 06:40 | NUR ---
MS RN NOTE PATIENT REFUSED BLOOD WORKS AND CONTINUE TO REFUSED BLOOD SUGAR CHECK.
--- NOTE | 2021-09-11 07:01 | NUR ---
MS RN CLOSING PATIENT IN BED WITH EYES CLOSED. ADAMANTLY REFUSED TREATMENTS. NO S/S OF APPARENT DISTRESS. NO C/O PAIN. LOVE DRAINING CLEAR EMILIA URINE WITH AN OUTPUT OF 900ML. ALL NEEDS ATTENDED. SAFETY KEPT IN PLACE THE WHOLE SHIFT. WILL ENDORSE TO MORNING RN FOR CONTINUITY OF CARE.
--- NOTE | 2021-09-11 07:20 | NUR ---
MS RN OPENING NOTES RECEIVED PATIENT IN BED, A/O X2. ON RA TOLERATING WELL. EVEN CHEST EXPANSION WITH UNLABORED BREATHING. LOVE CATHETER IN PLACE DRAINING CLEAR YELLOW URINE. SAFETY MEASURES IN PLACE: BED IN LOWEST POSITION WITH WHEELS LOCKED, SIDE RAILS UP X2, CALL LIGHT WITHIN REACH. WILL CONTINUE TO MONITOR
--- NOTE | 2021-09-11 07:24 | NUR ---
WOUND CARE CONSULT: PT ADAMANTLY REFUSED SKIN ASSESSMENT. REVIEWED PHOTO DOCUMENTATION AND SPOKE WITH NURSING STAFF: REDNESS TO PERINEUM AND INNER THIGHS NOTED IN PHOTO. RECOMMENDATIONS MADE FOR SKIN PROTECTION. DISCUSSED WITH NURSING STAFF. MD IN AGREEMENT WITH PLAN OF CARE. PT IS ON LORRAINE ISOFLEX LOW AIRLOSS BED.
[2021-09-11] MEDS: LEVOTHYROXINE SODIUM 125 MCG TABLET PO SCH (07:30)
[2021-09-11 08:20] VITALS: BP 117/43
--- NOTE | 2021-09-11 08:30 | NUR ---
RN NOTES PATIENT REFUSING MEDICATIONS. TRIED EDUCATING PATIENT ON IMPORTANCE OF ADHERING TO TREATMENT. PATIENT STATES, "I DO NOT NEED THESE MEDICATIONS". CHARGE NURSE NOTIFIED. WILL CONTINUE TO MONITOR PATIENT
[2021-09-11] MEDS: QUETIAPINE FUMARATE 25 MG TABLET PO SCH (09:00)
[2021-09-11] MEDS: ESCITALOPRAM OXALATE (10 MG) 10 MG TABLET PO SCH (09:00)
[2021-09-11] MEDS: FAMOTIDINE (20 MG) 20 MG TABLET PO SCH (09:00)
[2021-09-11] MEDS: ASPIRIN 81 MG TAB.CHEW PO SCH (09:00)
[2021-09-11] MEDS: ENOXAPARIN SODIUM 40 MG/0.4 ML DISP.SYRIN SQ SCH (09:00)
[2021-09-11] MEDS: POLYETHYLENE GLYCOL 3350 17 GM POWD.PACK PO SCH (09:00)
[2021-09-11] MEDS: LOSARTAN POTASSIUM 50 MG TABLET PO SCH (09:00)
[2021-09-11] MEDS: METOPROLOL TARTRATE 25 MG TABLET PO SCH ×2 (09:00→17:00)
[2021-09-11] MEDS: CLOTRIMAZOLE 1% 15 GM TUBE TP SCH ×2 (09:00→17:00)
[2021-09-11 10:07] LABS: IMMUNOGLOBULIN A, SERUM 172 mg/dL (64-422); IMMUNOGLOBULIN G, SERUM 862 mg/dL (586-1602); IMMUNOGLOBULIN M, SERUM 34 mg/dL (26-217)
[2021-09-11] MEDS: INSULIN GLARGINE, 100 UNIT/ML CARTRIDGE SQ SCH ×2 (10:09→18:02)
[2021-09-11] MEDS: *INSULIN REGULAR(HUMULIN R)HUM 100 UNIT/ML VIAL SQ PRN ×2 (10:19→18:02)
--- NOTE | 2021-09-11 12:00 | NUR ---
RN NOTES PATIENT REFUSING TO HAVE BLOOD SUGAR CHECKED. UNABLE TO ADMINISTER INSULIN. PATIENT DISPLAYS NO CURRENT SIGNS OF DISTRESS.
[2021-09-11 14:58] LABS: BASOPHILS # (AUTO) 0.2 K/uL (0.0-0.2); BASOPHILS % (AUTO) 0.5 % (0.0-2.0); EOSINOPHILS % (AUTO) 0.2 % (0.0-6.0); HEMATOCRIT 32 % (33-45); HEMOGLOBIN 10.4 g/dL (11.5-14.8); LYMPHOCYTES % (AUTO) 6.2 % (20.0-44.0); MEAN CORPUSCULAR HGB CONC 33 g/dl (31.0-36.0); MEAN CORPUSCULAR VOLUME 85 fL (82-100); MONOCYTES % (AUTO) 9.3 % (2.0-12.0); NEUTROPHILS # (AUTO) 26.7 K/uL (1.8-8.9); NEUTROPHILS % (AUTO) 83.8 % (43.0-81.0); PLATELET COUNT (AUTO) 495 K/uL (150-450); RED BLOOD CELL COUNT(AUTO) 3.73 MIL/uL (4.0-5.2)
[2021-09-11 15:07] LABS: *SPE A/G RATIO 0.6 (0.7-1.7); *SPE ALPHA-1-GLOBULIN 0.5 g/dL (0.0-0.4); *SPE ALPHA-2-GLOBULIN 1.1 g/dL (0.4-1.0); *SPE M-SPIKE Not Observed g/dL (Not Observed)
[2021-09-11 15:20] LABS: ALBUMIN 1.8 g/dL (3.4-5.0); BILIRUBIN,TOTAL 0.7 mg/dL (0.2-1.0); CALCIUM, SERUM 8.4 mg/dL (8.5-10.1); POTASSIUM 3.6 mmol/L (3.5-5.1)
[2021-09-11 15:21] LABS: WHITE BLOOD COUNT (AUTO) 31.9 K/uL (4.3-11.0)
[2021-09-11 16:01] VITALS: BP 100/70
[2021-09-11] MEDS: ATORVASTATIN 10 MG TABLET PO SCH (18:19)
[2021-09-11 18:28] LABS: BAND % (MANUAL) 1 % (0.0-5.0); LYMPHOCYTES % (MANUAL) 9 % (16-48); MONOCYTES % (MANUAL) 6 % (0-11.0); NEUTROPHILS % (MANUAL) 84 (42-76)
--- NOTE | 2021-09-11 18:30 | NUR ---
RN NOTES PATIENT SEEN BY CRISIS TEAM FOR PSYCH EVALUATION. PATIENT PLACED ON PSYCH HOLD AND WILL BE TRANSFERRED TO PSYCH UNIT FOR CONTINUATION OF CARE. WILL ENDORSE TO THE ON SITE NURSE NURSE FOR MELL.
--- NOTE | 2021-09-11 18:45 | NUR ---
RN NOTES PATIENT REMAINS A/O X2. APPEARS TO BE MORE COOPERATIVE WHEN INVOLVED IN SELF CARE PLAN. MRI OF ABDOMEN SCHEDULED FOR TOMORROW AM. CONSENT PROVIDED BY BETH OVER THE PHONE WITH SECOND NURSE TAY WITNESS. ALL ORDERS CARRIED OUT. SAFETY MEASURES IN PLACE: BED IN LOWEST POSITION WITH WHEELS LOCKED, SIDE RAILS UP X2, CALL LIGHT WITHIN REACH. WILL ENDORSE TO PROBATION SUPERVISOR NURSE FOR MELL
[2021-09-11] MEDS ORDERED: ENOX40DI SQ (23:47)
[2021-09-12] MEDS ORDERED: LORAZEPAM 1 MG TABLET PO ONE (08:00)
== END 2021-09-11 20:55 | DRG 637 ==
LOC: ER 21:49 → TRANSITION 09-07 03:45 → ICU 09-07 04:51 → MED 09-08 15:55
PROVIDERS: ADMIT Nurse Practitioner Acute Care
PROC: 05HC33Z Insertion of Infusion Device into Left Basilic Vein, Percutaneous Approach (ICD-10-PCS; principal; 2021-09-08)
DX: E11.10 Type 2 diabetes mellitus with ketoacidosis without coma (principal); G93.41 Metabolic encephalopathy; E87.1 Hypo-osmolality and hyponatremia; E11.65 Type 2 diabetes mellitus with hyperglycemia; Z91.19 Patient's noncompliance with other medical treatment and regimen; I25.10 Atherosclerotic heart disease of native coronary artery without angina pectoris; E86.0 Dehydration; E78.5 Hyperlipidemia, unspecified; Z20.822 Contact with and (suspected) exposure to COVID-19; I10 Essential (primary) hypertension; J44.9 Chronic obstructive pulmonary disease, unspecified; Z88.1 Allergy status to other antibiotic agents; Z88.8 Allergy status to other drugs, medicaments and biological substances; Z79.51 Long term (current) use of inhaled steroids; Z79.84 Long term (current) use of oral hypoglycemic drugs; Z91.14 Patient's other noncompliance with medication regimen; D72.829 Elevated white blood cell count, unspecified; F25.9 Schizoaffective disorder, unspecified; F31.9 Bipolar disorder, unspecified; E03.9 Hypothyroidism, unspecified; Z91.81 History of falling; M25.552 Pain in left hip; M25.562 Pain in left knee; F29 Unspecified psychosis not due to a substance or known physiological condition; E88.09 Other disorders of plasma-protein metabolism, not elsewhere classified; I70.0 Atherosclerosis of aorta; E27.8 Other specified disorders of adrenal gland; D50.9 Iron deficiency anemia, unspecified; R63.0 Anorexia; Z68.22 Body mass index [BMI] 22.0-22.9, adult
CPT/HCPCS: 36410; 36415; 36600; 71045-TC; 71260-TC; 73521; 73564-TC; 74178; 80048-TC; 80053-TC; 80061-TC; 80076-TC; 80202-TC; 81001; 82010-TC; 82378; 82728-TC; 82784; 82803-TC; 82962-TC; 83540-TC; 83605-TC; 83690-TC; 83735-TC; 84100-TC; 84155; 84165; 84443-TC; 85025-TC; 86301; 86334; 87040-TC; 87081-TC; 87186-TC; G0378; J1650; J1815; J2405; J2543; J3370; J3480; J7030; J7040; J7050; J7060; Q9967

== ENCOUNTER 2021-09-11 21:07 | Inpatient (IN) | payer MEDICARE, BC ==
[~2021-09-11] VITALS: Ht 160 cm; Wt 56.7 kg
--- NOTE | 2021-09-11 20:00 | NUR ---
MS RN OPENING NOTES: RECEIVED PATIENT SLEEP IN BED COMFORTABLY, AROUSABLE TO VERBAL STIMULI, BED IN LOW POSITION CALL LIGHTS WITHIN REACH, NO COMPLAIN OF PAIN AND DISCOMFORT AT THIS TIME, PATIENT APPEARS CALM AND NONE COMBATIVE, WITH LOVE CATHETER WITH 300CC URINE OUTPUT LIGHT YELLOW COLORED, ON ROOM AIR SATURATING WELL, WITH IV LINE AT RAC #20SL, PATIENT AWAITING TRANSFER TO [facility], V/S ARE WITHIN NORMAL REACH, KEPT CLEAN AND DRY, ALL NEEDS MET WILL CONTINUE TO MONITOR
[2021-09-11 21:40] VITALS: BP 129/59
--- NOTE | 2021-09-11 21:50 | NUR ---
RN NOTES: ENDORSEMENT GIVEN TO TIFF[facility] CARDONA FOR TRANSFER TO GPS, IV LINE REMOVE, ON ROOM AIR SATURATING WELL, V/S ARE FOLLOWS: BP-128/68, PULSE-107, RR-18, TEMP-97.6, O2 -98% RA, PATIENT WAS SEND OUT TO GPS FROM [facility] TO [facility] ON STABLE CONDITION.
[2021-09-11] MEDS ORDERED: ACETAMINOPHEN 325 MG TABLET PO PRN (22:00)
[2021-09-11] MEDS ORDERED: MAG HYDROX/AL HYDROX/SIMETH 30 ML UDC PO PRN (22:00)
[2021-09-11] MEDS ORDERED: BLOOD SUGAR DIAGNOSTIC 1 EACH STRIP IN ONE (22:00)
[2021-09-11] MEDS ORDERED: MAGNESIUM HYDROXIDE 30 ML UDC PO PRN (22:00)
--- NOTE | 2021-09-11 23:41 | NUR ---
GPS RN NOTE: LEFT HIP PAIN PATIENT C/O LEFT HIP PAIN, UNABLE TO SCALE PAIN LEVEL DUE TO CONFUSION AND WANTED TO TAKE PAIN MEDICINE. PRN TYLENOL 650 MG PO ADMINISTERED WITH APPLESAUCE. WILL CONTINUE TO MONITOR.
[2021-09-11] MEDS ORDERED: ENOX40DI SQ (23:47)
--- NOTE | 2021-09-12 00:10 | NUR ---
GPS RN NOTE DR. PEÑA NOTIFIED ABOUT PATIENT'S ADMISSION AT [facility] UNIT AND REQUESTED MED RECON. REVIEWED PATIENT'S LAB WORK AND MEDICATION LIST. MEDS WILL BE RECONCILED BY DR. PEÑA.
--- NOTE | 2021-09-12 00:15 | NUR ---
GPS RANGE FEEDER NOTE ADMITTED 81 Y.O FEMALE PATIENT FROM MED SURG 3 MOBILE UNIT. PATIENT ARRIVED TO THE UNIT VIA GURNEY ACCOMPANIED BY [facility] NURSES. PATIENT ON 5150 HOLD FOR GD. PER 5150 HOLD, PATIENT WAS VISIBLY ANGRY. PATIENT DENIED ANY DX HISTORY OR REPORTS SHE DOES NOT NEED MEDS AND REPORTS SHE WANTS TO GO HOME. PATIENT HAS BEEN REFUSING HER INSULIN AND OTHER MEDICATIONS FOR COUPLE OF DAYS. PATIENT HAS BIZARRE BEHAVIOR. 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 UPON FACE TO FACE ASSESSMENT, PATIENT IS A & O X 1, CONFUSED, DISORGANIZED, RESTRICTED, ANXIOUS AT TIMES. FULL BODY ASSESSMENT DONE, PICTURES TAKEN. BS LEVEL IS 215 MG/DL, NO COVERAGE GIVEN SINCE PATIENT REFUSED ANY SNACK AT THIS TIME. BELONGINGS INVENTORY DONE BY SENIOR SCHEDULER'S. PATIENT WAS ORIENTED IN THE UNIT AND UNIT POLICIES. UNABLE TO GET INFORMATION REGARDING COVID VACCINE DUE TO PATIENT BEING CONFUSED. WILL CONTACT THE FAMILY OR SNF IN AM TO GET COVID VACCINE INFORMATION. PATIENT REFUSED PNEUMOCOCCAL AND FLU VACCINE. DR. VILLEGAS (PSYCHIATRIST) AND DR. PEÑA MADE AWARE OF THE ADMISSION. PATIENT'S RIGHT BOOKLET WAS GIVEN TO THE PATIENT INCLUDING ADVISEMENT. PATIENT HAS LOVE CATHETER IN PLACE UPON ADMISSION. PATIENT IS UNABLE TO AMBULATE, UNSTEADY, HIGH FALL RISK. BED IN LOW LOCKED POSITION. BED ALARM IS ON. WILL CONT. MONITORING Q 15 MIN FOR SAFETY AND BEHAVIOR.
[2021-09-12] MEDS ORDERED: IBUPROFEN 400 MG TABLET PO PRN (00:30)
[2021-09-12] MEDS ORDERED: ALBUTEROL FS 2.5 MG/3 ML VIAL.NEB NEB PRN (00:30)
[2021-09-12] MEDS ORDERED: DEXTROSE 50%-WATER 50 ML DISP.SYRIN IV PRN (01:00)
[2021-09-12] MEDS ORDERED: Z GUARD REMEDY 4 OZ OINT TP PRN (02:30)
--- NOTE | 2021-09-12 04:02 | NUR ---
GPS RN NOTE CALLED [facility] AT [phone] TO GET INFORMATION ABOUT PATIENT'S COVID VACCINE. SPOKE TO ÁNGEL AND HE STATED THAT THEY HAVE PATIENT'S COVID VACCINE INFORMATIONS IN HER CHART AND THE CHART IS IN BUSINESS OFFICE AND ÁNGEL DOES NOT HAVE ACCESS. ÁNGEL REQUESTED TO CALL BACK AFTER 9 AM SO THEY CAN GIVE THE INFORMATION. WILL ENDORSE TO AM RN TO FOLLOW UP.
[2021-09-12] MEDS: GABAPENTIN 100 MG CAPSULE PO SCH ×3 (05:47→21:48)
[2021-09-12 05:57] VITALS: BP 129/59
--- NOTE | 2021-09-12 07:19 | NUR ---
GPS RN NOTE: FAMILY NOTIFIED CALLED ELINChris JIN (PERSON TO NOTIFY) AT [phone], WHO STATED THAT SHE HAS PATIENT'S DPOA, NOTIFIED HER ABOUT PATIENT'S ADMISSION AT [facility] UNIT.
[2021-09-12 07:30] LABS: CREATININE 0.8 mg/dL (0.6-1.3)
--- NOTE | 2021-09-12 07:32 | NUR ---
GPS RN NOTE ENDORSED TO AM RN TO FOLLOW UP WITH [facility] TO GET COVID VACCINE INFORMATION.
[2021-09-12 08:00] VITALS: BP 106/55
[2021-09-12] MEDS: BLOOD SUGAR DIAGNOSTIC 1 EACH STRIP VI SCH ×4 (08:25→21:49)
[2021-09-12] MEDS: INSULIN REGULAR, HUMAN 100 UNIT/ML 3 ML VIAL SQ PRN ×3 (08:34→17:15)
[2021-09-12] MEDS: METOPROLOL TARTRATE 25 MG TABLET PO SCH ×2 (09:00→21:49)
[2021-09-12] MEDS: LOSARTAN POTASSIUM 50 MG TABLET PO SCH (09:00)
[2021-09-12] MEDS: POLYETHYLENE GLYCOL 3350 17 GM POWD.PACK PO SCH (09:02)
[2021-09-12] MEDS: ENOXAPARIN SODIUM 40 MG/0.4 ML DISP.SYRIN SQ SCH (09:03)
[2021-09-12] MEDS: FAMOTIDINE (20 MG) 20 MG TABLET PO SCH (09:03)
[2021-09-12] MEDS: ASPIRIN 81 MG TAB.CHEW PO SCH (09:04)
[2021-09-12] MEDS: LEVOTHYROXINE SODIUM 125 MCG TABLET PO SCH (09:04)
[2021-09-12] MEDS: METFORMIN 500 MG TABLET PO SCH ×2 (09:04→17:08)
[2021-09-12] MEDS: Z GUARD REMEDY 4 OZ OINT TP SCH (09:09)
[2021-09-12] MEDS: QUETIAPINE FUMARATE 25 MG TABLET PO SCH ×2 (09:59→21:48)
[2021-09-12] MEDS: ESCITALOPRAM OXALATE (10 MG) 10 MG TABLET PO SCH (09:59)
--- NOTE | 2021-09-12 10:08 | NUR ---
VINICIO Initial Discharge Plan: Patient currently resides at [facility] located at [id number] [place] [address]; ). VINICIO contacted Reji esqueda ([phone]) and he stated he would let this gag writer know if pt is welcomed back. VINICIO will work with the MD, treatment team, and family to help coordinate appropriate discharge.
--- NOTE | 2021-09-12 10:08 | NUR ---
VINICIO Admit Source: Patient brought to [facility] due to GD. Pt placed on a hold because she was uncooperative at her facility and was not taking her medications. Patient currently resides at [facility] located at [address] [place], [place] [id number]; ). VINICIO contacted Reji esqueda ([phone]) and he stated he would let this com writer know if pt is welcomed back.
--- NOTE | 2021-09-12 11:22 | NUR ---
VINICIO Family Contact: VINICIO contacted pt's friend Aurea Campo ([phone]) who stated that she is a friend of the pt and has been involved in her care. She expressed that she is the DPOA and will send the documents to this promotion writer. She expressed that she would want pt back to [facility] when pt is ready.
--- NOTE | 2021-09-12 11:26 | NUR ---
SNF Contact: VINICIO contacted Reji esqueda ([phone]) from [facility] who stated that pt is welcomed back upon dc.
--- NOTE | 2021-09-12 13:15 | NUR ---
[facility] REGARD TO PT'S COVID 19 VACCINATION HX. LYNDON NOAH WILL CONTACT [facility] THE INFORMATION WAS NOT READILY AVAILABLE.
--- NOTE | 2021-09-12 13:19 | NUR ---
MORENO ZAMORA CONTACTED [facility] REGARDING COVID 19 VACCINE HX: 1ST DOSE; 07/07/20 [facility] 2ND DOSE: 08/07/20 JULY PACHECO.
[2021-09-12 16:00] VITALS: BP 104/71
[2021-09-12] MEDS: ATORVASTATIN 10 MG TABLET PO SCH (17:08)
[2021-09-12 20:24] VITALS: BP 132/54
[2021-09-12] MEDS: *INSULIN REGULAR(HUMULIN R)HUM 100 UNIT/ML VIAL SQ PRN (21:52)
[2021-09-12] MEDS: INSULIN GLARGINE, 100 UNIT/ML CARTRIDGE SQ SCH (21:54)
[2021-09-13] MEDS: GABAPENTIN 100 MG CAPSULE PO SCH ×3 (06:28→21:16)
[2021-09-13 08:00] VITALS: BP 97/69
[2021-09-13] MEDS: BLOOD SUGAR DIAGNOSTIC 1 EACH STRIP VI SCH ×4 (08:05→22:33)
[2021-09-13 08:06] LABS: BASOPHILS # (AUTO) 0.1 K/uL (0.0-0.2); BASOPHILS % (AUTO) 0.4 % (0.0-2.0); EOSINOPHILS % (AUTO) 0.9 % (0.0-6.0); HEMATOCRIT 31 % (33-45); HEMOGLOBIN 9.9 g/dL (11.5-14.8); LYMPHOCYTES # (AUTO) 2.5 K/uL (0.8-4.8); LYMPHOCYTES % (AUTO) 11.9 % (20.0-44.0); MEAN CORPUSCULAR HGB CONC 32 g/dl (31.0-36.0); MEAN CORPUSCULAR VOLUME 86 fL (82-100); MONOCYTES # (AUTO) 2.4 K/uL (0.1-1.30); MONOCYTES % (AUTO) 11.5 % (2.0-12.0); NEUTROPHILS # (AUTO) 15.8 K/uL (1.8-8.9); NEUTROPHILS % (AUTO) 75.3 % (43.0-81.0); PLATELET COUNT (AUTO) 640 K/uL (150-450); RED BLOOD CELL COUNT(AUTO) 3.57 MIL/uL (4.0-5.2); WHITE BLOOD COUNT (AUTO) 20.9 K/uL (4.3-11.0)
[2021-09-13] MEDS: INSULIN REGULAR, HUMAN 100 UNIT/ML 3 ML VIAL SQ PRN ×2 (08:07→12:11)
[2021-09-13] MEDS: METFORMIN 500 MG TABLET PO SCH ×2 (08:37→18:07)
[2021-09-13] MEDS: ESCITALOPRAM OXALATE (10 MG) 10 MG TABLET PO SCH (08:38)
[2021-09-13] MEDS: FAMOTIDINE (20 MG) 20 MG TABLET PO SCH (08:38)
[2021-09-13] MEDS: ENOXAPARIN SODIUM 40 MG/0.4 ML DISP.SYRIN SQ SCH ×2 (08:38→09:00)
[2021-09-13] MEDS: LEVOTHYROXINE SODIUM 125 MCG TABLET PO SCH (08:38)
[2021-09-13] MEDS: ASPIRIN 81 MG TAB.CHEW PO SCH (08:39)
[2021-09-13] MEDS: METOPROLOL TARTRATE 25 MG TABLET PO SCH ×2 (08:39→21:14)
[2021-09-13] MEDS: QUETIAPINE FUMARATE 25 MG TABLET PO SCH ×2 (08:39→21:15)
[2021-09-13] MEDS: LOSARTAN POTASSIUM 50 MG TABLET PO SCH (08:39)
[2021-09-13] MEDS: POLYETHYLENE GLYCOL 3350 17 GM POWD.PACK PO SCH (08:40)
[2021-09-13] MEDS: Z GUARD REMEDY 4 OZ OINT TP SCH (09:41)
--- NOTE | 2021-09-13 12:27 | NUR ---
VINICIO Family Contact: SW contacted pt's friend KIANIRIS Campo ([phone]) notified that pt will discharge 09/14 back to [facility]. She is aware and agreeable.
[2021-09-13 13:50] LABS: NEUTROPHILS % (MANUAL) 66 (42-76)
[2021-09-13 13:51] LABS: BAND % (MANUAL) 6 % (0.0-5.0); LYMPHOCYTES % (MANUAL) 16 % (16-48); MONOCYTES % (MANUAL) 9 % (0-11.0); REACTIVE LYMPHOCYTES 3 % (0-0)
--- NOTE | 2021-09-13 15:34 | NUR ---
Procalcitonin is 0.30 and resulted reported to Ele Leyva NP and said she will refer to Dr. Enciso for the bone marrow.
[2021-09-13 16:00] VITALS: BP 103/58
--- NOTE | 2021-09-13 16:13 | NUR ---
SW Transfer Note: Patient will transfer to medical floor. Medical doctor recommendation to do bone marrow biopsy. Dr. Kincaid covering for Dr. Huynh will discontinue pt's hold. Patient resides at [address] [address]; ). Patients KIANIRIS Villar ([phone]) is involved in patient's care and would want pt back to [facility].
--- NOTE | 2021-09-13 16:21 | NUR ---
Received a call From Sarah Barrios NP to transfer pt. to the medical floor for bone marrow aspiration and biopsy. Notified Lino Mccray NP of Dr. Chirinos and ordered to d/c pt. to the medical floor and d/c hold and he reconciled the meds. MARLY Lawrence contacted at [phone] and made aware of the transfer to the medical floor. spring up supervisor made aware.
--- NOTE | 2021-09-13 16:56 | NUR ---
BS is 162 and refused for insulin
[2021-09-13] MEDS: FERROUS SULFATE (325 MG) 325 MG/TAB TABLET PO SCH (16:58)
--- NOTE | 2021-09-13 17:08 | NUR ---
Report given to Mayra DUMONT in Med- Surg
--- NOTE | 2021-09-13 17:30 | NUR ---
Pt. sent to Med- surg via a hospital bed with staffs.
--- NOTE | 2021-09-13 17:59 | NUR ---
Pt. was sent back to the unit and said they will do the bone marrow aspiration on Friday or Friday. Dr. Chirinos made aware and cancel the discharge and put pt. back to 72 hour hold.
[2021-09-13] MEDS: ATORVASTATIN 10 MG TABLET PO SCH (18:07)
--- NOTE | 2021-09-13 19:28 | NUR ---
DPOA Aurea Lawrence contacted at [phone] made aware that pt. was sent back in the unit and bone marrow wasn't done today.
[2021-09-13 20:00] VITALS: BP 109/53
[2021-09-13] MEDS: INSULIN GLARGINE, 100 UNIT/ML CARTRIDGE SQ SCH (22:28)
[2021-09-13] MEDS: *INSULIN REGULAR(HUMULIN R)HUM 100 UNIT/ML VIAL SQ PRN (22:30)
[2021-09-14] MEDS: GABAPENTIN 100 MG CAPSULE PO SCH ×2 (05:10→12:00)
[2021-09-14] MEDS: BLOOD SUGAR DIAGNOSTIC 1 EACH STRIP VI SCH ×2 (07:44→11:51)
[2021-09-14] MEDS: INSULIN REGULAR, HUMAN 100 UNIT/ML 3 ML VIAL SQ PRN ×2 (07:47→11:53)
[2021-09-14 08:00] VITALS: BP 119/100
[2021-09-14] MEDS: POLYETHYLENE GLYCOL 3350 17 GM POWD.PACK PO SCH (08:16)
[2021-09-14] MEDS: FERROUS SULFATE (325 MG) 325 MG/TAB TABLET PO SCH ×2 (08:16→16:21)
[2021-09-14] MEDS: METFORMIN 500 MG TABLET PO SCH (08:16)
[2021-09-14] MEDS: ENOXAPARIN SODIUM 40 MG/0.4 ML DISP.SYRIN SQ SCH (08:16)
[2021-09-14] MEDS: ASPIRIN 81 MG TAB.CHEW PO SCH (08:17)
[2021-09-14] MEDS: ESCITALOPRAM OXALATE (10 MG) 10 MG TABLET PO SCH (08:17)
[2021-09-14] MEDS: QUETIAPINE FUMARATE 25 MG TABLET PO SCH (08:17)
[2021-09-14] MEDS: LOSARTAN POTASSIUM 50 MG TABLET PO SCH (08:17)
[2021-09-14] MEDS: LEVOTHYROXINE SODIUM 125 MCG TABLET PO SCH (08:17)
[2021-09-14] MEDS: FAMOTIDINE (20 MG) 20 MG TABLET PO SCH (08:17)
[2021-09-14] MEDS: Z GUARD REMEDY 4 OZ OINT TP SCH (08:20)
[2021-09-14] MEDS: METOPROLOL TARTRATE 25 MG TABLET PO SCH (08:20)
--- NOTE | 2021-09-14 08:38 | NUR ---
SW Discharge Note: Patient will be discharged to long term facility [facility] [address] [facility] [address], [place] [address]; ). Please arrange transportation at 1PM. Wet Pan Operator spoke with Susan cooler worker at [facility]; [phone], who stated patient will be accepted today. Patients DPOA Aurea ([phone]) is aware and agreeable. Patient is alert and oriented x3 and is unable to plan for self-care. Patient denies any suicidal or homicidal ideations. Patient is aware and agreeable with discharge plans. Patient will continue to follow-up with (psychiatrist) Dr. Zuniga located at [id number] [place] [id number]; ([phone]) and (photocopying equipment mechanic) Dr. Orona [address], [place] [address]; ([phone]). Patient presents with euthymic and congruent mood.
--- NOTE | 2021-09-14 11:32 | NUR ---
VINICIO Coordination of Care: VINICIO Contacted [facility]- for appointment for bone marrow biopsy- outpatient apt; with Dr. Enciso located at [address], [place] [address]; ([phone]) on September 21 at 9AM. VINICIO notified Susan from [facility] [phone]. VINICIO notified pt's MARLY Villar ([phone]) in regards to appointment date. VINICIO left a detailed voicemail.
[2021-09-14 16:00] VITALS: BP 95/50
--- NOTE | 2021-09-14 16:46 | NUR ---
RN NOTE- PT DISCHARGED TO [facility] AT THIS TIME VIA AMBULANCE AND GURNEY. VS STABLE, ID WRISTBAND REMOVED, AFTERCARE AND ORDERS/REPORT PHONED TO FACILITY. ESCORTED OFF UNIT BY STAFF.
== END 2021-09-14 16:45 | DRG 885 ==
LOC: GPS 21:07 → UNDODISIN 09-13 17:08
PROVIDERS: ADMIT Nurse Practitioner Psychiatric/Mental Health; ATTEND Registered Nurse
DX: F31.64 Bipolar disorder, current episode mixed, severe, with psychotic features (principal); E11.65 Type 2 diabetes mellitus with hyperglycemia; G92.8 Other toxic encephalopathy; F23 Brief psychotic disorder; E87.1 Hypo-osmolality and hyponatremia; E87.2 Acidosis; F41.9 Anxiety disorder, unspecified; G31.84 Mild cognitive impairment of uncertain or unknown etiology; I25.10 Atherosclerotic heart disease of native coronary artery without angina pectoris; Z91.14 Patient's other noncompliance with medication regimen; J44.9 Chronic obstructive pulmonary disease, unspecified; K57.30 Diverticulosis of large intestine without perforation or abscess without bleeding; Z79.899 Other long term (current) drug therapy; K59.00 Constipation, unspecified; I10 Essential (primary) hypertension; E03.9 Hypothyroidism, unspecified; D50.9 Iron deficiency anemia, unspecified; E78.5 Hyperlipidemia, unspecified; I70.0 Atherosclerosis of aorta; D72.829 Elevated white blood cell count, unspecified; E88.09 Other disorders of plasma-protein metabolism, not elsewhere classified; E27.8 Other specified disorders of adrenal gland
CPT/HCPCS: 36415; 80061-TC; 82565-TC; 82962-TC; 85025-TC; 87081-TC; 97116-TC; 97530-TC; J1650; J1815

== ENCOUNTER 2022-01-26 08:43 | Inpatient (IN) | payer MEDICARE, BC ==
[~2022-01-26] VITALS: Ht 160 cm; Wt 50.8 kg
[~2022-01-26 08:43] MED LIST changes: +ENOX40DI SQ
--- NOTE | 2022-01-26 08:51 | NUR ---
TO ER BED 12. KONG MAGAÑA [facility], ON 5150 HOLD FOR AGRESSION AND REFUSING MEDICATION. VITALS ARE WITHIN NORMAL LIMITS. AWAITING MD MOORE.
--- NOTE | 2022-01-26 08:57 | NUR ---
COVID SWAB DONE AND SENT TO LAB
[2022-01-26] MEDS ORDERED: BENZ1TAB7 PO (09:15)
[2022-01-26] MEDS ORDERED: INSU100V7 SQ (09:15)
[2022-01-26] MEDS ORDERED: INSU100V3 IJ (09:15)
[2022-01-26] MEDS ORDERED: MULT-447 PO (09:15)
--- NOTE | 2022-01-26 09:22 | NUR ---
URINE COLLECTED AND SENT TO LAB
[2022-01-26 09:51] LABS: BASOPHILS # (AUTO) 0.1 K/uL (0.0-0.2); EOSINOPHILS % (AUTO) 0.9 % (0.0-6.0); HEMATOCRIT 43 % (33-45); HEMOGLOBIN 14.1 g/dL (11.5-14.8); LYMPHOCYTES # (AUTO) 2.6 K/uL (0.8-4.8); LYMPHOCYTES % (AUTO) 23.4 % (20.0-44.0); MEAN CORPUSCULAR HGB CONC 33 g/dl (31.0-36.0); MEAN CORPUSCULAR VOLUME 81 fL (82-100); MONOCYTES # (AUTO) 0.8 K/uL (0.1-1.30); MONOCYTES % (AUTO) 7.6 % (2.0-12.0); NEUTROPHILS # (AUTO) 7.4 K/uL (1.8-8.9); NEUTROPHILS % (AUTO) 67.1 % (43.0-81.0); PLATELET COUNT (AUTO) 412 K/uL (150-450); RED BLOOD CELL COUNT(AUTO) 5.33 MIL/uL (4.0-5.2)
[2022-01-26 10:15] LABS: CALCIUM, SERUM 8.9 mg/dL (8.5-10.1); CARBON DIOXIDE 23 mmol/L (21-32); CHLORIDE 104 mmol/L (98-107); CREATININE 0.8 mg/dL (0.6-1.3); GLUCOSE 280 mg/dL (74-106); POTASSIUM 3.9 mmol/L (3.5-5.1); SODIUM SERUM 135 mmol/L (136-145); UREA NITROGEN, BLOOD 21 mg/dL (7-18)
[2022-01-26 10:21] LABS: ACETAMINOPHEN < 10 ug/ml (10-30); ALANINE AMINOTRANSFERASE 13 U/L (12-78); ALBUMIN 3.1 g/dL (3.4-5.0); ALCOHOL, BLOOD < 3 mg/dL (0-0); ALKALINE PHOSPHATASE 90 U/L (46-116); ASPARTATE AMINOTRANSFERASE 16 U/L (15-37); BILIRUBIN,DIRECT 0.1 mg/dL (0.0-0.2); BILIRUBIN,TOTAL 0.5 mg/dL (0.2-1.0); TOTAL PROTEIN, SERUM 7.4 g/dL (6.4-8.2)
[2022-01-26 10:55] LABS: BILIRUBIN,URINE NEGATIVE (NEGATIVE); COLOR,URINE YELLOW (YELLOW); LEUKOCYTE ESTERASE ,URINE MODERATE (NEGATIVE); NITRITE, URINE POSITIVE (NEGATIVE); PROTEIN,URINE >=300 mg/dl (NEGATIVE); UGLUCOSE 500 MG/DL mg/dL (NEGATIVE); UROBILINOGEN,URINE 0.2 EU/dL (0.2)
[2022-01-26 10:56] LABS: PH,URINE >8.5 (5.0-8.0)
--- NOTE | 2022-01-26 11:03 | NUR ---
CALLED NURSING SUP REGARDING PT BED
--- NOTE | 2022-01-26 11:04 | NUR ---
ROOM 212-A
--- NOTE | 2022-01-26 11:13 | NUR ---
report given to charge nurse ling. awaiting transfer to dat psych floor.
[2022-01-26 11:15] LABS: BACTERIA,URINE None seen /HPF (None Seen); CALCIUM OXALATE CRYSTALS,UR Moderate /HPF (None Seen); RBC,URINE NONE SEEN /HPF (0-2); SQUAMOUS EPITHELIAL CELL,UR None Seen /HPF (None Seen); WBC,URINE TOO NUMEROUS TO COUN /HPF (0-3)
--- NOTE | 2022-01-26 11:44 | NUR ---
TRANSFERRED TO GPS IN STABLE CONDITION
[2022-01-26] MEDS ORDERED: MAGNESIUM HYDROXIDE 30 ML UDC PO PRN (12:00)
[2022-01-26] MEDS ORDERED: MAG HYDROX/AL HYDROX/SIMETH 30 ML UDC PO PRN (12:00)
[2022-01-26] MEDS ORDERED: ALBUTEROL FS 2.5 MG/3 ML VIAL.NEB NEB PRN (12:00)
[2022-01-26] MEDS ORDERED: LORAZEPAM 0.5 MG TABLET PO PRN (12:00)
[2022-01-26] MEDS ORDERED: TEMAZEPAM 7.5 MG CAPSULE PO PRN (12:00)
[2022-01-26] MEDS ORDERED: BLOOD SUGAR DIAGNOSTIC 1 EACH STRIP IN ONE (12:00)
[2022-01-26] MEDS ORDERED: ACETAMINOPHEN 325 MG TABLET PO PRN (12:00)
[2022-01-26 12:13] VITALS: BP 133/72
[2022-01-26] MEDS ORDERED: DEXTROSE 50%-WATER 50 ML DISP.SYRIN IV PRN (12:30)
[2022-01-26] MEDS: BLOOD SUGAR DIAGNOSTIC 1 EACH STRIP IN SCH ×3 (12:48→21:56)
[2022-01-26] MEDS: GABAPENTIN 100 MG CAPSULE PO SCH ×2 (13:00→21:17)
--- NOTE | 2022-01-26 13:00 | NUR ---
RN-NOTES PATIENT REFUSED NEURONTIN 100MG P.O AT 1300 .OFFERED X3
--- NOTE | 2022-01-26 14:41 | NUR ---
RN-NOTES ADMITTED 82 Y.O FEMALE PATIENT FROM [facility] ER. PATIENT ON 5150 HOLD FOR DTO /DTS/ AND GD ADULT. PATIENT WAS BROUGHT IN BY ER STAFF VIA HOSPITAL BED AWAKE A/O X1 GUARDED,NON AMBULATORY.NEED THREE STAFF ASSIST TO PUT PATIENT IN BED.UPON FACE TO FACE INTERVIEW, PATIENT UNABLE TO ANSWER MOST OF THE GRAIN FARMER QUESTIONS. MOST OF THE INFORMATIONS WAS TAKEN FROM THE PAPERS FROM THE SNF FACILITY WERE PATIENT'S CAME FROM. ELIN OLSEN ([phone]) WAS MADE AWARE OF PT.'S ADMISSION. SKIN ASSESSMENT DONE . PATIENT HAS NO BELONGINGS ON ADMISSION. PATIENT BS WAS 234 ON ADMISSION ,REFUSED INSULIN COVERAGE OF 4 UNITS DESPITE EXPLANATIONS RISK AND BENEFITS.PATIENT ALSO REFUSED MRSA SWAB.SCHOOL MANAGER JIGAR STROUD ( LABEL CODER) AWARE AND DID RECONCILED MEDICATIONS. LORENA LOVELL MADE AWARE OF THE ADMISSION ([id number] FOR DR. VASQUEZ). PATIENT WAS ORIENTED IN THE UNIT AND UNIT POLICIES.PATIENT'S RIGHT BOOKLET AND MEDICATIONS BOOKLET INCLUDING ADVISEMENT WAS REVIEW AND GIVEN TO THE PATIENT.
[2022-01-26 16:13] VITALS: BP 141/68
[2022-01-26] MEDS: METOPROLOL TARTRATE 25 MG TABLET PO SCH (17:40)
[2022-01-26] MEDS: Z GUARD REMEDY 4 OZ OINT TP SCH (17:40)
[2022-01-26] MEDS: METFORMIN 500 MG TABLET PO SCH (17:40)
[2022-01-26] MEDS: ATORVASTATIN 10 MG TABLET PO SCH (17:41)
--- NOTE | 2022-01-26 18:00 | NUR ---
RN-NOTES PATIENT BS WAS 202, REFUSED 4 UNITS COVERAGE DESPITE EXPLANATIONS RISK AND BENEFITS. STATED" NO INSULIN FOR ME, MY BLOOD SUGAR IS NORMAL". OFFERED X3
--- NOTE | 2022-01-26 19:12 | NUR ---
RN-NOTES PATIENT LYING IN BED AWAKE,ALERT X3 ,CALM,QUIET ,GUARDED,NO ACUTE DISTRESS NOTED. PATIENT AMBULATORY TO THE BATHROOM STEADY GAIT. ALL NEEDS ATTENDED AND ANTICIPATED. WILL ENDORSE TO INCOMING SHIFT FOR CONTINUITY OF CARE. Addendum: 01/26/22 at 1916 by JAVED MAI RN ACCIDENTALLY DOCUMENTED TO THE WRONG PATIENT.
--- NOTE | 2022-01-26 19:16 | NUR ---
RN-NOTES PATIENT LYING IN BED AWAKE,ALERT X1,NO ACUTE DISTRESS NOTED. NEED MAXIMUM ASSIST WITH ADL'S. SELECTIVE WITH MEDICATIONS. NOTED WITH EASILY ANGRY AND IRRITABLE BEHAVIOR, YELLS AND SCREAMING BEHAVIOR. GOOD MESSI CARE RENDERED. ALL NEEDS ATTENDED AND ANTICIPATED. WILL ENDORSE TO INCOMING SHIFT FOR CONTINUITY OF CARE.
--- NOTE | 2022-01-26 20:10 | NUR ---
RN NOTES :PATIENT AWAKE, ALERT, RESTING IN HER BED NO S/SX OF ACUTE DISTRESS NOTED. UNCOOPERATIVE TO CARE, DISORGNIZED, ANXIOUS ,EASILY AGITATED,GUARDED, FLAT AFFECT WITHDRAWN, ENCOURAGED PT. TO VERBALIZATION OF THOUGHTS AND FEELINGS. SAFETY PRECAUTIONS MAINTAINED. WILL CONTINUE TO MONITOR Q15MIN AND SAFETY BEHAVIOR.
[2022-01-26] MEDS: INSULIN REGULAR, HUMAN 100 UNIT/ML 3 ML VIAL SQ PRN (21:57)
[2022-01-26] MEDS: INSULIN GLARGINE, 100 UNIT/ML CARTRIDGE SQ SCH (22:00)
[2022-01-27] MEDS: GABAPENTIN 100 MG CAPSULE PO SCH ×3 (05:00→21:00)
--- NOTE | 2022-01-27 05:30 | NUR ---
RN-NOTES : REFUSED MEDICATION PATIENT REFUSED NEURONTIN 100MG P.O AT 0500 .OFFERED X3, PT . STARTED SCREAMING , YELLING , VERY UNCOOPERTIVE , PER PT. I DONT WANT TAKE IT.
--- NOTE | 2022-01-27 06:23 | NUR ---
RN NOTES: PT. REFUSED TO BE CHANGE IN [facility] GRE[facility] G[facility] AND SCREAMING YELLING , VERY UNCOOPERTIVE TO CARE.
--- NOTE | 2022-01-27 07:05 | NUR ---
RN-NOTES : REFUSED LABS PATIENT REFUSED AM LABS .ENCOURAGEDX3 , PT . STARTED SCREAMING , YELLING , VERY UNCOOPERTIVE , PER PT. NO BLOOD DRAW.
[2022-01-27] MEDS: BLOOD SUGAR DIAGNOSTIC 1 EACH STRIP IN SCH ×4 (07:30→21:48)
[2022-01-27] MEDS: LEVOTHYROXINE SODIUM 125 MCG TABLET PO SCH (07:30)
[2022-01-27 08:00] VITALS: BP 126/61
--- NOTE | 2022-01-27 08:04 | NUR ---
Refused Blood glucose check. Risks vs benefits explained offered times three and still refused. "Get out of my face". "Get out of my room." "I do not want my blood sugar to be checked. Leave me alone." Resident is sitting in the bed eating breakfast.
[2022-01-27] MEDS: MULTIVIT W/MINERALS 1 TAB TABLET PO SCH (09:00)
[2022-01-27] MEDS: METOPROLOL TARTRATE 25 MG TABLET PO SCH ×2 (09:00→17:00)
[2022-01-27] MEDS: FAMOTIDINE (20 MG) 20 MG TABLET PO SCH (09:00)
[2022-01-27] MEDS: METFORMIN 500 MG TABLET PO SCH ×2 (09:00→17:00)
[2022-01-27] MEDS: LOSARTAN POTASSIUM 50 MG TABLET PO SCH (09:00)
[2022-01-27] MEDS: ASPIRIN 81 MG TAB.CHEW PO SCH (09:00)
[2022-01-27] MEDS: ENOXAPARIN SODIUM 40 MG/0.4 ML DISP.SYRIN SQ SCH (09:00)
[2022-01-27] MEDS: Z GUARD REMEDY 4 OZ OINT TP SCH ×2 (09:00→17:52)
[2022-01-27] MEDS ORDERED: BENZTROPINE MESYLATE (1 MG) 1 MG TABLET PO PRN (10:00)
[2022-01-27] MEDS: QUETIAPINE FUMARATE 25 MG TABLET PO SCH ×2 (10:00→21:00)
[2022-01-27] MEDS: ESCITALOPRAM OXALATE (10 MG) 10 MG TABLET PO SCH (10:00)
[2022-01-27] MEDS: NITROFURANTOIN/MONOHYDRATE MACROCRYSTALS 100 MG CAPSULE PO SCH ×2 (10:00→21:00)
--- NOTE | 2022-01-27 10:48 | NUR ---
RESIDENT REFUSED ALL 0900 MEDICATIONS. RISKS VS BENEFITS EXPLAINED. OFFERED TIMES THREE. "I DO NOT WANT ANYTHING." "GOOD BYE". "I WILL NOT TAKE ANY MEDICATIONS" "LEAVE ME ALONE".
--- NOTE | 2022-01-27 10:50 | NUR ---
REFUSED NITROFURANTOIN, ESCITALOPRAM, QUETIAPINE, RISKS VS BENEFITS EXPLAINED. OFFERED TIMES THREE AND STILL REFUSED. "I ALREADY TOLD YOU I WILL NOT TAKE ANY MEDICINE, LEAVE ME ALONE."
--- NOTE | 2022-01-27 11:13 | NUR ---
RN-CO: PT REFUSED ALL MORNING MEDICATIONS AND LAB WORKS. ENC SEVERAL TIMES BUT SHE GOT AGITATED.
--- NOTE | 2022-01-27 12:36 | NUR ---
REFUSED ALL BLOOD GLUCOSE TO BE CHECKED. REFUSED GABAPENTIN. RISKS VS BENEFITS EXPLAINED OFFERED TIMES THREE AND STILL REFUSED. "I HAVE ALREADY TOLD YOU I DO NOT WANT ANYTHING." "I AM NOT TAKING ANY MEDICATIONS." "GOOD BYE." "I DO NOT WANT MY BLOOD GLUCOSE TO BE CHECKED." "I WANT TO BE LEFT ALONE."
--- NOTE | 2022-01-27 16:03 | NUR ---
RN-CO: PT REFUSED ALL LAB WORKS .
[2022-01-27 16:11] VITALS: BP 130/70
--- NOTE | 2022-01-27 16:16 | NUR ---
RN-CO: PATIENT YELLS AND SCREAMS MOST OF THE TIME AND VERY UNCOOPERATIVE TO CARE.
[2022-01-27] MEDS: ATORVASTATIN 10 MG TABLET PO SCH (17:48)
--- NOTE | 2022-01-27 17:52 | NUR ---
RESIDENT REFUSED BLOOD GLUCOSE MONITORING, 1730 AND 1800 PO MEDICATIONS. RISKS VS BENEFITS EXPLAINED, AND VERBALIZED UNDERSTANDING, RESIDENT WAS EDUCATED IN THE IMPORTANCE OF TAKING ALL HER MEDICATIONS, PATIENT STATED, "I DO NOT CARE, LEAVE ME ALONE, I WILL NOT TAKE ANY MEDICATIONS," "I WILL NOT HAVE MY SUGAR CHECKED," "LEAVE ME ALONE." OFFERED TIMES THREE AND STILL REFUSED.
[2022-01-27 19:58] VITALS: BP 136/67
[2022-01-27 20:11] VITALS: BP 136/67
--- NOTE | 2022-01-27 21:49 | NUR ---
GPS RN NOTE: MEDICATION REFUSAL PATIENT REFUSED ALL SCHEDULED PO MEDICATIONS AND ACCU CHECK TONIGHT, PATIENT GOT VERY AGITATED , STARTED SCREAMING/YELLING AT OFFICE SECRETARY WHEN OFFICE SECRETARY APPROACHED THE PATIENT TO OFFER SCHEDULED MEDICATION AND ACCU CHECK. PATIENT STATED," GO AWAY, LEAVE ME ALONE, YOU DON'T KNOW ANYTHING." PATIENT IS EXTREMELY NON COMPLAINT WITH MEDICATIONS AND CARE DESPITE OF RISKS AND BENEFITS EXPLANATIONS.
[2022-01-27] MEDS: INSULIN GLARGINE, 100 UNIT/ML CARTRIDGE SQ SCH (22:00)
--- NOTE | 2022-01-27 22:03 | NUR ---
PATIENT REFUSED ACCU CHECK AND LANTUS INSULIN X 3 AND IS UNCOOPERATIVE AND NON COMPLAINT WITH MEDICATIONS.
--- NOTE | 2022-01-27 22:35 | NUR ---
PATIENT REFUSED WEEKLY SKIN ASSESSMENT, UNCOOPERATIVE, STARTED YELLING/SCREAMING AT STAFF AND ASKED THE NURSE TO LEAVE HER ROOM. PATIENT IS EASILY AGITATED, ANXIOUS, RESTLESS, SCREAMS, YELLS AT STAFF WHEN APPROACHED.
[2022-01-28] MEDS: GABAPENTIN 100 MG CAPSULE PO SCH ×3 (05:00→21:00)
--- NOTE | 2022-01-28 05:04 | NUR ---
GPS RN NOTE: PATIENT REFUSED EKG DESPITE OF RISKS AND BENEFITS EXPLANATIONS. PATIENT CONTINUED TO REFUSE AND YELLED AT PRINT JOURNALIST.
--- NOTE | 2022-01-28 05:06 | NUR ---
GPS RN NOTE: MEDICATION REFUSAL PATIENT REFUSED GABAPENTIN SCHEDULED DESPITE OF RISKS AND BENEFITS EXPLANATIONS X 3.
--- NOTE | 2022-01-28 05:22 | NUR ---
PATIENT REFUSED TO HAVE AN EKG DONE. NURSE IS AWARE.
[2022-01-28] MEDS: BLOOD SUGAR DIAGNOSTIC 1 EACH STRIP IN SCH ×4 (07:30→21:40)
[2022-01-28] MEDS: LEVOTHYROXINE SODIUM 125 MCG TABLET PO SCH (07:30)
--- NOTE | 2022-01-28 07:49 | NUR ---
RN-CO: DURING MORNING ROUNDS, PT STATED " DON'T GIVE ME ANY MEDICATIONS! I WILL NOT TAKE IT! PATIENT HAS INTENSE EYE CONTACT AND PRESSURED SPEECH. WITHOUT ANY PROVOCATIONS.
[2022-01-28 08:00] VITALS: BP 137/75
[2022-01-28] MEDS: ASPIRIN 81 MG TAB.CHEW PO SCH (08:02)
[2022-01-28] MEDS: LOSARTAN POTASSIUM 50 MG TABLET PO SCH (08:02)
[2022-01-28] MEDS: METFORMIN 500 MG TABLET PO SCH ×2 (08:03→16:56)
[2022-01-28] MEDS: NITROFURANTOIN/MONOHYDRATE MACROCRYSTALS 100 MG CAPSULE PO SCH ×2 (08:03→21:00)
[2022-01-28] MEDS: ESCITALOPRAM OXALATE (10 MG) 10 MG TABLET PO SCH (08:03)
[2022-01-28] MEDS: FAMOTIDINE (20 MG) 20 MG TABLET PO SCH (08:03)
[2022-01-28] MEDS: METOPROLOL TARTRATE 25 MG TABLET PO SCH ×2 (08:03→16:56)
[2022-01-28] MEDS: MULTIVIT W/MINERALS 1 TAB TABLET PO SCH (08:04)
[2022-01-28] MEDS: QUETIAPINE FUMARATE 25 MG TABLET PO SCH ×2 (08:04→21:00)
[2022-01-28] MEDS: ENOXAPARIN SODIUM 40 MG/0.4 ML DISP.SYRIN SQ SCH (08:04)
--- NOTE | 2022-01-28 08:14 | NUR ---
VINICIO Initial Discharge Note: Patient currently resides at [facility] located at [id number] [place] [id number]; ). VINICIO contacted Reji esqueda ([phone]) and he stated he would let this newspaper writer know if pt is welcomed back. VINICIO will work with the MD, treatment team, and family to help coordinate appropriate discharge.
--- NOTE | 2022-01-28 08:15 | NUR ---
VINICIO Clinical Note: Pt placed on a 5150 hold for GD, danger to others, and danger to self. Pt was aggressive at [facility] and was non compliant with her medications. Pt was hitting staff. Patient currently resides at [facility] located at [id number] [place], [place] [id number]; ). VINICIO contacted Reji esqueda ([phone]) and he stated he would let this ad writer know if pt is welcomed back.
--- NOTE | 2022-01-28 08:15 | NUR ---
Treatment Plan: Pt refused to sign treatment plan due to being aggressive.
[2022-01-28] MEDS: Z GUARD REMEDY 4 OZ OINT TP SCH ×2 (08:49→16:26)
--- NOTE | 2022-01-28 09:09 | NUR ---
RN-CO; Notified Dr Chirinos regarding patient's refusal of Zyprexa and Depakote x 2 days.
--- NOTE | 2022-01-28 10:08 | NUR ---
RN-CO: PATIENT DENIED PAIN AND DISCOMFORTS, UNMOTIVATED, SHE HAS ANGRY AFFECT AND PRESSURED SPEECH. PT ALSO HAS INTENSE EYE CONTACT. SHE REFUSED ALL HER MEDICATIONS INCLUDING BLOOD SUGAR CHECK. SHE GOT AGITATED WHEN I ASKED HER SHE NEEDS TO TAKE HER MEDICATIONS. I WILL CONTINUE TO MONITOR, KEEP HER SAFE AND NOTIFY MD.
--- NOTE | 2022-01-28 10:52 | NUR ---
ROBCO; PT IS ALSO PARANOID, SHE BELIEVES THAT THE Z GUARD THAT WE APPLY TO HER PERIANAL AREA IS FOR "PROSTITUTE." PT NOTED YELLING AND SCOLDING AT UNSEEN OTHERS.
--- NOTE | 2022-01-28 11:27 | NUR ---
VINICIO Family Contact: SW contacted pt's friend MARLY Villar ([phone]) and left and a detailed voicemail of pt's admission. SW stated she would be getting her stabilization and then will return back to [facility]. Family and pt are familiar to this journalists and other writers pt has been here at [facility] multiple times.
--- NOTE | 2022-01-28 11:39 | NUR ---
DPOA: SW received document of Aurea ([phone]) being pt's DPOA. SW placed it in the chart.
--- NOTE | 2022-01-28 12:15 | NUR ---
RNJuarezCO: PT REFUSED BLOOD SUGAR CHECK.
--- NOTE | 2022-01-28 12:43 | NUR ---
RN-CO: PT REFUSED NEURONTIN, SHE STATED " IT MAKES MY FOOT FEEL LIKE A BRICK." EXPLAINED THE BENEFIT BUT GOT IRRITATED MORE.
--- NOTE | 2022-01-28 14:19 | NUR ---
VINICIO Family Contact: VINICIO contacted pt's friend MARLY Villar ([phone]) and contacted this board writer and discussed pt's placement and current condition. Aurea would want pt to return back to [facility] when stable.
[2022-01-28 16:00] VITALS: BP 150/81
--- NOTE | 2022-01-28 16:57 | NUR ---
RN-CO: EVERYTIME HER MEDICATIONS IS OFFERED TO HER, PT GETS AGITATED AND SCREAMS, " I DON'T NEEDY ANY MEDICATIONS AND BLOOD SUGAR CHECK!"
[2022-01-28] MEDS: ATORVASTATIN 10 MG TABLET PO SCH (17:10)
[2022-01-28 20:00] VITALS: BP 147/76
[2022-01-28 20:20] VITALS: BP 147/76
[2022-01-28] MEDS: INSULIN GLARGINE, 100 UNIT/ML CARTRIDGE SQ SCH (21:40)
--- NOTE | 2022-01-28 21:40 | NUR ---
GPS RN NOTE: MEDICATION REFUSAL PATIENT REFUSED ALL SCHEDULED PO MEDICATIONS AND ACCU CHECK TONIGHT, PATIENT GETS EXTREMELY AGITATE, STARTED SCREAMING/YELLING AT DYE MACHINE TENDER WHEN DYE MACHINE TENDER APPROACHED THE PATIENT TO OFFER SCHEDULED MEDICATION AND ACCU CHECK. OFFERED X 3 BUT PATIENT IS NON COMPLAINT WITH MEDICATIONS AND CARE DESPITE OF RISKS AND BENEFITS EXPLANATIONS.
[2022-01-29] MEDS: GABAPENTIN 100 MG CAPSULE PO SCH ×3 (05:00→21:00)
--- NOTE | 2022-01-29 07:08 | NUR ---
WOUND CARE CONSULT: PT PRESENTS WITH RED RASH TO PERINEAL AREAS AND BUTTOCKS, PRESENT ON ADMISSION. RECOMMENDATIONS MADE FOR SKIN PROTECTION. DISCUSSED WITH NURSING STAFF. MD IN AGREEMENT WITH PLAN OF CARE.
[2022-01-29] MEDS: LEVOTHYROXINE SODIUM 125 MCG TABLET PO SCH (07:30)
[2022-01-29] MEDS: BLOOD SUGAR DIAGNOSTIC 1 EACH STRIP IN SCH ×4 (07:30→22:00)
[2022-01-29 08:00] VITALS: BP 145/75
[2022-01-29] MEDS: ASPIRIN 81 MG TAB.CHEW PO SCH (08:55)
[2022-01-29] MEDS: LOSARTAN POTASSIUM 50 MG TABLET PO SCH (08:55)
[2022-01-29] MEDS: METFORMIN 500 MG TABLET PO SCH ×2 (08:55→16:13)
[2022-01-29] MEDS: METOPROLOL TARTRATE 25 MG TABLET PO SCH ×2 (08:56→16:13)
[2022-01-29] MEDS: ESCITALOPRAM OXALATE (10 MG) 10 MG TABLET PO SCH (08:56)
[2022-01-29] MEDS: NITROFURANTOIN/MONOHYDRATE MACROCRYSTALS 100 MG CAPSULE PO SCH (08:57)
[2022-01-29] MEDS: FAMOTIDINE (20 MG) 20 MG TABLET PO SCH (08:57)
[2022-01-29] MEDS: QUETIAPINE FUMARATE 25 MG TABLET PO SCH ×2 (08:57→21:00)
[2022-01-29] MEDS: MULTIVIT W/MINERALS 1 TAB TABLET PO SCH (08:57)
[2022-01-29] MEDS: ENOXAPARIN SODIUM 40 MG/0.4 ML DISP.SYRIN SQ SCH (08:58)
[2022-01-29] MEDS: CLOTRIMAZOLE/BETAMETASONE DIPROPIONATE 15 GM TUBE TP SCH ×2 (08:59→16:13)
[2022-01-29] MEDS: Z GUARD REMEDY 4 OZ OINT TP SCH ×2 (09:01→16:13)
[2022-01-29] MEDS: AMOX/CLAVULANATE 875 MG TABLET PO SCH ×2 (11:30→21:00)
[2022-01-29 16:00] VITALS: BP 158/69
[2022-01-29] MEDS: ATORVASTATIN 10 MG TABLET PO SCH (17:08)
[2022-01-29 19:50] VITALS: BP 153/90
[2022-01-29 20:10] VITALS: BP 153/90
--- NOTE | 2022-01-29 21:45 | NUR ---
GPS RN NOTES: MEDICATION REFUSAL PATIENT REFUSED 2100 NIGHT TIME SCHEDULED MEDS. DESPITE OF EXPLANATION THE IMPORTANCE OF BEING COMPLIANT. PT BECAME AGITATED, ANXIOUS AND RESTLESS, STARTED YELLING AT BANKING SERVICES ADVISOR. OFFERED X3. PATIENT CONTINUED TO REFUSE. WILL CONTINUE TO MONITOR PATIENT'S SAFETY.
[2022-01-29] MEDS: INSULIN GLARGINE, 100 UNIT/ML CARTRIDGE SQ SCH (22:00)
--- NOTE | 2022-01-29 22:09 | NUR ---
PATIENT REFUSED ACCU CHECK AND LANTUS INSULIN X 3 AND IS UNCOOPERATIVE AND NON COMPLAINT WITH MEDICATIONS.
[2022-01-30] MEDS: GABAPENTIN 100 MG CAPSULE PO SCH ×3 (05:00→20:35)
[2022-01-30] MEDS: LEVOTHYROXINE SODIUM 125 MCG TABLET PO SCH (07:30)
[2022-01-30] MEDS: BLOOD SUGAR DIAGNOSTIC 1 EACH STRIP IN SCH ×4 (07:30→21:15)
[2022-01-30 08:00] VITALS: BP 129/74
[2022-01-30] MEDS: LOSARTAN POTASSIUM 50 MG TABLET PO SCH (08:43)
[2022-01-30] MEDS: ASPIRIN 81 MG TAB.CHEW PO SCH (08:43)
[2022-01-30] MEDS: AMOX/CLAVULANATE 875 MG TABLET PO SCH ×2 (08:43→20:35)
[2022-01-30] MEDS: METFORMIN 500 MG TABLET PO SCH ×2 (08:44→16:09)
[2022-01-30] MEDS: FAMOTIDINE (20 MG) 20 MG TABLET PO SCH (08:44)
[2022-01-30] MEDS: METOPROLOL TARTRATE 25 MG TABLET PO SCH ×2 (08:44→16:09)
[2022-01-30] MEDS: QUETIAPINE FUMARATE 25 MG TABLET PO SCH ×2 (08:44→20:31)
[2022-01-30] MEDS: ESCITALOPRAM OXALATE (10 MG) 10 MG TABLET PO SCH (08:44)
[2022-01-30] MEDS: ENOXAPARIN SODIUM 40 MG/0.4 ML DISP.SYRIN SQ SCH (08:45)
[2022-01-30] MEDS: Z GUARD REMEDY 4 OZ OINT TP SCH ×2 (08:45→16:11)
[2022-01-30] MEDS: MULTIVIT W/MINERALS 1 TAB TABLET PO SCH (08:45)
[2022-01-30] MEDS: CLOTRIMAZOLE/BETAMETASONE DIPROPIONATE 15 GM TUBE TP SCH ×2 (08:45→16:10)
--- NOTE | 2022-01-30 09:57 | NUR ---
RN-CO: PATIENT DENIED PAIN AND DISCOMFORTS. TURNED AND REPO Q 2 HOURS. REFUSED ACCUCHECK AND ALL HER MEDICATIONS . SHE STATED AND YELLED, " I DON'T NEED ALL THOSE MEDICATIONS!" GOOD PERICARE RENDERED. OFFERED FLUIDS. WE WILL CONTINUE TO MONITOR AND KEEP HER SAFE.
--- NOTE | 2022-01-30 11:01 | NUR ---
Individual Therapy: SW attempted to conduct brief therapy with pt, however, pt was uncooperative and was yelling stating "get out".
--- NOTE | 2022-01-30 12:27 | NUR ---
TIM-CO: GABINO HEARING WILL BE AT 1300.
--- NOTE | 2022-01-30 13:32 | NUR ---
RN-CO: RECEIVED AN ORDER FROM DR VILLEGAS, TO GIVE HALDOL 2.5 MG IM NEEDED FOR EVERY REFUSAL OF SEROQUEL EVERY 12 HOURS.
[2022-01-30 16:00] VITALS: BP_SYST 115; BP_SYST 131; BP_DIAS 56; BP_DIAS 83
[2022-01-30] MEDS ORDERED: HALOPERIDOL LACTATE INJ 5 MG/ML VIAL IM PRN (18:00)
[2022-01-30] MEDS: ATORVASTATIN 10 MG TABLET PO SCH (18:00)
--- NOTE | 2022-01-30 19:15 | NUR ---
GPS RN NOTES RECEIVED PATIENT IN BED AWAKE, ALERT AND ORIENTED X1, NO S/SX OF ACUTE DISTRESS NOTED. PATIENT REMAINS IRRITABLE, LABILE, BLUNTED AFFECT, UNCOOPERATIVE TO CARE. DENIES SI/HI/AVH AT THIS TIME. SAFETY PRECAUTIONS MAINTAINED. WILL CONTINUE TO MONITOR Q15MIN ROUNDS FOR SAFETY AND BEHAVIOR.
[2022-01-30] MEDS: INSULIN GLARGINE, 100 UNIT/ML CARTRIDGE SQ SCH (21:15)
--- NOTE | 2022-01-30 22:00 | NUR ---
GPS RN NOTES PATIENT TOOK SEROQUEL PO DOSE FOR TONIGHT. HOWEVER PATIENT REFUSED AUGMENTIN, NEURONTIN AND ACCU CHECK. DESPITE OF EXPLANATION THE IMPORTANCE OF BEING MEDICATION COMPLIANT. PATIENT BECAME AGITATED. OFFERED X3. PATIENT CONTINUED TO REFUSE.
[2022-01-31] MEDS: GABAPENTIN 100 MG CAPSULE PO SCH ×3 (05:00→21:00)
[2022-01-31] MEDS: BLOOD SUGAR DIAGNOSTIC 1 EACH STRIP IN SCH ×4 (07:30→21:18)
[2022-01-31] MEDS: LEVOTHYROXINE SODIUM 125 MCG TABLET PO SCH (07:30)
--- NOTE | 2022-01-31 07:47 | NUR ---
Gabapentin due for 5:00AM not given by the outgoing nurse as pt. refused. Meditech is down.
[2022-01-31 08:00] VITALS: BP 156/84
[2022-01-31] MEDS: QUETIAPINE FUMARATE 25 MG TABLET PO SCH ×2 (08:47→21:16)
[2022-01-31] MEDS: METFORMIN 500 MG TABLET PO SCH ×2 (09:00→17:00)
[2022-01-31] MEDS: METOPROLOL TARTRATE 25 MG TABLET PO SCH ×2 (09:00→17:00)
[2022-01-31] MEDS: LOSARTAN POTASSIUM 50 MG TABLET PO SCH (09:00)
[2022-01-31] MEDS: ESCITALOPRAM OXALATE (10 MG) 10 MG TABLET PO SCH (09:00)
[2022-01-31] MEDS: MULTIVIT W/MINERALS 1 TAB TABLET PO SCH (09:00)
[2022-01-31] MEDS: ENOXAPARIN SODIUM 40 MG/0.4 ML DISP.SYRIN SQ SCH (09:00)
[2022-01-31] MEDS: FAMOTIDINE (20 MG) 20 MG TABLET PO SCH (09:00)
[2022-01-31] MEDS: Z GUARD REMEDY 4 OZ OINT TP SCH ×2 (09:00→17:09)
[2022-01-31] MEDS: CLOTRIMAZOLE/BETAMETASONE DIPROPIONATE 15 GM TUBE TP SCH ×2 (09:00→17:00)
[2022-01-31] MEDS: AMOX/CLAVULANATE 875 MG TABLET PO SCH ×2 (09:00→21:00)
[2022-01-31] MEDS: ASPIRIN 81 MG TAB.CHEW PO SCH (09:00)
--- NOTE | 2022-01-31 10:30 | NUR ---
RN Notes: Received pt. asleep in bed, breathing is even and unlabored. Ate 100% for breakfast, pt. is irritable, uncooperative to care, verbally abusive, screaming and yelling. Pt. is on Riesed and took only Seroquel and refused the rest of the po meds and stating that it is not her meds. Pt. refused for accu check and said her BS is normal. Encouraged to verbalize feelings and motivated to attend group activity. Needs attended and will continue to monitor for safety.
--- NOTE | 2022-01-31 14:20 | NUR ---
VINICIO Family Contact: VINICIO received a call from MARLY Villar ([phone]) and wanted updates. VINICIO notified that pt is currently riesed and is aware of the process.
[2022-01-31 16:00] VITALS: BP 133/73
[2022-01-31] MEDS: ATORVASTATIN 10 MG TABLET PO SCH (18:00)
--- NOTE | 2022-01-31 19:15 | NUR ---
GPS RN NOTES RECEIVED PATIENT IN BED AWAKE, ALERT AND ORIENTED X1, NO S/SX OF ACUTE DISTRESS NOTED. PATIENT REMAINS IRRITABLE, LABILE, BLUNTED AFFECT, UNCOOPERATIVE TO CARE, DEMANDING. DENIES SI/HI/AVH AT THIS TIME. SAFETY PRECAUTIONS IN PLACE. WILL CONTINUE TO MONITOR Q15MIN ROUNDS FOR SAFETY AND BEHAVIOR.
[2022-01-31 20:00] VITALS: BP 148/75
[2022-01-31] MEDS: INSULIN GLARGINE, 100 UNIT/ML CARTRIDGE SQ SCH (21:18)
--- NOTE | 2022-01-31 22:00 | NUR ---
GPS RN NOTES PATIENT TOOK SEROQUEL PO DOSE FOR TONIGHT. HOWEVER, PATIENT REFUSED AUGMENTIN, NEURONTIN AND ACCU CHECK. DESPITE OF EXPLANATION THE IMPORTANCE OF MEDICATION COMPLIANCE. PATIENT BECAME AGITATED. OFFERED X3 BUT PATIENT CONTINUED TO REFUSE.
[2022-02-01] MEDS: GABAPENTIN 100 MG CAPSULE PO SCH ×3 (05:00→20:44)
--- NOTE | 2022-02-01 05:45 | NUR ---
Patient refused 0500 Neurontin due to increased irritability. Patient states "No! I don't want it, this medication could kill me!" Offered x3, but patient continues to refuse.
[2022-02-01] MEDS: LEVOTHYROXINE SODIUM 125 MCG TABLET PO SCH (07:30)
[2022-02-01] MEDS: BLOOD SUGAR DIAGNOSTIC 1 EACH STRIP IN SCH ×4 (07:30→21:44)
[2022-02-01 08:00] VITALS: BP 123/58
[2022-02-01] MEDS: FAMOTIDINE (20 MG) 20 MG TABLET PO SCH (09:00)
[2022-02-01] MEDS: ASPIRIN 81 MG TAB.CHEW PO SCH (09:00)
[2022-02-01] MEDS: ESCITALOPRAM OXALATE (10 MG) 10 MG TABLET PO SCH (09:00)
[2022-02-01] MEDS: ENOXAPARIN SODIUM 40 MG/0.4 ML DISP.SYRIN SQ SCH (09:00)
[2022-02-01] MEDS: METFORMIN 500 MG TABLET PO SCH ×2 (09:00→16:09)
[2022-02-01] MEDS: CLOTRIMAZOLE/BETAMETASONE DIPROPIONATE 15 GM TUBE TP SCH ×2 (09:00→16:09)
[2022-02-01] MEDS: AMOX/CLAVULANATE 875 MG TABLET PO SCH ×2 (09:00→20:44)
[2022-02-01] MEDS: METOPROLOL TARTRATE 25 MG TABLET PO SCH ×2 (09:00→16:09)
[2022-02-01] MEDS: QUETIAPINE FUMARATE 25 MG TABLET PO SCH ×3 (09:00→20:44)
[2022-02-01] MEDS: LOSARTAN POTASSIUM 50 MG TABLET PO SCH (09:00)
[2022-02-01] MEDS: MULTIVIT W/MINERALS 1 TAB TABLET PO SCH (09:00)
[2022-02-01] MEDS: Z GUARD REMEDY 4 OZ OINT TP SCH ×2 (09:32→16:20)
--- NOTE | 2022-02-01 10:00 | NUR ---
RN Notes: Received pt. awake in bed, suspicious and responding minimally to staff. Ate 80% for breakfast, pt. is irritable,verbally abusive, screaming and yelling. Pt. refused to take all the meds including the psychotropic meds, was explained on the importance and said it's her meds and started screaming and pt. is on Riesed and IM of Haldol given. Pt. refused for accu check and said her BS is normal. Encouraged to verbalize feelings and motivated to attend group activity. Morning care rendered and will continue to monitor for safety.
[2022-02-01 16:00] VITALS: BP 123/58
[2022-02-01] MEDS: ATORVASTATIN 10 MG TABLET PO SCH (18:00)
[2022-02-01] MEDS: INSULIN GLARGINE, 100 UNIT/ML CARTRIDGE SQ SCH (21:44)
[2022-02-02] MEDS: GABAPENTIN 100 MG CAPSULE PO SCH ×3 (05:00→21:00)
[2022-02-02] MEDS: LEVOTHYROXINE SODIUM 125 MCG TABLET PO SCH (07:30)
[2022-02-02] MEDS: BLOOD SUGAR DIAGNOSTIC 1 EACH STRIP IN SCH ×4 (07:30→21:32)
[2022-02-02 08:00] VITALS: BP 131/76
[2022-02-02] MEDS: QUETIAPINE FUMARATE 25 MG TABLET PO SCH ×2 (08:34→21:32)
[2022-02-02] MEDS: MULTIVIT W/MINERALS 1 TAB TABLET PO SCH (09:00)
[2022-02-02] MEDS: ESCITALOPRAM OXALATE (10 MG) 10 MG TABLET PO SCH (09:00)
[2022-02-02] MEDS: METOPROLOL TARTRATE 25 MG TABLET PO SCH ×2 (09:00→17:00)
[2022-02-02] MEDS: ASPIRIN 81 MG TAB.CHEW PO SCH (09:00)
[2022-02-02] MEDS: LOSARTAN POTASSIUM 50 MG TABLET PO SCH (09:00)
[2022-02-02] MEDS: METFORMIN 500 MG TABLET PO SCH ×2 (09:00→17:00)
[2022-02-02] MEDS: FAMOTIDINE (20 MG) 20 MG TABLET PO SCH (09:00)
[2022-02-02] MEDS: ENOXAPARIN SODIUM 40 MG/0.4 ML DISP.SYRIN SQ SCH (09:00)
[2022-02-02] MEDS: AMOX/CLAVULANATE 875 MG TABLET PO SCH ×2 (09:00→21:00)
[2022-02-02] MEDS: CLOTRIMAZOLE/BETAMETASONE DIPROPIONATE 15 GM TUBE TP SCH ×2 (09:29→17:27)
[2022-02-02] MEDS: Z GUARD REMEDY 4 OZ OINT TP SCH ×2 (09:29→17:27)
--- NOTE | 2022-02-02 09:45 | NUR ---
RN Notes: Received pt. awake in bed, suspicious and responding minimally to staffs. Ate 100% for breakfast, pt. refused for BS checked and telling her BS is normal, pt refused to take the the rest of all the meds including the Lovenox despite explanation on the importance and said that it's not her meds. Pt. took only the Seroquel po and shouted after taking. Pt. is easily got irritated, verbally abusive to staffs and with an angry mood. Morning care render and skin ointment applied. Needs attended and will continue to monitor for safety.
[2022-02-02 16:00] VITALS: BP 118/70
[2022-02-02] MEDS: ATORVASTATIN 10 MG TABLET PO SCH (18:00)
--- NOTE | 2022-02-02 19:15 | NUR ---
GPS RN NOTES RECEIVED PATIENT IN BED AWAKE, ALERT AND ORIENTED X1, NO S/SX OF ACUTE DISTRESS NOTED. PATIENT REMAINS LABILE, BLUNTED AFFECT, IRRITABLE, UNCOOPERATIVE TO CARE. DENIES SI/HI/AVH AT THIS TIME. SAFETY PRECAUTIONS IN PLACE. WILL CONTINUE TO MONITOR Q15MIN ROUNDS FOR SAFETY AND BEHAVIOR.
[2022-02-02 20:44] VITALS: BP 130/63
[2022-02-02] MEDS: INSULIN GLARGINE, 100 UNIT/ML CARTRIDGE SQ SCH (21:32)
--- NOTE | 2022-02-02 21:43 | NUR ---
GPS RN NOTES PATIENT TOOK SEROQUEL PO DOSE FOR TONIGHT. HOWEVER, PATIENT REFUSED AUGMENTIN, NEURONTIN AND ACCU CHECK. DESPITE OF EXPLANATION THE IMPORTANCE OF MEDICATION COMPLIANCE. PATIENT BECAME AGITATED. OFFERED X3, BUT PATIENT CONTINUED TO REFUSE.
[2022-02-03] MEDS: GABAPENTIN 100 MG CAPSULE PO SCH ×3 (05:00→21:00)
--- NOTE | 2022-02-03 05:50 | NUR ---
GPS RN NOTE: MEDICATION REFUSAL PATIENT REFUSED GABAPENTIN SCHEDULED DESPITE OF RISKS AND BENEFITS EXPLANATIONS X3. PATIENT CONTINUED TO REFUSE. PATIENT STATED, "LEAVE ME ALONE".
[2022-02-03] MEDS: BLOOD SUGAR DIAGNOSTIC 1 EACH STRIP IN SCH ×4 (07:30→22:20)
[2022-02-03] MEDS: LEVOTHYROXINE SODIUM 125 MCG TABLET PO SCH (07:30)
--- NOTE | 2022-02-03 07:30 | NUR ---
GPS RN OPENING NOTE RECEIVED PATIENT IN BED ASLEEP, EASILY AROUSED. PT ALERT AND ORIENTED X1, NO S/SX OF ACUTE DISTRESS NOTED. PATIENT REMAINS LABILE, BLUNTED AFFECT, IRRITABLE, UNCOOPERATIVE TO CARE. DENIES SI/HI/AVH AT THIS TIME. SAFETY PRECAUTIONS IN PLACE. WILL CONTINUE TO MONITOR Q15MIN ROUNDS FOR SAFETY AND BEHAVIOR.
[2022-02-03 08:00] VITALS: BP_SYST 110; BP_SYST 111; BP_DIAS 63; BP_DIAS 64
--- NOTE | 2022-02-03 08:25 | NUR ---
GPS RN NOTE PATIENT REFUSED LEVOTHYROXINE AND ACCUCHECK SCHEDULED AT 0730. EXPLAINED RISK AND BENEFITS X3, STILL STRONGLY REFUSED. PT SCREAMED AND STATED, "I DON'T WANT IT!" "LEAVE ME ALONE"!.
[2022-02-03] MEDS: MULTIVIT W/MINERALS 1 TAB TABLET PO SCH (09:00)
[2022-02-03] MEDS: METOPROLOL TARTRATE 25 MG TABLET PO SCH ×2 (09:00→17:00)
[2022-02-03] MEDS: ENOXAPARIN SODIUM 40 MG/0.4 ML DISP.SYRIN SQ SCH (09:00)
[2022-02-03] MEDS: ASPIRIN 81 MG TAB.CHEW PO SCH (09:00)
[2022-02-03] MEDS: ESCITALOPRAM OXALATE (10 MG) 10 MG TABLET PO SCH (09:00)
[2022-02-03] MEDS: AMOX/CLAVULANATE 875 MG TABLET PO SCH ×2 (09:00→21:00)
[2022-02-03] MEDS: LOSARTAN POTASSIUM 50 MG TABLET PO SCH (09:00)
[2022-02-03] MEDS: METFORMIN 500 MG TABLET PO SCH ×2 (09:00→17:00)
[2022-02-03] MEDS: FAMOTIDINE (20 MG) 20 MG TABLET PO SCH (09:00)
[2022-02-03] MEDS: QUETIAPINE FUMARATE 25 MG TABLET PO SCH ×2 (09:34→22:02)
[2022-02-03] MEDS: CLOTRIMAZOLE/BETAMETASONE DIPROPIONATE 15 GM TUBE TP SCH ×2 (09:39→17:14)
[2022-02-03] MEDS: Z GUARD REMEDY 4 OZ OINT TP SCH ×2 (09:39→17:14)
--- NOTE | 2022-02-03 09:45 | NUR ---
GPS RN NOTE PATIENT REFUSED ALL MEDICATIONS SCHEDULED AT 0900 EXCEPT SEROQUEL. EXPLAINED RISK AND BENEFITS X3, STILL STRONGLY REFUSED. PT SCREAMED AND STATED, "I DO NOT NEED THOSE MEDICATIONS, GET OUT!".
--- NOTE | 2022-02-03 12:03 | NUR ---
GPS RN NOTE PATIENT REFUSED ACCUCHECK SCHEDULED AT 1200. EXPLAINED RISK AND BENEFITS X3, STILL STRONGLY REFUSED.
--- NOTE | 2022-02-03 13:11 | NUR ---
GPS RN NOTE PATIENT IN BED AWAKE, ALERT AND ORIENTED X1, NO S/SX OF ACUTE DISTRESS NOTED. PATIENT REMAINS LABILE, BLUNTED AFFECT, IRRITABLE, UNCOOPERATIVE TO CARE. PT REFUSED HER MEDICATION GABAPENTIN THAT WAS SCHEDULED AT 1300. EXPLAINED RISK AND BENEFITS X3. STILL STRONGLY REFUSED. DENIES SI/HI/AVH AT THIS TIME. SAFETY PRECAUTIONS IN PLACE. WILL CONTINUE TO MONITOR Q15MIN ROUNDS FOR SAFETY AND BEHAVIOR.
[2022-02-03 16:00] VITALS: BP 106/76
--- NOTE | 2022-02-03 17:16 | NUR ---
GPS RN NOTE PATIENT REFUSED ALL MEDICATIONS SCHEDULED AT 1700 AND ACCUCHECK SCHEDULED AT 1730. EXPLAINED RISK AND BENEFITS X3, STILL STRONGLY REFUSED. PT SCREAMED AND STATED, "LEAVE ME ALONE"!.
[2022-02-03] MEDS: ATORVASTATIN 10 MG TABLET PO SCH (18:00)
--- NOTE | 2022-02-03 18:19 | NUR ---
GPS RN NOTE PATIENT REFUSED ATORVASTATIN SCHEDULED AT 1800. EXPLAINED RISK AND BENEFITS X3, STILL STRONGLY REFUSED. PT SCREAMED "NO"!.
[2022-02-03 19:53] VITALS: BP_SYST 125; BP_SYST 154; BP_DIAS 61; BP_DIAS 75
[2022-02-03] MEDS: INSULIN GLARGINE, 100 UNIT/ML CARTRIDGE SQ SCH (22:00)
[2022-02-04] MEDS: GABAPENTIN 100 MG CAPSULE PO SCH ×3 (05:00→21:00)
[2022-02-04] MEDS: LEVOTHYROXINE SODIUM 125 MCG TABLET PO SCH (07:22)
[2022-02-04] MEDS: BLOOD SUGAR DIAGNOSTIC 1 EACH STRIP IN SCH ×4 (07:22→21:38)
[2022-02-04 08:00] VITALS: BP 138/85
[2022-02-04] MEDS: QUETIAPINE FUMARATE 25 MG TABLET PO SCH ×2 (08:13→21:33)
[2022-02-04] MEDS: ASPIRIN 81 MG TAB.CHEW PO SCH (08:14)
[2022-02-04] MEDS: ESCITALOPRAM OXALATE (10 MG) 10 MG TABLET PO SCH (08:14)
[2022-02-04] MEDS: METOPROLOL TARTRATE 25 MG TABLET PO SCH ×2 (08:14→16:08)
[2022-02-04] MEDS: LOSARTAN POTASSIUM 50 MG TABLET PO SCH (08:14)
[2022-02-04] MEDS: METFORMIN 500 MG TABLET PO SCH ×2 (08:14→16:08)
[2022-02-04] MEDS: AMOX/CLAVULANATE 875 MG TABLET PO SCH ×2 (08:14→21:00)
[2022-02-04] MEDS: ENOXAPARIN SODIUM 40 MG/0.4 ML DISP.SYRIN SQ SCH (08:15)
[2022-02-04] MEDS: MULTIVIT W/MINERALS 1 TAB TABLET PO SCH (08:15)
[2022-02-04] MEDS: FAMOTIDINE (20 MG) 20 MG TABLET PO SCH (08:15)
[2022-02-04] MEDS: Z GUARD REMEDY 4 OZ OINT TP SCH ×2 (08:17→16:12)
[2022-02-04] MEDS: CLOTRIMAZOLE/BETAMETASONE DIPROPIONATE 15 GM TUBE TP SCH ×2 (08:18→17:00)
--- NOTE | 2022-02-04 10:04 | NUR ---
RN-CO:PATIENT IS RIESED, REFUSED ALL HER PO MEDICATIONS AND ACCUCHECK EXCEPT HER SEROQUEL PO. SHE YELLS AND SCREAMS IF SHE GETS AGITATED AND NEEDS HELP. SHE REFUSED TO GO OUT FROM HER ROOM AND GO TO ACTIVITY ROOM. SHE HAS PERIODS OF BEING COMBATIVE TO CARE. WE GAVE GOOD PERICARE AND WILL TURN HER Q 2 HOURS.WE WILL OFFER FOOD AND FLUIDS OFTEN.
--- NOTE | 2022-02-04 11:33 | NUR ---
RN-CO: PT REFUSED ACCUCHECK, YELLED AT THE RN " I DON'T NEED THAT!" .
[2022-02-04 16:00] VITALS: BP 130/61
[2022-02-04] MEDS: ATORVASTATIN 10 MG TABLET PO SCH (17:32)
[2022-02-04 19:52] VITALS: BP 122/74
[2022-02-04] MEDS: INSULIN GLARGINE, 100 UNIT/ML CARTRIDGE SQ SCH (21:39)
[2022-02-05] MEDS: GABAPENTIN 100 MG CAPSULE PO SCH ×3 (05:00→21:00)
[2022-02-05] MEDS: LEVOTHYROXINE SODIUM 125 MCG TABLET PO SCH (07:30)
[2022-02-05] MEDS: BLOOD SUGAR DIAGNOSTIC 1 EACH STRIP IN SCH ×4 (07:30→21:08)
[2022-02-05 08:00] VITALS: BP 125/67
[2022-02-05] MEDS: ENOXAPARIN SODIUM 40 MG/0.4 ML DISP.SYRIN SQ SCH (09:00)
[2022-02-05] MEDS: ESCITALOPRAM OXALATE (10 MG) 10 MG TABLET PO SCH (09:00)
[2022-02-05] MEDS: METOPROLOL TARTRATE 25 MG TABLET PO SCH ×2 (09:00→16:28)
[2022-02-05] MEDS: LOSARTAN POTASSIUM 50 MG TABLET PO SCH (09:00)
[2022-02-05] MEDS: CLOTRIMAZOLE/BETAMETASONE DIPROPIONATE 15 GM TUBE TP SCH ×2 (09:00→16:29)
[2022-02-05] MEDS: METFORMIN 500 MG TABLET PO SCH ×2 (09:00→16:28)
[2022-02-05] MEDS: AMOX/CLAVULANATE 875 MG TABLET PO SCH (09:00)
[2022-02-05] MEDS: MULTIVIT W/MINERALS 1 TAB TABLET PO SCH (09:00)
[2022-02-05] MEDS: ASPIRIN 81 MG TAB.CHEW PO SCH (09:00)
[2022-02-05] MEDS: FAMOTIDINE (20 MG) 20 MG TABLET PO SCH (09:00)
[2022-02-05] MEDS: QUETIAPINE FUMARATE 25 MG TABLET PO SCH (09:06)
[2022-02-05] MEDS: Z GUARD REMEDY 4 OZ OINT TP SCH ×2 (09:11→16:29)
[2022-02-05] MEDS: HALOPERIDOL 5 MG TABLET PO SCH ×3 (11:30→16:28)
[2022-02-05] MEDS: HALOPERIDOL LACTATE INJ 5 MG/ML VIAL IM PRN ×2 (12:24→19:17)
[2022-02-05 16:00] VITALS: BP 122/69
[2022-02-05] MEDS: ATORVASTATIN 10 MG TABLET PO SCH (17:01)
--- NOTE | 2022-02-05 20:00 | NUR ---
GPS RN NOTES RECEIVED PT IN BED AWAKE, A/O X1. YELLING INTERMITTENTLY, IRRITABLE, UNCOOPERATIVE, DENIES SI AT THIS TIME, PARANOID AND GUARDED. NO S/SX OF ACUTE DISTRESS NOTED. SAFETY PRECAUTIONS IN PLACE. WILL CONTINUE TO MONITOR Q15 MIN FOR SAFETY AND BEHAVIOR.
[2022-02-05 20:29] VITALS: BP 149/80
[2022-02-05] MEDS: INSULIN GLARGINE, 100 UNIT/ML CARTRIDGE SQ SCH (21:08)
--- NOTE | 2022-02-05 21:08 | NUR ---
RN NOTES PT REFUSED GABAPENTIN, ACCU-CHECK AND LANTUS. EXPLAINED RISKS AND BENEFITS BUT THE PT STARTED YELLING AND BECAME AGITATED.
[2022-02-06] MEDS: GABAPENTIN 100 MG CAPSULE PO SCH ×3 (05:00→21:00)
[2022-02-06] MEDS: BLOOD SUGAR DIAGNOSTIC 1 EACH STRIP IN SCH ×4 (07:11→22:00)
--- NOTE | 2022-02-06 07:11 | NUR ---
RN NOTES PT REFUSED ACCU-CHECK, CLAIMING SHE IS NOT DIABETIC. REORIENTED PT AND GAVE PT EDUCATION BUT STILL REFUSED.
[2022-02-06] MEDS: LEVOTHYROXINE SODIUM 125 MCG TABLET PO SCH ×2 (07:30→08:33)
--- NOTE | 2022-02-06 07:30 | NUR ---
GPS RN OPENING NOTE PATIENT IS IN BED, ASLEEP BUT EASILY AROUSABLE. BREATHING UNLABORED AND NOT IN ANY FORM OF DISTRESS. ALL HOSPITAL SAFETY PRECAUTIONS KEPT IN PLACE. WILL CONTINUE TO MONITOR.
[2022-02-06 08:00] VITALS: BP 143/79
[2022-02-06] MEDS: ASPIRIN 81 MG TAB.CHEW PO SCH ×2 (08:31→08:41)
[2022-02-06] MEDS: METFORMIN 500 MG TABLET PO SCH ×3 (08:31→17:00)
[2022-02-06] MEDS: LOSARTAN POTASSIUM 50 MG TABLET PO SCH ×2 (08:32→08:42)
[2022-02-06] MEDS: MULTIVIT W/MINERALS 1 TAB TABLET PO SCH ×2 (08:32→08:47)
[2022-02-06] MEDS: FAMOTIDINE (20 MG) 20 MG TABLET PO SCH ×2 (08:32→08:47)
[2022-02-06] MEDS: HALOPERIDOL 5 MG TABLET PO SCH ×4 (08:33→17:00)
[2022-02-06] MEDS: METOPROLOL TARTRATE 25 MG TABLET PO SCH ×3 (08:33→17:00)
[2022-02-06] MEDS: ESCITALOPRAM OXALATE (10 MG) 10 MG TABLET PO SCH ×2 (08:33→08:42)
[2022-02-06] MEDS: CLOTRIMAZOLE/BETAMETASONE DIPROPIONATE 15 GM TUBE TP SCH ×2 (08:39→16:50)
[2022-02-06] MEDS: ENOXAPARIN SODIUM 40 MG/0.4 ML DISP.SYRIN SQ SCH (08:39)
[2022-02-06] MEDS: Z GUARD REMEDY 4 OZ OINT TP SCH ×2 (08:39→16:51)
--- NOTE | 2022-02-06 09:00 | NUR ---
RN NOTE PATIENT REFUSED MEDS. MEDS WERE RETURNED TO MEDICATION BIN PER HOSPITAL PROTOCOL, WITH THE EXCEPTION OF HALDOL AND LEXAPRO WHICH WERE WASTED THESE MEDS HAD BEEN CUT IN HALF.
[2022-02-06] MEDS: HALOPERIDOL LACTATE INJ 5 MG/ML VIAL IM PRN (09:51)
--- NOTE | 2022-02-06 09:58 | NUR ---
RN NOTE ATTEMPTED TO GIVE HALDOL PO, PATIENT STILL REFUSED AND KEPT YELLING. HALDOL IM INJECTION GIVEN PER DOCTOR'S ORDER.
--- NOTE | 2022-02-06 11:44 | NUR ---
RN NOTE PATIENT REFUSED ACCUCHECK AND YELLED AT RN, STATING "WHY DO I NEED MY SUGAR TO BE CHECKED?! I AM NOT DIABETIC! NOW GET OUT!"
[2022-02-06 16:00] VITALS: BP 149/72
[2022-02-06] MEDS: ATORVASTATIN 10 MG TABLET PO SCH (17:05)
--- NOTE | 2022-02-06 18:41 | NUR ---
RN CLOSING NOTE PATIENT'S VITAL SIGNS REMAINED STABLE THROUGHOUT SHIFT. SHE, HOWEVER, REMAINED AGITATED,CONFUSED, NONCOMPLIANT AND UNCOOPERATIVE THE ENTIRE SHIFT. ALL OF HER NEEDS WERE ATTENDED TO AND ALL HOSPITAL SAFETY PRECAUTIONS WERE KEPT IN PLACE.WILL ENDORSE TO SENIOR DATABASE ADMINISTRATOR NURSE.
[2022-02-06 20:00] VITALS: BP 107/54
--- NOTE | 2022-02-06 20:22 | NUR ---
RN NOTE: HALDOL ORDER CLARIFIED PATIENT IS RIESED AND HAD AN ORDER OF HALDOL 2.5 MG PO BID, PER MD ORDER, GIVE HALDOL INJECTION 5 MG IM Q12H PRN FOR EACH REFUSAL OF PO HALDOL. AM SHIFT RN FOLLOWED MD ORDER AND HALDOL IM INJECTION FOR PO HALDOL REFUSAL AT 1700 WAS NOT GIVEN TODAY SINCE THE IM INJECTION ORDER IS Q12H. CALLED CONCEPCION LILIYA TO CLARIFY THE ORDER, CONCEPCION ORDERED TO CHANGE HALDOL INJECTION 5 MG IM TO BID PRN INSTEAD OF Q 12 HOURS FOR EACH REFUSAL OF PO HALDOL BID. CONCEPCION ORDERED TO GIVE HALDOL 5 MG INJECTION IM NOW AND THEN FOLLOW THE ORDER FROM TOMORROW. ORDER NOTED AND CARRIED OUT. CHARGE NURSE IS AWARE.
[2022-02-06] MEDS ORDERED: HALOPERIDOL LACTATE INJ 5 MG/ML VIAL IM PRN (20:30)
--- NOTE | 2022-02-06 20:45 | NUR ---
RN NOTE PER AM SHIFT RN REPORT, PATIENT HAD REFUSED PO HALDOL AT 1700, IM INJECTION WAS NOT GIVEN FOR REFUSAL OF PO HALDOL AT 1700, ORDER WAS CLARIFIED WITH CONCEPCION LOVELL, HALDOL LACTATE INJECTION 5 MG IM ADMINISTERED ORDERED BY MD. WILL CONTINUE TO MONITOR FOR ANY CHANGE OF CONDITION.
--- NOTE | 2022-02-06 21:36 | NUR ---
RN NOTE: MEDICATION REFUSAL PT REFUSED GABAPENTIN X 3. EXPLAINED RISKS AND BENEFITS BUT THE PT STARTED YELLING, BECAME AGITATED AND ASKED THE NURSE TO LEAVE THE ROOM.
[2022-02-06] MEDS: INSULIN GLARGINE, 100 UNIT/ML CARTRIDGE SQ SCH (22:00)
--- NOTE | 2022-02-06 22:19 | NUR ---
RN NOTE: MEDICATION REFUSAL PATIENT REFUSED ACCU CHECK AND LANTUS INSULIN SCHEDULED AT 2200 X 3 DESPITE OF RISKS AND BENEFITS EXPLANATIONS. PATIENT IS EXTREMELY UNCOOPERATIVE, STARTS YELLING, SCREAMING, RESTLESS, AGGRESSIVE.
[2022-02-07] MEDS: GABAPENTIN 100 MG CAPSULE PO SCH ×3 (05:00→21:00)
[2022-02-07] MEDS: LEVOTHYROXINE SODIUM 125 MCG TABLET PO SCH (07:30)
[2022-02-07] MEDS: BLOOD SUGAR DIAGNOSTIC 1 EACH STRIP IN SCH ×4 (07:30→21:19)
--- NOTE | 2022-02-07 07:52 | NUR ---
RN NOTE PT REFUSED ACCU CHECK AND LEVOTHYROXINE.
[2022-02-07] MEDS: LOSARTAN POTASSIUM 50 MG TABLET PO SCH (08:01)
[2022-02-07] MEDS: ASPIRIN 81 MG TAB.CHEW PO SCH (08:01)
[2022-02-07] MEDS: ESCITALOPRAM OXALATE (10 MG) 10 MG TABLET PO SCH (08:02)
[2022-02-07] MEDS: METOPROLOL TARTRATE 25 MG TABLET PO SCH ×2 (08:02→16:11)
[2022-02-07] MEDS: ENOXAPARIN SODIUM 40 MG/0.4 ML DISP.SYRIN SQ SCH (08:02)
[2022-02-07] MEDS: FAMOTIDINE (20 MG) 20 MG TABLET PO SCH (08:02)
[2022-02-07] MEDS: MULTIVIT W/MINERALS 1 TAB TABLET PO SCH (08:02)
[2022-02-07] MEDS: METFORMIN 500 MG TABLET PO SCH ×2 (08:02→16:11)
[2022-02-07] MEDS: CLOTRIMAZOLE/BETAMETASONE DIPROPIONATE 15 GM TUBE TP SCH ×2 (08:04→16:12)
[2022-02-07] MEDS: Z GUARD REMEDY 4 OZ OINT TP SCH ×2 (08:04→16:12)
[2022-02-07] MEDS: HALOPERIDOL 5 MG TABLET PO SCH ×2 (08:16→16:13)
[2022-02-07 08:27] VITALS: BP 149/75
--- NOTE | 2022-02-07 09:59 | NUR ---
ALL MEDS REFUSED BY PT EXCEPT FOR HALDOL.
[2022-02-07] MEDS ORDERED: HALOPERIDOL DECANOATE IM 100 MG/ML AMPUL IM ONE (13:00)
--- NOTE | 2022-02-07 14:38 | NUR ---
Long acting haloperidol deconoate im injection given.
[2022-02-07 16:00] VITALS: BP 116/63
--- NOTE | 2022-02-07 17:13 | NUR ---
RN CLOSING NOTE PATIENT'S VITAL SIGNS REMAINED STABLE THROUGHOUT SHIFT. PT REMAINED AGITATED, CONFUSED, NONCOMPLIANT AND UNCOOPERATIVE DURING MAJORITY OF SHIFT. LONG ACTING HALDOL GIVEN DURING SHIFT PER MD ORDER. ALL OF PTS NEEDS WERE ATTENDED TO AND ALL HOSPITAL SAFETY PRECAUTIONS WERE KEPT IN PLACE. WILL ENDORSE TO LAUNDRY WASHER NURSE.
[2022-02-07] MEDS: ATORVASTATIN 10 MG TABLET PO SCH (17:21)
[2022-02-07 20:00] VITALS: BP 124/78
[2022-02-07] MEDS: INSULIN GLARGINE, 100 UNIT/ML CARTRIDGE SQ SCH (21:19)
--- NOTE | 2022-02-07 22:30 | NUR ---
PRODUCT ACCOUNTANT NOTE: PATIENT REFUSED SCHEDULED MEDICATION AND ACCU CHECK. EXPLAINED THE RISKS AND BENEFITS X3. PATIENT STILL REFUSED.
[2022-02-08] MEDS: GABAPENTIN 100 MG CAPSULE PO SCH ×3 (05:00→21:00)
[2022-02-08] MEDS: BLOOD SUGAR DIAGNOSTIC 1 EACH STRIP IN SCH ×4 (07:30→21:37)
[2022-02-08] MEDS: LEVOTHYROXINE SODIUM 125 MCG TABLET PO SCH (07:30)
[2022-02-08 08:00] VITALS: BP 115/66
[2022-02-08] MEDS: MULTIVIT W/MINERALS 1 TAB TABLET PO SCH (09:00)
[2022-02-08] MEDS: HALOPERIDOL 5 MG TABLET PO SCH ×2 (09:28→16:33)
[2022-02-08] MEDS: ASPIRIN 81 MG TAB.CHEW PO SCH (09:29)
[2022-02-08] MEDS: METFORMIN 500 MG TABLET PO SCH ×2 (09:29→16:33)
[2022-02-08] MEDS: FAMOTIDINE (20 MG) 20 MG TABLET PO SCH (09:29)
[2022-02-08] MEDS: METOPROLOL TARTRATE 25 MG TABLET PO SCH ×2 (09:30→16:34)
[2022-02-08] MEDS: LOSARTAN POTASSIUM 50 MG TABLET PO SCH (09:30)
[2022-02-08] MEDS: ESCITALOPRAM OXALATE (10 MG) 10 MG TABLET PO SCH (09:30)
[2022-02-08] MEDS: Z GUARD REMEDY 4 OZ OINT TP SCH ×2 (09:35→16:34)
[2022-02-08] MEDS: ENOXAPARIN SODIUM 40 MG/0.4 ML DISP.SYRIN SQ SCH (09:35)
[2022-02-08] MEDS: CLOTRIMAZOLE/BETAMETASONE DIPROPIONATE 15 GM TUBE TP SCH ×2 (09:36→16:34)
[2022-02-08 16:00] VITALS: BP 109/71
[2022-02-08] MEDS: ATORVASTATIN 10 MG TABLET PO SCH (17:22)
--- NOTE | 2022-02-08 19:13 | NUR ---
RN OPENING NOTE PATIENT IN BED, AWAKE. PATIENT IS CALM AT THIS TIME, A/O X 1. ON A 5250 HOLD FOR DTO/DTS/GD. PATIENT ON RA, TOLERATING WELL, BREATHING EVEN AND UNLABORED. SAFETY MEASURES IN PLACE: BED LOCKED AND IN LOWEST POSITION, BED ALARM ON. WILL MONITOR PATIENT CLOSELY.
[2022-02-08 20:00] VITALS: BP 124/69
[2022-02-08] MEDS: INSULIN REGULAR, HUMAN 100 UNIT/ML 3 ML VIAL SQ PRN (21:44)
[2022-02-08] MEDS: INSULIN GLARGINE, 100 UNIT/ML CARTRIDGE SQ SCH (21:45)
--- NOTE | 2022-02-08 21:58 | NUR ---
RN NOTE PATIENT REFUSED GABAPENTIN BECAUSE SHE STATES THAT THERE'S SOMETHING IN THE GABAPENTIN THAT MAKES HER FEET NUMB. BS 318 MG/DL, ADMINISTERED INSULIN COVERAGE, PATIENT NEEDED ENCOURAGEMENT WITH INSULIN ADMIN AND ACCUCHECK. PROVIDED PATIENT SNACKS. WILL ASSESS PATIENT FOR HYPO/HYPERGLYCEMIA.
[2022-02-09] MEDS: GABAPENTIN 100 MG CAPSULE PO SCH ×3 (05:00→21:16)
--- NOTE | 2022-02-09 05:17 | NUR ---
RN NOTE PATIENT REFUSED GABAPENTIN SHE SAYS IT AFFECTS HOW SHE FEELS. RISK AND BENEFITS EXPLAINED TO PATIENT. SHE THEN SAYS "3 MILLION PEOPLE HAVE FROM THAT". STILL REFUSES MEDICATION.
[2022-02-09] MEDS: BLOOD SUGAR DIAGNOSTIC 1 EACH STRIP IN SCH ×4 (06:30→21:15)
--- NOTE | 2022-02-09 06:30 | NUR ---
RN NOTE PATIENT'S BS 195 MG/DL, PATIENT REFUSED ANY INSULIN COVERAGE. RISK AND BENEFITS EXPLAINED.
[2022-02-09 08:00] VITALS: BP 121/73
[2022-02-09] MEDS: ASPIRIN 81 MG TAB.CHEW PO SCH (08:50)
[2022-02-09] MEDS: ESCITALOPRAM OXALATE (10 MG) 10 MG TABLET PO SCH (08:50)
[2022-02-09] MEDS: LEVOTHYROXINE SODIUM 125 MCG TABLET PO SCH (08:50)
[2022-02-09] MEDS: METOPROLOL TARTRATE 25 MG TABLET PO SCH ×2 (08:51→17:00)
[2022-02-09] MEDS: FAMOTIDINE (20 MG) 20 MG TABLET PO SCH (08:51)
[2022-02-09] MEDS: LOSARTAN POTASSIUM 50 MG TABLET PO SCH (08:51)
[2022-02-09] MEDS: HALOPERIDOL 5 MG TABLET PO SCH ×4 (08:51→17:00)
[2022-02-09] MEDS: METFORMIN 500 MG TABLET PO SCH ×2 (08:53→17:00)
[2022-02-09] MEDS: MULTIVIT W/MINERALS 1 TAB TABLET PO SCH (09:00)
[2022-02-09] MEDS: ENOXAPARIN SODIUM 40 MG/0.4 ML DISP.SYRIN SQ SCH (09:00)
[2022-02-09] MEDS: CLOTRIMAZOLE/BETAMETASONE DIPROPIONATE 15 GM TUBE TP SCH ×2 (09:04→16:42)
[2022-02-09] MEDS: Z GUARD REMEDY 4 OZ OINT TP SCH ×2 (09:05→16:42)
--- NOTE | 2022-02-09 11:30 | NUR ---
RN NOTE HALDOL 2.5 MG DOSE AT 1130 NOT ADMINISTERED, DOSE ALREADY GIVEN @0900.
[2022-02-09] MEDS: INSULIN REGULAR, HUMAN 100 UNIT/ML 3 ML VIAL SQ PRN (11:33)
--- NOTE | 2022-02-09 12:00 | NUR ---
RN NOTES 1200 BS 324 MG/DL, PATIENT REFUSED INSULIN COVERAGE PER SLIDING SCALE, SCREAMING "I DON'T HAVE DIABETES".
[2022-02-09 16:00] VITALS: BP 116/60
[2022-02-09] MEDS: ATORVASTATIN 10 MG TABLET PO SCH (17:07)
--- NOTE | 2022-02-09 17:30 | NUR ---
RN NOTE 1730 BS 290 MG/DL, INSULIN COVERAGE REFUSED. PATIENT SCREAMING "I'M NOT DIABETIC, THAT INSULIN WILL KILL ME".
--- NOTE | 2022-02-09 18:47 | NUR ---
RN NOTES PATIENT RESTING IN BED. EASILY AROUSED. A/O X1, VERBALLY RESPONSIVE. NO SIGNS OF ACUTE RESPIRATORY DISTRESS NOTED. STILL WITH EPISODES OF REFUSING MEDICAL MEDS BUT TOOK PSYCHIATRIC MEDS. NOTED WITH EPISODES OF SCREAMING, "I DON'T NEED THOSE MEDS, THOSE MEDICATIONS ARE GONNA KILL ME". CALMED AND REASSURED PATIENT. SAFETY MEASURES MAINTAINED. BED IN LOWEST AND LOCKED POSITION, SIDE RAILS UP, BED ALARM ON, NEEDS ATTENDED. WILL ENDORSE TO NEXT SHIFT FOR CONTINUITY OF CARE.
[2022-02-09 20:12] VITALS: BP 129/73
--- NOTE | 2022-02-09 21:15 | NUR ---
RN NOTE PATIENT'S BLOOD SUGAR TONIGHT IS 253. PATIENT REFUSING INSULIN SLIDING SCALE AND INSULIN LANTUS AT THIS TIME. EDUCATED ON RISKS/BENEFITS OF REFUSING MEDICATION WITH PATIENT CONTINUING TO REFUSE X 3 ATTEMPTS.
[2022-02-09] MEDS: INSULIN GLARGINE, 100 UNIT/ML CARTRIDGE SQ SCH (21:16)
[2022-02-10] MEDS: GABAPENTIN 100 MG CAPSULE PO SCH ×4 (05:00→21:00)
--- NOTE | 2022-02-10 07:15 | NUR ---
GPS RN OPENING NOTE RECEIVED PATIENT IN BED, AWAKE AND VERBALLY RESPONSIVE . BREATHING UNLABORED AND NOT IN ANY FORM OF DISTRESS. ALL HOSPITAL SAFETY PRECAUTIONS KEPT IN PLACE. WILL CONTINUE TO MONITOR.
[2022-02-10] MEDS: BLOOD SUGAR DIAGNOSTIC 1 EACH STRIP IN SCH ×4 (07:28→22:00)
[2022-02-10] MEDS: INSULIN REGULAR, HUMAN 100 UNIT/ML 3 ML VIAL SQ PRN (07:29)
--- NOTE | 2022-02-10 07:30 | NUR ---
RN NOTE PATIENT'S BLOOD SUGAR IS 219. REFUSED INSULIN FOR SLIDING SCALE . EDUCATED ON RISKS/BENEFITS OF REFUSING MEDICATION WITH PATIENT CONTINUING TO REFUSE X 3 ATTEMPTS.
[2022-02-10 08:00] VITALS: BP 116/58
[2022-02-10] MEDS: LEVOTHYROXINE SODIUM 125 MCG TABLET PO SCH ×2 (08:40→09:00)
[2022-02-10] MEDS: ASPIRIN 81 MG TAB.CHEW PO SCH ×2 (08:41→09:00)
[2022-02-10] MEDS: METFORMIN 500 MG TABLET PO SCH ×4 (08:41→16:56)
[2022-02-10] MEDS: FAMOTIDINE (20 MG) 20 MG TABLET PO SCH ×2 (08:41→09:00)
[2022-02-10] MEDS: MULTIVIT W/MINERALS 1 TAB TABLET PO SCH ×2 (08:41→09:00)
[2022-02-10] MEDS: METOPROLOL TARTRATE 25 MG TABLET PO SCH ×2 (08:42→09:00)
[2022-02-10] MEDS: ESCITALOPRAM OXALATE (10 MG) 10 MG TABLET PO SCH ×2 (08:42→09:00)
[2022-02-10] MEDS: LOSARTAN POTASSIUM 50 MG TABLET PO SCH ×2 (08:42→09:00)
[2022-02-10] MEDS: HALOPERIDOL 5 MG TABLET PO SCH ×4 (08:43→16:56)
[2022-02-10] MEDS: ENOXAPARIN SODIUM 40 MG/0.4 ML DISP.SYRIN SQ SCH ×2 (08:50→09:00)
[2022-02-10] MEDS: Z GUARD REMEDY 4 OZ OINT TP SCH ×2 (09:16→16:55)
[2022-02-10] MEDS: HALOPERIDOL LACTATE INJ 5 MG/ML VIAL IM PRN ×3 (09:49→17:17)
[2022-02-10] MEDS: CLOTRIMAZOLE/BETAMETASONE DIPROPIONATE 15 GM TUBE TP SCH ×2 (09:53→16:53)
--- NOTE | 2022-02-10 10:00 | NUR ---
RN NOTE PATIENT REFUSED TO TAKE ALL DUE MEDS AT 0900 AND AGREED TO HAVE THE HALDOL IM INJECTION GIVEN
--- NOTE | 2022-02-10 15:06 | NUR ---
RN NOTE PATIENT NOTED TO BE VERY ANXIOUS AND TRIED TO CLIMB OUT OF BED ,ATIVAN O.5 MG BY MOUTH GIVEN ORDERED Addendum: 02/10/22 at 1657 by KOLTON WEIR RN WRONG DOCUMENTATION
[2022-02-10 16:00] VITALS: BP 115/59
--- NOTE | 2022-02-10 16:58 | NUR ---
RN NOTES PATIENT OFFERED WITH 1700 DUE MEDS AND SHE REFUSED , ALSO BLOOD SUGAR CHECK OFFERED 3X AND STILL REFUSING
[2022-02-10] MEDS: ATORVASTATIN 10 MG TABLET PO SCH (17:03)
[2022-02-10 20:07] VITALS: BP 136/72
[2022-02-10] MEDS: INSULIN GLARGINE, 100 UNIT/ML CARTRIDGE SQ SCH (22:00)
--- NOTE | 2022-02-10 22:15 | NUR ---
Pt refused PM meds and blood sugar check. Pt states, " i am not diabetic , i dont need blood sugar checks and insulin. Refused med Neurontin 100 mg po. Pt states, " i dont need or take that medication". Explained risk and benefits. Offered x3. Still refused. Pt is aggressive and angry. No s/s of pain or discomfort. No s/s of hypo/hyperglycemia. Vital signs within normal levels. Will continue to monitor. Frequent visuall check done for safety. Charge nurse RN aware. Will endorse to next shift.
[2022-02-11] MEDS: GABAPENTIN 100 MG CAPSULE PO SCH ×2 (05:00→13:00)
--- NOTE | 2022-02-11 05:43 | NUR ---
Pt refused 0500 med Neurontin 100 mg 1 cap po. Explained risk and benefits. Offered x3 and still refused. Will endorse to next shift. Will continue to monitor.
[2022-02-11] MEDS: BLOOD SUGAR DIAGNOSTIC 1 EACH STRIP IN SCH ×2 (07:30→11:51)
[2022-02-11] MEDS: INSULIN REGULAR, HUMAN 100 UNIT/ML 3 ML VIAL SQ PRN (07:34)
--- NOTE | 2022-02-11 07:53 | NUR ---
SW Discharge Note: Patient will be discharged to us[facility] facility [facility] [address] [facility], [place] [address]; ). Please arrange transportation at 1PM. Endoscopy Tech spoke with Susan stitch separator at [facility]; ([phone], who stated patient will be accepted today. Patients DPOA Aurea ([phone]) is aware and agreeable. Patient is alert and oriented x1 and is unable to plan for self-care. Patient denies any suicidal or homicidal ideations. Patient is aware and agreeable with discharge plans. Patient will continue to follow-up with (psychiatrist) Dr. Zuniga located at [id number] [place] [id number]; ([phone]) and (rehabilitation caseworker) Dr. Orona [address] [facility] [facility] [address], [place] [address]; ([phone]). Patient presents with euthymic and congruent mood.
[2022-02-11 08:00] VITALS: BP_SYST 122; BP_SYST 125; BP_DIAS 62; BP_DIAS 87
[2022-02-11] MEDS: METFORMIN 500 MG TABLET PO SCH (08:45)
[2022-02-11] MEDS: CLOTRIMAZOLE/BETAMETASONE DIPROPIONATE 15 GM TUBE TP SCH (08:46)
[2022-02-11] MEDS: Z GUARD REMEDY 4 OZ OINT TP SCH (08:46)
[2022-02-11] MEDS: METOPROLOL TARTRATE 25 MG TABLET PO SCH (08:46)
[2022-02-11] MEDS: HALOPERIDOL LACTATE INJ 5 MG/ML VIAL IM PRN (08:46)
[2022-02-11] MEDS: HALOPERIDOL 5 MG TABLET PO SCH ×2 (08:46→13:01)
--- NOTE | 2022-02-11 13:35 | NUR ---
RN NOTE- PT DC AT THIS TIME TO [facility]. VS STABLE, PT ALERT CONFUSED ORIENTED TO PERSON ONLY. REPORT CALLED TO FACILITY AND AFTERCARE DISCUSSED AND UNDERSTOOD. ID [id number] REMOVED. ESCORTED OFF UNIT BY STAFF
== END 2022-02-11 13:20 | DRG 885 ==
LOC: ER 08:46 → GPS 11:25
PROVIDERS: ADMIT Nurse Practitioner Psychiatric/Mental Health; ATTEND Internal Medicine
DX: F25.9 Schizoaffective disorder, unspecified (principal); F01.50 Vascular dementia, unspecified severity, without behavioral disturbance, psychotic disturbance, mood disturbance, and anxiety; G93.40 Encephalopathy, unspecified; N39.0 Urinary tract infection, site not specified; F33.9 Major depressive disorder, recurrent, unspecified; J44.9 Chronic obstructive pulmonary disease, unspecified; I25.10 Atherosclerotic heart disease of native coronary artery without angina pectoris; E78.5 Hyperlipidemia, unspecified; F41.9 Anxiety disorder, unspecified; I10 Essential (primary) hypertension; E03.9 Hypothyroidism, unspecified; Z66 Do not resuscitate; E11.9 Type 2 diabetes mellitus without complications; F94.0 Selective mutism; Z88.1 Allergy status to other antibiotic agents; Z88.8 Allergy status to other drugs, medicaments and biological substances; Z79.4 Long term (current) use of insulin; Z79.51 Long term (current) use of inhaled steroids; Z79.82 Long term (current) use of aspirin; Z79.84 Long term (current) use of oral hypoglycemic drugs; Z79.899 Other long term (current) drug therapy; Z73.6 Limitation of activities due to disability; B96.89 Other specified bacterial agents as the cause of diseases classified elsewhere; R79.89 Other specified abnormal findings of blood chemistry
CPT/HCPCS: 36415; 80048-TC; 80076-TC; 81001; 82962-TC; 85025-TC; 87081-TC; 87086-TC; 87186-TC; 97110-TC; 97530-TC; C9803; G0480; J1630; J1631; J1650; J1815